=== PATIENT | female | born 1930 | race Caucasian/White ===

== ENCOUNTER 2018-05-27 13:05 | Inpatient (IN) | payer MEDICARE ==
[~2018-05-27] VITALS: Ht 154.9 cm; Wt 54.0 kg
[2018-05-27 13:32] LABS: BASO # 0.1 x10^3/uL (0.0-0.2); BASO % 1 % (0-3); EOS % 1 % (0-3); HEMATOCRIT 41.9 % (36.0-47.0); HEMOGLOBIN 13.9 g/dL (12.0-15.5); LYMPH % 51 % (24-48); MEAN CORPUSCULAR HEMOGLOBIN 30 pg (25-35); MEAN CORPUSCULAR HGB CONC 33 g/dL (31-37); MEAN CORPUSCULAR VOLUME 91 fL (79-100); MONO # 0.5 x10^3/uL (0.0-1.1); MONO % 8 % (0-9); NEUT # 2.3 x10^3uL (1.8-7.7); NEUT % 39 % (31-73); PLATELET COUNT 298 x10^3/uL (140-400); RED BLOOD COUNT 4.59 x10^6/uL (3.50-5.40); RED CELL DISTRIBUTION WIDTH 13.4 % (11.5-14.5); WHITE BLOOD COUNT 5.9 x10^3/uL (4.0-11.0)
[2018-05-27 13:40] LABS: PROTHROMBIN TIME PATIENT 13.6 SEC (11.7-14.0)
[2018-05-27 13:45] LABS: CALCIUM 9.6 mg/dL (8.5-10.1); CREATININE 0.7 mg/dL (0.6-1.0); POTASSIUM 3.7 mmol/L (3.5-5.1)
[2018-05-27 13:50] LABS: DIRECT BILIRUBIN 0.1 mg/dL (0.0-0.2); TOTAL BILIRUBIN 0.4 mg/dL (0.2-1.0); TOTAL PROTEIN 7.1 g/dL (6.4-8.2)
--- NOTE | 2018-05-27 14:21 | RAD ---
PQRS Compliance Statement: One or more of the following individualized dose reduction techniques were utilized for this examination: 1. Automated exposure control 2. Adjustment of the mA and/or kV according to patient size 3. Use of iterative reconstruction technique CT head without contrast 05/27/2018 1:41 PM INDICATION: Confusion COMPARISON: None available TECHNIQUE: Multiple axial CT images of the head were obtained from skull base through the vertex without intravenous contrast. FINDINGS: Head: Ventricles, sulci and basal cisterns are prominent compatible with mild generalized cerebral volume loss. . Low-attenuation in the periventricular white matter is suggestive of chronic small vessel ischemic changes. There is no hydrocephalus. Zuniga-white matter differentiation is normal. There is no acute intracranial hemorrhage. There is no mass, mass effect or midline shift. 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 Visualized portions of the orbits are normal with exception of bilateral lens replacement and senescent calcification. Mild mucosal thickening of the left sphenoid sinus is identified. Mastoid air cells are well aerated. Scalp and calvaria are normal. IMPRESSION: No acute intracranial hemorrhage. Mild generalized cerebral volume loss. Low-attenuation in the periventricular white matter is suggestive of chronic small vessel ischemic changes. There is a remote lacunar infarct in the left moise. Electronically signed by: Dorinda Jeffery MD (05/27/2018 2:18 PM) [id number]
[2018-05-27] MEDS ORDERED: IV NORMAL SALINE 1000ML BAG 1,000 ML IV SCH (14:33)
[2018-05-27] MEDS ORDERED: ONDANSETRON PF 4 MG/2 ML VIAL. IV PRN ×2 (14:45→15:15)
--- NOTE | 2018-05-27 14:46 | RAD ---
CHEST AP ONLY Clinical indications: CHEST PAIN COMPARISON: None available. Findings: No acute lung infiltrate or pleural effusion or pulmonary edema or lung mass or pneumothorax is seen. The heart size, pulmonary vasculature, mediastinum and both leah are unremarkable. Subluxation of the humeral head of the left shoulder is seen which may be secondary to chronic rotator cuff tear. Impression: No acute radiographic abnormality is seen. Electronically signed by: Benjamin Bell MD (05/27/2018 2:43 PM) [place] [id number]
--- NOTE | 2018-05-27 14:57 | PHYS DOC ---
Past Medical History Past Medical History: Asthma, CHF, Hypertension, Other Additional Past Medical Histor: WEAKNESS, NECK FX Past Surgical History: Other Additional Past Surgical Histo: UNKNOWN Alcohol Use: None Drug Use: None Adult General Chief Complaint Chief Complaint: ALTERED MENTAL STATUS HPI HPI 87-year-old female presenting to the emergency department today with decreased level of consciousness. She comes from the detention after they report she has decreasing level of consciousness. They last saw around 9:00 where she had normal mentation. EMS reports a more abrupt change in consciousness. The son who came later in the emergency department course states that this actually has been happening for more for 2 months. The patient denies being in any pain. For me the patient opens her eyes spontaneously makes eye contact and is oriented to year. Review of systems is negative for chest pain shortness of breath abdominal pain nausea vomiting. All other review of systems is negative. ED course: 79-year-old female presenting with decreasing level of consciousness. Here in the emergency department she is alert and oriented. On arrival vital signs show her to be afebrile with a normal heart rate. Blood pressure mildly elevated. CBC unremarkable. Chemistry panel unremarkable. Normal troponin. Normal coags. CT the head shows a remote lacunar infarct. Otherwise chest x-ray reviewed by myself shows clear lungs bilaterally without obvious infiltrate or pneumothorax. On reexamination she continued to need is to be alert however given concerns and this remote lacunar infarct we will admit her for neurology consultation. I spoke with Dr. Fisher who accepted her for admission. Basic bridge orders placed. Current Medications Current Medications Current Medications Medications (Trade) Dose Ordered Sig/No Start Time Stop Time Status Last Admin Dose Admin Ondansetron HCl (Zofran) 4 mg PRN Q8HRS PRN 05/27/18 14:45 05/28/18 14:44 UNV Sodium Chloride 1,000 ml @ 70 mls/hr [id number] 05/27/18 14:33 05/27/18 18:32 UNV Physical Exam Physical Exam Constitutional: Well developed, well nourished, no acute distress, non-toxic appearance. [] HENT: Normocephalic, atraumatic, bilateral external ears normal, oropharynx moist, no oral exudates, nose normal. [] Eyes: PERRLA, EOMI, conjunctiva normal, no discharge. [] Neck: Normal range of motion, no tenderness, supple, no stridor. [] Cardiovascular:Heart rate regular rhythm, no murmur [] Lungs & Thorax: Bilateral breath sounds clear to auscultation [] Abdomen: Bowel sounds normal, soft, no tenderness, no masses, no pulsatile masses. [] Skin: Warm, dry, no erythema, no rash. [] Back: No tenderness, no CVA tenderness. [] Extremities: No tenderness, no cyanosis, no clubbing, ROM intact, no edema. [] Neurologic: Mental status: Awake oriented and alert Cranial nerves: Extraocular movements intact, eyebrows elayne bilaterally, smile symmetric, uvula elevation nl, shoulder shrug intact bilaterally, tongue protrusion normal DTRs: 2+ Sensation: equal and normal in all extremities Strength: 5/5 in upper and lower extremities bilaterally Psychologic: Affect normal, judgement normal, mood normal. [] Current Patient Data Vital Signs Vital Signs Date Time Temp Pulse Resp B/P (MAP) Pulse Ox O2 Delivery O2 Flow Rate FiO2 05/27/18 13:05 97.6 68 18 164/80 (108) 96 Room Air 97.6 Lab Values Laboratory Tests Test 05/27/18 13:20 White Blood Count 5.9 x10^3/uL (4.0-11.0) Red Blood Count 4.59 x10^6/uL (3.50-5.40) Hemoglobin 13.9 g/dL (12.0-15.5) Hematocrit 41.9 % (36.0-47.0) Mean Corpuscular Volume 91 fL (79-100) Mean Corpuscular Hemoglobin 30 pg (25-35) Mean Corpuscular Hemoglobin Concent 33 g/dL (31-37) Red Cell Distribution Width 13.4 % (11.5-14.5) Platelet Count 298 x10^3/uL (140-400) Neutrophils (%) (Auto) 39 % (31-73) Lymphocytes (%) (Auto) 51 % (24-48) H Monocytes (%) (Auto) 8 % (0-9) Eosinophils (%) (Auto) 1 % (0-3) Basophils (%) (Auto) 1 % (0-3) Neutrophils # (Auto) 2.3 x10^3uL (1.8-7.7) Lymphocytes # (Auto) 3.0 x10^3/uL (1.0-4.8) Monocytes # (Auto) 0.5 x10^3/uL (0.0-1.1) Eosinophils # (Auto) 0.0 x10^3/uL (0.0-0.7) Basophils # (Auto) 0.1 x10^3/uL (0.0-0.2) Prothrombin Time 13.6 SEC (11.7-14.0) Prothrombin Time INR 1.1 (0.8-1.1) PTT 31 SEC (24-38) Sodium Level 137 mmol/L (136-145) Potassium Level 3.7 mmol/L (3.5-5.1) Chloride Level 98 mmol/L (98-107) Carbon Dioxide Level 28 mmol/L (21-32) Anion Gap 11 (6-14) Blood Urea Nitrogen 19 mg/dL (7-20) Creatinine 0.7 mg/dL (0.6-1.0) Estimated GFR (Cockcroft-Gault) 79.0 Glucose Level 111 mg/dL (70-99) H Calcium Level 9.6 mg/dL (8.5-10.1) Total Bilirubin 0.4 mg/dL (0.2-1.0) Direct Bilirubin 0.1 mg/dL (0.0-0.2) Aspartate Amino Transferase (AST) 31 U/L (15-37) Alanine Aminotransferase (ALT) 28 U/L (14-59) Alkaline Phosphatase 81 U/L (46-116) Troponin I Quantitative < 0.017 ng/mL (0.000-0.055) Total Protein 7.1 g/dL (6.4-8.2) Albumin 4.0 g/dL (3.4-5.0) Lipase 118 U/L (73-393) Laboratory Tests 05/27/18 13:20 Laboratory Tests 05/27/18 13:20 EKG EKG [] Radiology/Procedures Radiology/Procedures [] Course & Med Decision Making Course & Med Decision Making Pertinent Labs and Imaging studies reviewed. (See chart for details) [] Dragon Disclaimer Dragon Disclaimer This electronic medical record was generated, in whole or in part, using a voice recognition dictation system. Departure Departure Impression: Primary Impression: Decreased level of consciousness Disposition: ADMITTED INPATIENT Admitting Physician: Poonam Fisher Condition: STABLE JOCELIN DEL REAL MD May 27, 2018 14:56
[2018-05-27] MEDS ORDERED: ACETAMINOPHEN 500 MG TABLET PO PRN (15:15)
--- NOTE | 2018-05-27 15:18 | PDOC1 ---
History and Physical Date of Admission Date of Admission DATE: 05/27/18 TIME: 15:13 Identification/Chief Complaint Chief Complaint MOre forgetful now at times, dec PO, some confusion Source Source: Caregiver, Chart review, Patient History of Present Illness History of Present Illness 87-year-old white female lives in [place] and uses walker sometimes, brought in by concerned family because of the above chief complaint. Sounds like dementia features beginning. Had some neck surgeries July or August this year. Also needed some hospitalization for 1 week and another institution was told to have transient amnesia and never got back to baseline. HAd MRI, neuro etc and neg work up. She is a full code as I have verified with family. Family has noticed more forgetfulness, occasional confusion. Patient knows she is in the hospital but looks uncomfortable but that's because of her chronic neck pain - prev numerous neck sxs She actually does not want to be admitted CT head and chest x-ray is negative except for brain atrophy/chronic small vessel change. Family concerned about the decreased [id number] Blood work is negative. We are waiting for a UA. Rule out any infectious or reversible problems otherwise this may just be beginning dementia. Consulted neurology, I did order ESR TSH B12. Home meds she can continue, they cannot recall the names of her medications but it is ok to cont them all. Past Medical History CENTRAL NERVOUS SYSTEM: Dementia Past Surgical History Past Surgical History: No pertinent history Family History Family History: No Significant Social History Smoke: No ALCOHOL: none Drugs: None Current Problem List Problem List Problems Medical Problems: (1) Decreased level of consciousness Status: Acute Current Medications Current Medications Current Medications Ondansetron HCl (Zofran) 4 mg PRN Q8HRS PRN IV NAUSEA/VOMITING; Start 05/27/18 at 14:45; Stop 05/28/18 at 14:44; Status UNV Sodium Chloride 1,000 ml @ 70 mls/hr [id number] IV ; Start 05/27/18 at 14:33; Stop 05/27/18 at 18:32; Status UNV Allergies Allergies: Coded Allergies: No Known Drug Allergies (Unverified , 05/27/18) ROS Review of System limited, forgetful features-hard of hearing Physical Exam General: Cooperative, No acute distress HEENT: Atraumatic, PERRLA, EOMI Lungs: Clear to auscultation, Normal air movement Heart: S1S2, RRR, no thrills, no rubs, no gallops, no murmurs Cardiovascular: S1, S2 Breasts: Normal, Rt breast nml w/o mass, Lt breast nml w/o mass, Nipples normal Abdomen: Normal bowel sounds, Soft, No tenderness, No hepatosplenomegaly, No masses Rectal Exam: not examined PELVIC: Nml ext genitalia Extremities: No clubbing, No cyanosis, No edema, Normal pulses, No tenderness/ swelling Skin: No rashes, No breakdown, No significant lesion Neuro: Normal gait, Normal speech, Strength at 5/5 X4 ext, Normal tone, Sensation intact, Cranial nerves 3-12 NL, Reflexes 2+ Psych/Mental Status: Mental status NL, Mood NL Vitals Vitals Vital Signs Date Time Temp Pulse Resp B/P (MAP) Pulse Ox O2 Delivery O2 Flow Rate FiO2 05/27/18 13:05 97.6 68 18 164/80 (108) 96 Room Air 97.6 Labs Labs Laboratory Tests Test 05/27/18 13:20 White Blood Count 5.9 x10^3/uL (4.0-11.0) Red Blood Count 4.59 x10^6/uL (3.50-5.40) Hemoglobin 13.9 g/dL (12.0-15.5) Hematocrit 41.9 % (36.0-47.0) Mean Corpuscular Volume 91 fL (79-100) Mean Corpuscular Hemoglobin 30 pg (25-35) Mean Corpuscular Hemoglobin Concent 33 g/dL (31-37) Red Cell Distribution Width 13.4 % (11.5-14.5) Platelet Count 298 x10^3/uL (140-400) Neutrophils (%) (Auto) 39 % (31-73) Lymphocytes (%) (Auto) 51 % (24-48) Monocytes (%) (Auto) 8 % (0-9) Eosinophils (%) (Auto) 1 % (0-3) Basophils (%) (Auto) 1 % (0-3) Neutrophils # (Auto) 2.3 x10^3uL (1.8-7.7) Lymphocytes # (Auto) 3.0 x10^3/uL (1.0-4.8) Monocytes # (Auto) 0.5 x10^3/uL (0.0-1.1) Eosinophils # (Auto) 0.0 x10^3/uL (0.0-0.7) Basophils # (Auto) 0.1 x10^3/uL (0.0-0.2) Prothrombin Time 13.6 SEC (11.7-14.0) Prothromb Time International Ratio 1.1 (0.8-1.1) Activated Partial Thromboplast Time 31 SEC (24-38) Sodium Level 137 mmol/L (136-145) Potassium Level 3.7 mmol/L (3.5-5.1) Chloride Level 98 mmol/L (98-107) Carbon Dioxide Level 28 mmol/L (21-32) Anion Gap 11 (6-14) Blood Urea Nitrogen 19 mg/dL (7-20) Creatinine 0.7 mg/dL (0.6-1.0) Estimated GFR (Cockcroft-Gault) 79.0 Glucose Level 111 mg/dL (70-99) Calcium Level 9.6 mg/dL (8.5-10.1) Total Bilirubin 0.4 mg/dL (0.2-1.0) Direct Bilirubin 0.1 mg/dL (0.0-0.2) Aspartate Amino Transf (AST/SGOT) 31 U/L (15-37) Alanine Aminotransferase (ALT/SGPT) 28 U/L (14-59) Alkaline Phosphatase 81 U/L (46-116) Troponin I Quantitative < 0.017 ng/mL (0.000-0.055) Total Protein 7.1 g/dL (6.4-8.2) Albumin 4.0 g/dL (3.4-5.0) Lipase 118 U/L (73-393) Laboratory Tests Test 05/27/18 13:20 White Blood Count 5.9 x10^3/uL (4.0-11.0) Red Blood Count 4.59 x10^6/uL (3.50-5.40) Hemoglobin 13.9 g/dL (12.0-15.5) Hematocrit 41.9 % (36.0-47.0) Mean Corpuscular Volume 91 fL (79-100) Mean Corpuscular Hemoglobin 30 pg (25-35) Mean Corpuscular Hemoglobin Concent 33 g/dL (31-37) Red Cell Distribution Width 13.4 % (11.5-14.5) Platelet Count 298 x10^3/uL (140-400) Neutrophils (%) (Auto) 39 % (31-73) Lymphocytes (%) (Auto) 51 % (24-48) Monocytes (%) (Auto) 8 % (0-9) Eosinophils (%) (Auto) 1 % (0-3) Basophils (%) (Auto) 1 % (0-3) Neutrophils # (Auto) 2.3 x10^3uL (1.8-7.7) Lymphocytes # (Auto) 3.0 x10^3/uL (1.0-4.8) Monocytes # (Auto) 0.5 x10^3/uL (0.0-1.1) Eosinophils # (Auto) 0.0 x10^3/uL (0.0-0.7) Basophils # (Auto) 0.1 x10^3/uL (0.0-0.2) Prothrombin Time 13.6 SEC (11.7-14.0) Prothromb Time International Ratio 1.1 (0.8-1.1) Activated Partial Thromboplast Time 31 SEC (24-38) Sodium Level 137 mmol/L (136-145) Potassium Level 3.7 mmol/L (3.5-5.1) Chloride Level 98 mmol/L (98-107) Carbon Dioxide Level 28 mmol/L (21-32) Anion Gap 11 (6-14) Blood Urea Nitrogen 19 mg/dL (7-20) Creatinine 0.7 mg/dL (0.6-1.0) Estimated GFR (Cockcroft-Gault) 79.0 Glucose Level 111 mg/dL (70-99) Calcium Level 9.6 mg/dL (8.5-10.1) Total Bilirubin 0.4 mg/dL (0.2-1.0) Direct Bilirubin 0.1 mg/dL (0.0-0.2) Aspartate Amino Transf (AST/SGOT) 31 U/L (15-37) Alanine Aminotransferase (ALT/SGPT) 28 U/L (14-59) Alkaline Phosphatase 81 U/L (46-116) Troponin I Quantitative < 0.017 ng/mL (0.000-0.055) Total Protein 7.1 g/dL (6.4-8.2) Albumin 4.0 g/dL (3.4-5.0) Lipase 118 U/L (73-393) VTE Prophylaxis Ordered VTE Prophylaxis Devices: Yes VTE Pharmacological Prophylaxi: Yes Assessment/Plan Assessment/Plan Dementia features Geriatric Encephalopathy-occasional confusion PLAN: Okay for diet Okay to cont all home meds Neurology consult Check B12 ESR TSH Fall risk PT OT Further recs pending above FULL CODE Seen at ER MIRA NAIR MD May 27, 2018 15:18
[2018-05-27 15:31] LABS: BILIRUBIN,URINE NEGATIVE (NEG); CLARITY,URINE CLEAR; COLOR,URINE YELLOW; NITRITE,URINE NEGATIVE (NEG); PROTEIN,URINE NEGATIVE (NEG-TRACE)
[2018-05-27 15:38] LABS: BACTERIA,URINE 0 /HPF (0-FEW); WBC,URINE 0 /HPF (0-4)
[2018-05-27 17:46] VITALS: BP 162/61
[2018-05-27 19:00] VITALS: BP 138/60
[2018-05-27] MEDS: ACETAMINOPHEN/CODEINE 300/30MG TABLET. PO PRN (20:50)
[2018-05-27] MEDS: LIDOCAINE (700MG/PATCH) PATCH. TD PRN (20:51)
[2018-05-27 23:00] VITALS: BP 115/47
[2018-05-28] MEDS ORDERED: IMIP10TA2 PO (00:03)
[2018-05-28] MEDS ORDERED: RANI150T2 PO (00:03)
[2018-05-28] MEDS ORDERED: CHOL10003 PO (00:03)
[2018-05-28] MEDS ORDERED: LORA10TA3 PO (00:03)
[2018-05-28] MEDS ORDERED: ALEN70TA6 PO (00:03)
[2018-05-28] MEDS ORDERED: FLUT16SP NS (00:03)
[2018-05-28] MEDS ORDERED: MULT-480 PO (00:03)
[2018-05-28] MEDS ORDERED: BISA-42 PO (00:03)
[2018-05-28] MEDS ORDERED: ASPI-630 PO (00:03)
[2018-05-28] MEDS ORDERED: CALC1TAB75 PO (00:03)
[2018-05-28] MEDS ORDERED: MENT118G TP (00:03)
[2018-05-28] MEDS ORDERED: SENN1TAB62 PO (00:03)
[2018-05-28] MEDS ORDERED: HYDR-2145 PO (00:03)
[2018-05-28] MEDS ORDERED: ACET325T9 PO (00:03)
[2018-05-28] MEDS ORDERED: METO25TA4 PO (00:03)
[2018-05-28 02:54] VITALS: BP 110/68
[2018-05-28 06:28] LABS: BASO % 1 % (0-3); EOS % 1 % (0-3); HEMATOCRIT 37.7 % (36.0-47.0); LYMPH # 3.1 x10^3/uL (1.0-4.8); LYMPH % 55 % (24-48); MEAN CORPUSCULAR HEMOGLOBIN 31 pg (25-35); MEAN CORPUSCULAR HGB CONC 34 g/dL (31-37); MEAN CORPUSCULAR VOLUME 91 fL (79-100); MONO # 0.5 x10^3/uL (0.0-1.1); MONO % 9 % (0-9); NEUT # 1.9 x10^3uL (1.8-7.7); NEUT % 34 % (31-73); PLATELET COUNT 267 x10^3/uL (140-400); RED BLOOD COUNT 4.17 x10^6/uL (3.50-5.40); RED CELL DISTRIBUTION WIDTH 13.5 % (11.5-14.5); WHITE BLOOD COUNT 5.6 x10^3/uL (4.0-11.0)
[2018-05-28 06:47] LABS: CALCIUM 8.9 mg/dL (8.5-10.1); CREATININE 0.7 mg/dL (0.6-1.0); POTASSIUM 3.2 mmol/L (3.5-5.1)
[2018-05-28 07:00] VITALS: BP 137/72
[2018-05-28] MEDS ORDERED: POTASSIUM CHLORIDE 20 MEQ TABLET.ER. PO ONE (08:45)
[2018-05-28] MEDS ORDERED: ACETAMINOPHEN 325 MG TABLET. PO PRN (10:15)
[2018-05-28] MEDS ORDERED: BISACODYL 5 MG TABLET.DR. PO PRN (10:15)
[2018-05-28] MEDS ORDERED: FLUTICASONE 50MCG/NASAL SPRAY 16GM BOTTLE. NS PRN (10:15)
[2018-05-28] MEDS ORDERED: SENNOSIDES/DOCUSATE 8.6/50MG TABLET. PO PRN (10:15)
[2018-05-28] MEDS ORDERED: CETIRIZINE HCL 10 MG TABLET. PO PRN (10:34)
[2018-05-28] MEDS ORDERED: methylPREDNISolone ACETATE 40 MG/ML VIAL. IM ONE (10:45)
[2018-05-28] MEDS ORDERED: BUPIVACAINE MPF 0.25% 10 ML VIAL. IJ ONE (10:45)
[2018-05-28 11:00] VITALS: BP 125/63
--- NOTE | 2018-05-28 11:07 | PDOC ---
PROGRESS NOTES Chief Complaint Chief Complaint Dementia features Geriatric Encephalopathy-occasional confusion - intermittent Acute on chronic Knee pain, OA - - intermittent injections History of Present Illness History of Present Illness SHe looks better today! Family at bedside Workup infections route is negative TSH B12 also normal Neurology has yet to see Some knee pain gets intermittent injections by PCP interested in having injections today Plan: consult physiatry Neurology has yet to see-so far workup negative I think this is dementia with some hallucination features Family interested in SNU-we'll consult social work pending PT recommendations FULL CODE - as dw family Vitals Vitals Vital Signs Date Time Temp Pulse Resp B/P (MAP) Pulse Ox O2 Delivery O2 Flow Rate FiO2 05/28/18 08:00 Room Air 05/28/18 07:00 97.8 102 16 137/72 (93) 97 97.8 Physical Exam General: Alert, Oriented X3, Cooperative, No acute distress Heart: Regular rate, Normal S1, Normal S2 Lungs: Clear Abdomen: Normal bowel sounds, Soft, No tenderness, No hepatosplenomegaly, No masses Extremities: No clubbing, No cyanosis, No edema, Normal pulses, No tenderness/ swelling Skin: No rashes, No breakdown, No significant lesion Labs LABS Laboratory Tests Test 05/27/18 13:20 05/27/18 13:30 05/28/18 05:57 White Blood Count 5.9 x10^3/uL (4.0-11.0) 5.6 x10^3/uL (4.0-11.0) Red Blood Count 4.59 x10^6/uL (3.50-5.40) 4.17 x10^6/uL (3.50-5.40) Hemoglobin 13.9 g/dL (12.0-15.5) 13.0 g/dL (12.0-15.5) Hematocrit 41.9 % (36.0-47.0) 37.7 % (36.0-47.0) Mean Corpuscular Volume 91 fL (79-100) 91 fL (79-100) Mean Corpuscular Hemoglobin 30 pg (25-35) 31 pg (25-35) Mean Corpuscular Hemoglobin Concent 33 g/dL (31-37) 34 g/dL (31-37) Red Cell Distribution Width 13.4 % (11.5-14.5) 13.5 % (11.5-14.5) Platelet Count 298 x10^3/uL (140-400) 267 x10^3/uL (140-400) Neutrophils (%) (Auto) 39 % (31-73) 34 % (31-73) Lymphocytes (%) (Auto) 51 % (24-48) 55 % (24-48) Monocytes (%) (Auto) 8 % (0-9) 9 % (0-9) Eosinophils (%) (Auto) 1 % (0-3) 1 % (0-3) Basophils (%) (Auto) 1 % (0-3) 1 % (0-3) Neutrophils # (Auto) 2.3 x10^3uL (1.8-7.7) 1.9 x10^3uL (1.8-7.7) Lymphocytes # (Auto) 3.0 x10^3/uL (1.0-4.8) 3.1 x10^3/uL (1.0-4.8) Monocytes # (Auto) 0.5 x10^3/uL (0.0-1.1) 0.5 x10^3/uL (0.0-1.1) Eosinophils # (Auto) 0.0 x10^3/uL (0.0-0.7) 0.0 x10^3/uL (0.0-0.7) Basophils # (Auto) 0.1 x10^3/uL (0.0-0.2) 0.0 x10^3/uL (0.0-0.2) Erythrocyte Sedimentation Rate 15 (0-25) Prothrombin Time 13.6 SEC (11.7-14.0) Prothromb Time International Ratio 1.1 (0.8-1.1) Activated Partial Thromboplast Time 31 SEC (24-38) Sodium Level 137 mmol/L (136-145) 138 mmol/L (136-145) Potassium Level 3.7 mmol/L (3.5-5.1) 3.2 mmol/L (3.5-5.1) Chloride Level 98 mmol/L (98-107) 101 mmol/L (98-107) Carbon Dioxide Level 28 mmol/L (21-32) 23 mmol/L (21-32) Anion Gap 11 (6-14) 14 (6-14) Blood Urea Nitrogen 19 mg/dL (7-20) 18 mg/dL (7-20) Creatinine 0.7 mg/dL (0.6-1.0) 0.7 mg/dL (0.6-1.0) Estimated GFR (Cockcroft-Gault) 79.0 79.0 Glucose Level 111 mg/dL (70-99) 99 mg/dL (70-99) Calcium Level 9.6 mg/dL (8.5-10.1) 8.9 mg/dL (8.5-10.1) Total Bilirubin 0.4 mg/dL (0.2-1.0) Direct Bilirubin 0.1 mg/dL (0.0-0.2) Aspartate Amino Transf (AST/SGOT) 31 U/L (15-37) Alanine Aminotransferase (ALT/SGPT) 28 U/L (14-59) Alkaline Phosphatase 81 U/L (46-116) Troponin I Quantitative < 0.017 ng/mL (0.000-0.055) Total Protein 7.1 g/dL (6.4-8.2) Albumin 4.0 g/dL (3.4-5.0) Lipase 118 U/L (73-393) Vitamin B12 Level 820 pg/mL (247-911) Thyroid Stimulating Hormone (TSH) 3.292 uIU/mL (0.358-3.74) Urine Collection Type U cath Urine Color Yellow Urine Clarity Clear Urine pH 6.0 Urine Specific [place] 1.015 Urine Protein Negative mg/dL (NEG-TRACE) Urine Glucose (UA) Negative mg/dL (NEG) Urine Ketones (Stick) Negative mg/dL (NEG) Urine Blood Negative (NEG) Urine Nitrite Negative (NEG) Urine Bilirubin Negative (NEG) Urine Urobilinogen Dipstick 1.0 mg/dL (0.2 mg/dL) Urine Leukocyte Esterase Negative (NEG) Urine RBC 3-5 /HPF (0-2) Urine WBC 0 /HPF (0-4) Urine Renal Epithelial Cells Occ /LPF Urine Bacteria 0 /HPF (0-FEW) Urine Mucus Mod /LPF Review of Systems Review of Systems A 14 point ROS was completed with the following noted as positive: Other systems reviewed and negative. \CONSTITUTIONAL: No fever or chills EYES: No recent changes SKIN: No rash or itching CARDIOVASCULAR: No chest pain, syncope, palpitations, or edema RESPIRATORY: No SOB or cough GASTROINTESTINAL: No nausea, vomiting or abdominal pain NEUROLOGICAL: No headaches or weakness ENDOCRINE: No cold or heat intolerance GENITOURINARY: No urgency or frequency of urination MUSCULOSKELETAL: No back pain or joint pain LYMPHATICS: No enlarged lymph nodes PSYCHIATRIC: No anxiety or depression Assessment and Plan Assessmemt and Plan Problems Medical Problems: (1) Decreased level of consciousness Status: Acute Comment Review of Relevant I have reviewed the following items timoteo (where applicable) has been applied. Labs Laboratory Tests Test 05/27/18 13:20 05/27/18 13:30 05/28/18 05:57 White Blood Count 5.9 x10^3/uL (4.0-11.0) 5.6 x10^3/uL (4.0-11.0) Red Blood Count 4.59 x10^6/uL (3.50-5.40) 4.17 x10^6/uL (3.50-5.40) Hemoglobin 13.9 g/dL (12.0-15.5) 13.0 g/dL (12.0-15.5) Hematocrit 41.9 % (36.0-47.0) 37.7 % (36.0-47.0) Mean Corpuscular Volume 91 fL (79-100) 91 fL (79-100) Mean Corpuscular Hemoglobin 30 pg (25-35) 31 pg (25-35) Mean Corpuscular Hemoglobin Concent 33 g/dL (31-37) 34 g/dL (31-37) Red Cell Distribution Width 13.4 % (11.5-14.5) 13.5 % (11.5-14.5) Platelet Count 298 x10^3/uL (140-400) 267 x10^3/uL (140-400) Neutrophils (%) (Auto) 39 % (31-73) 34 % (31-73) Lymphocytes (%) (Auto) 51 % (24-48) 55 % (24-48) Monocytes (%) (Auto) 8 % (0-9) 9 % (0-9) Eosinophils (%) (Auto) 1 % (0-3) 1 % (0-3) Basophils (%) (Auto) 1 % (0-3) 1 % (0-3) Neutrophils # (Auto) 2.3 x10^3uL (1.8-7.7) 1.9 x10^3uL (1.8-7.7) Lymphocytes # (Auto) 3.0 x10^3/uL (1.0-4.8) 3.1 x10^3/uL (1.0-4.8) Monocytes # (Auto) 0.5 x10^3/uL (0.0-1.1) 0.5 x10^3/uL (0.0-1.1) Eosinophils # (Auto) 0.0 x10^3/uL (0.0-0.7) 0.0 x10^3/uL (0.0-0.7) Basophils # (Auto) 0.1 x10^3/uL (0.0-0.2) 0.0 x10^3/uL (0.0-0.2) Erythrocyte Sedimentation Rate 15 (0-25) Prothrombin Time 13.6 SEC (11.7-14.0) Prothromb Time International Ratio 1.1 (0.8-1.1) Activated Partial Thromboplast Time 31 SEC (24-38) Sodium Level 137 mmol/L (136-145) 138 mmol/L (136-145) Potassium Level 3.7 mmol/L (3.5-5.1) 3.2 mmol/L (3.5-5.1) Chloride Level 98 mmol/L (98-107) 101 mmol/L (98-107) Carbon Dioxide Level 28 mmol/L (21-32) 23 mmol/L (21-32) Anion Gap 11 (6-14) 14 (6-14) Blood Urea Nitrogen 19 mg/dL (7-20) 18 mg/dL (7-20) Creatinine 0.7 mg/dL (0.6-1.0) 0.7 mg/dL (0.6-1.0) Estimated GFR (Cockcroft-Gault) 79.0 79.0 Glucose Level 111 mg/dL (70-99) 99 mg/dL (70-99) Calcium Level 9.6 mg/dL (8.5-10.1) 8.9 mg/dL (8.5-10.1) Total Bilirubin 0.4 mg/dL (0.2-1.0) Direct Bilirubin 0.1 mg/dL (0.0-0.2) Aspartate Amino Transf (AST/SGOT) 31 U/L (15-37) Alanine Aminotransferase (ALT/SGPT) 28 U/L (14-59) Alkaline Phosphatase 81 U/L (46-116) Troponin I Quantitative < 0.017 ng/mL (0.000-0.055) Total Protein 7.1 g/dL (6.4-8.2) Albumin 4.0 g/dL (3.4-5.0) Lipase 118 U/L (73-393) Vitamin B12 Level 820 pg/mL (247-911) Thyroid Stimulating Hormone (TSH) 3.292 uIU/mL (0.358-3.74) Urine Collection Type U cath Urine Color Yellow Urine Clarity Clear Urine pH 6.0 Urine Specific [place] 1.015 Urine Protein Negative mg/dL (NEG-TRACE) Urine Glucose (UA) Negative mg/dL (NEG) Urine Ketones (Stick) Negative mg/dL (NEG) Urine Blood Negative (NEG) Urine Nitrite Negative (NEG) Urine Bilirubin Negative (NEG) Urine Urobilinogen Dipstick 1.0 mg/dL (0.2 mg/dL) Urine Leukocyte Esterase Negative (NEG) Urine RBC 3-5 /HPF (0-2) Urine WBC 0 /HPF (0-4) Urine Renal Epithelial Cells Occ /LPF Urine Bacteria 0 /HPF (0-FEW) Urine Mucus Mod /LPF Laboratory Tests Test 05/27/18 13:20 05/27/18 13:30 05/28/18 05:57 White Blood Count 5.9 x10^3/uL (4.0-11.0) 5.6 x10^3/uL (4.0-11.0) Red Blood Count 4.59 x10^6/uL (3.50-5.40) 4.17 x10^6/uL (3.50-5.40) Hemoglobin 13.9 g/dL (12.0-15.5) 13.0 g/dL (12.0-15.5) Hematocrit 41.9 % (36.0-47.0) 37.7 % (36.0-47.0) Mean Corpuscular Volume 91 fL (79-100) 91 fL (79-100) Mean Corpuscular Hemoglobin 30 pg (25-35) 31 pg (25-35) Mean Corpuscular Hemoglobin Concent 33 g/dL (31-37) 34 g/dL (31-37) Red Cell Distribution Width 13.4 % (11.5-14.5) 13.5 % (11.5-14.5) Platelet Count 298 x10^3/uL (140-400) 267 x10^3/uL (140-400) Neutrophils (%) (Auto) 39 % (31-73) 34 % (31-73) Lymphocytes (%) (Auto) 51 % (24-48) 55 % (24-48) Monocytes (%) (Auto) 8 % (0-9) 9 % (0-9) Eosinophils (%) (Auto) 1 % (0-3) 1 % (0-3) Basophils (%) (Auto) 1 % (0-3) 1 % (0-3) Neutrophils # (Auto) 2.3 x10^3uL (1.8-7.7) 1.9 x10^3uL (1.8-7.7) Lymphocytes # (Auto) 3.0 x10^3/uL (1.0-4.8) 3.1 x10^3/uL (1.0-4.8) Monocytes # (Auto) 0.5 x10^3/uL (0.0-1.1) 0.5 x10^3/uL (0.0-1.1) Eosinophils # (Auto) 0.0 x10^3/uL (0.0-0.7) 0.0 x10^3/uL (0.0-0.7) Basophils # (Auto) 0.1 x10^3/uL (0.0-0.2) 0.0 x10^3/uL (0.0-0.2) Erythrocyte Sedimentation Rate 15 (0-25) Prothrombin Time 13.6 SEC (11.7-14.0) Prothromb Time International Ratio 1.1 (0.8-1.1) Activated Partial Thromboplast Time 31 SEC (24-38) Sodium Level 137 mmol/L (136-145) 138 mmol/L (136-145) Potassium Level 3.7 mmol/L (3.5-5.1) 3.2 mmol/L (3.5-5.1) Chloride Level 98 mmol/L (98-107) 101 mmol/L (98-107) Carbon Dioxide Level 28 mmol/L (21-32) 23 mmol/L (21-32) Anion Gap 11 (6-14) 14 (6-14) Blood Urea Nitrogen 19 mg/dL (7-20) 18 mg/dL (7-20) Creatinine 0.7 mg/dL (0.6-1.0) 0.7 mg/dL (0.6-1.0) Estimated GFR (Cockcroft-Gault) 79.0 79.0 Glucose Level 111 mg/dL (70-99) 99 mg/dL (70-99) Calcium Level 9.6 mg/dL (8.5-10.1) 8.9 mg/dL (8.5-10.1) Total Bilirubin 0.4 mg/dL (0.2-1.0) Direct Bilirubin 0.1 mg/dL (0.0-0.2) Aspartate Amino Transf (AST/SGOT) 31 U/L (15-37) Alanine Aminotransferase (ALT/SGPT) 28 U/L (14-59) Alkaline Phosphatase 81 U/L (46-116) Troponin I Quantitative < 0.017 ng/mL (0.000-0.055) Total Protein 7.1 g/dL (6.4-8.2) Albumin 4.0 g/dL (3.4-5.0) Lipase 118 U/L (73-393) Vitamin B12 Level 820 pg/mL (247-911) Thyroid Stimulating Hormone (TSH) 3.292 uIU/mL (0.358-3.74) Urine Collection Type U cath Urine Color Yellow Urine Clarity Clear Urine pH 6.0 Urine Specific [place] 1.015 Urine Protein Negative mg/dL (NEG-TRACE) Urine Glucose (UA) Negative mg/dL (NEG) Urine Ketones (Stick) Negative mg/dL (NEG) Urine Blood Negative (NEG) Urine Nitrite Negative (NEG) Urine Bilirubin Negative (NEG) Urine Urobilinogen Dipstick 1.0 mg/dL (0.2 mg/dL) Urine Leukocyte Esterase Negative (NEG) Urine RBC 3-5 /HPF (0-2) Urine WBC 0 /HPF (0-4) Urine Renal Epithelial Cells Occ /LPF Urine Bacteria 0 /HPF (0-FEW) Urine Mucus Mod /LPF Medications Current Medications Ondansetron HCl (Zofran) 4 mg PRN Q8HRS PRN IV NAUSEA/VOMITING; Start 05/27/18 at 14:45; Stop 05/27/18 at 15:13; Status DC Sodium Chloride 1,000 ml @ 70 mls/hr [id number] IV Last administered on at 14:33; Start 05/27/18 at 14:33; Stop 05/27/18 at 18:32; Status DC Ondansetron HCl (Zofran) 4 mg PRN Q6HRS PRN IV NAUSEA/VOMITING; Start 05/27/18 at 15:15 Acetaminophen (Tylenol) 500 mg PRN Q6HRS PRN PO MILD PAIN / TEMP; Start at 15:15 Acetaminophen/ Codeine Phosphate (Tylenol #3) 1 tab PRN Q6HRS PRN PO MODERATE PAIN Last administered on 05/27/18at 20:50; Start 05/27/18 at 15:15 Lidocaine (Lidoderm) 1 patch PRN DAILY PRN TD TOPICAL PAIN Last administered on 05/27/18at 20:51; Start 05/27/18 at 15:15 Potassium Chloride (Klor-Con) 40 meq 1X ONCE PO ; Start 05/28/18 at 08:45; Stop 05/28/18 at 08:46; Status DC Acetaminophen (Tylenol) 650 mg PRN Q4HRS PRN PO MILD PAIN; Start 05/28/18 at 10 :15 Aspirin (Children'S Aspirin) 81 mg DAILY PO ; Start 05/28/18 at 11:00 Bisacodyl (Dulcolax Tab) 10 mg PRN DAILY PRN PO CONSTIPATION (2nd Choice); Start 05/28/18 at 10:15 Vitamin D (Vitamin D3) 3,000 unit DAILY PO ; Start 05/28/18 at 11:00 Fluticasone Propionate (Flonase) 2 spray PRN DAILY PRN NS ALLERGIES; Start at 10:15 Hydrochlorothiazide (Hydrodiuril) 25 mg DAILY PO ; Start 05/28/18 at 11:00 Metoprolol Tartrate (Lopressor) 25 mg BID PO ; Start 05/28/18 at 11:00 Senna/Docusate Sodium (Senna Plus) 1 tab PRN DAILY PRN PO CONSTIPATION (1st Choice); Start 05/28/18 at 10:15 Non-Formulary Medication (Alendronate Sodium ) 1 tab WEEKLY PO ; Start 06/04/18 at 09:00; Status UNV Calcium/Vitamin D (Oscal D 500mg/ 200uts) 1 tab DAILYWBKFT PO ; Start 05/28/18 at 12:00 Imipramine HCl (Tofranil) 12.5 mg DAILY PO ; Start 05/28/18 at 11:00 Cetirizine HCl (ZyrTEC) 10 mg PRN DAILY PRN PO ALLERGY SYMPTOMS; Start at 10:34 Multi-Ingredient Ointment (Analgesic Grady) 1 jose QID TP ; Start 05/28/18 at 12: 00 Multivitamins (Thera M Plus) 1 tab DAILY PO ; Start 05/28/18 at 11:00 Famotidine (Pepcid) 20 mg DAILY PO ; Start 05/28/18 at 11:00 Methylprednisolone Acetate (DEPO-Medrol 40MG VIAL) 40 mg 1X ONCE IM ; Start at 10:45; Stop 05/28/18 at 10:53; Status DC Bupivacaine HCl (Sensorcaine-Mpf 0.25%) 10 ml 1X ONCE IJ ; Start 05/28/18 at 10 :45; Stop 05/28/18 at 10:53; Status DC Diclofenac Sodium (Voltaren) 1 jose BID TP ; Start 05/28/18 at 11:00 Active Scripts Active Reported Senna Plus Tablet (Sennosides/Docusate Sodium) 1 Each Tablet 1 Each PO DAILY PRN Fluticasone Propionate Nasal [place] (Fluticasone Propionate) 16 Gm [place].susp 2 [place] NS DAILY PRN MDD daily Loratadine 10 Mg Tablet 1 Tab PO DAILY PRN MDD daily Dulcolax (Bisacodyl) 5 Mg Tablet.dr 10 Mg PO PRN DAILY PRN Biofreeze (Menthol) 118 Ml Gel..ml. 118 Ml TP Q2HR W/A Tylenol (Acetaminophen) 325 Mg Tablet 2 Tab PO PRN Q4HRS PRN Vitamin D3 (Cholecalciferol (Vitamin D3)) 1,000 Unit Tablet 3 Tab PO DAILY Thera-Tabs M [place] (Multivits,Ca,Minerals/Iron/Fa) 1 Each Tablet 1 Each PO DAILY Ranitidine Hcl 150 Mg Tablet 150 Mg PO DAILY Metoprolol Tartrate 25 Mg Tablet 1 Tab PO BID Imipramine Hcl 10 Mg Tablet 10 Mg PO DAILY Hydrochlorothiazide Tablet (Hydrochlorothiazide) 25 Mg Tablet 25 Mg PO DAILY Calcium 600 + Vit D 200 Tablet (Calcium Carbonate/Vitamin D3) 1 Each Tablet 1 Each PO DAILY Aspirin 81 Mg Tab.chew 1 Tab PO DAILY Alendronate Sodium 70 Mg Tablet 1 Tab PO WEEKLY Vitals/I & O Vital Sign - Last 24 Hours 05/27/18 05/27/18 05/27/18 05/27/18 13:05 14:05 15:05 16:05 Temp 97.6 97.6 Pulse 68 70 62 76 Resp 18 18 18 18 B/P (MAP) 164/80 (108) Pulse Ox 96 97 97 96 O2 Delivery Room Air 05/27/18 05/27/18 05/27/18 05/27/18 17:46 19:00 20:00 20:50 Temp 97.5 97.5 97.5 97.5 Pulse 67 78 Resp 18 18 18 B/P (MAP) 162/61 (94) 138/60 (86) Pulse Ox 95 98 98 O2 Delivery Room Air Room Air Room Air Room Air 05/27/18 05/27/18 05/28/18 05/28/18 21:50 23:00 02:54 07:00 Temp 98.3 97.7 97.8 98.3 97.7 97.8 Pulse 89 93 102 Resp 18 18 18 16 B/P (MAP) 115/47 (69) 110/68 (82) 137/72 (93) Pulse Ox 98 93 93 97 O2 Delivery Room Air Room Air Room Air Room Air 05/28/18 08:00 O2 Delivery Room Air Intake and Output 05/27/18 05/27/18 05/28/18 14:59 22:59 06:59 Intake Total 0 ml Balance 0 ml MIRA NAIR MD May 28, 2018 11:07
[2018-05-28] MEDS: CHOLECALCIFEROL (VITAMIN D3) 1,000 UNIT TABLET PO SCH (11:17)
[2018-05-28] MEDS: METOPROLOL TART IMMED RELEASE 25 MG TABLET. PO SCH ×2 (11:17→20:35)
[2018-05-28] MEDS: FAMOTIDINE 20 MG TABLET. PO SCH (11:17)
[2018-05-28] MEDS: CALCIUM CARB/VIT D3 500/200 TABLET. PO SCH (11:17)
[2018-05-28] MEDS: hydroCHLOROthiazide 25 MG TABLET PO SCH (11:17)
[2018-05-28] MEDS: ASPIRIN CHEWABLE 81 MG TABLET. PO SCH (11:17)
[2018-05-28] MEDS: MULTIVITAMIN with MINERAL TABLET. PO SCH (11:17)
[2018-05-28] MEDS: IMIPRAMINE 25 MG TABLET PO SCH (11:17)
[2018-05-28] MEDS: LIDOCAINE (700MG/PATCH) PATCH. TD PRN (11:18)
[2018-05-28] MEDS: DICLOFENAC SODIUM 1% TOPICAL GEL 100GM TUBE. TP SCH ×2 (11:18→20:34)
[2018-05-28] MEDS ORDERED: METHYL SALICYLATE/MENTHOL TOPICAL OINTMENT 29GM TUBE. TP SCH (12:00)
[2018-05-28] MEDS: ACETAMINOPHEN/CODEINE 300/30MG TABLET. PO PRN ×2 (14:24→20:35)
--- NOTE | 2018-05-28 14:44 | EKG ---
[facility] [address] [place] [address] Test Date: 2018-05-27 Test Time: 13:11:27 Pat Name: NAOMIE ROCHA Department: Room: 538 1 Gender: F Behavioral Intervention Specialist: : [id number] Requested By: JOCELIN DEL REAL Order Number: [id number] Reading MD: Cristobal Alejandre Measurements Intervals [place] Rate: 71 P: 31 PA: 168 QRS: -12 QRSD: 122 T: 25 QT: 434 QTc: 477 Interpretive Statements SINUS RHYTHM LEFTWARD AXIS Electronically Signed On 06-06-2018 12:31:05 CDT by Cristobal Alejandre
[2018-05-28 15:00] VITALS: BP 129/70
--- NOTE | 2018-05-28 16:25 | CONS ---
DATE OF CONSULTATION: 05/28/2018 ATTENDING PHYSICIAN: Dr. Fisher. The patient was seen at the request of Dr. Fisher for evaluation about her left knee joint injection. HISTORY OF PRESENT ILLNESS: This is an 87-year-old female, right handed, lives in an assisted living place, uses a walker, admitted on 05/27/2018 with increased forgetfulness and confusion and decreased oral intake. The patient was in the hospital in July or August of last year for about a week, had neck surgery and on that institution she was told that she had a transient amnesia. She never got to baseline, had an MRI scan, negative workup. The patient had a CT scan of the brain, which revealed atrophy and chronic small vessel ischemic disease. The patient with known dementia, known ALLERGIC TO KETOPROFEN, PROPOXYPHENE. The patient admits that she gets injection to her left knee every 3 months to help ease her arthritis pain, and she was also told that she had arthritis in her left shoulder. PHYSICAL EXAMINATION: Today revealed an elderly female. She is alert, oriented to time, place, person and circumstance, decreased acuity of hearing. The patient had generalized muscle weakness. Muscle strength overall being 4/5 to 4+/5 grade. She had equal perception of touch and pinprick sensation bilaterally. She had hand intrinsic muscle atrophy, some stiffness of her hips, knees and shoulders. She had relative weakness of shoulder girdle muscles, especially left. Deep tendon reflexes are decreased overall. She had equal perception of touch and pinprick sensation bilaterally. She is independent with bed mobility and transfers and walks slowly with antalgic gait and wide-based gait with a roller walker. She gets tired easily. Her skin is intact at this time. She had mild crepitus on range of motion of her left shoulder and knees with mild left knee joint effusion. 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 RECOMMENDATIONS: At her request, I have injected her left knee under aseptic skin technique after skin preparation using alcohol swab with 2 mL of 0.25% Marcaine solution mixed with 1 mL of Depo-Medrol 40 mg per 1 mL solution under aseptic skin technique after skin preparation using alcohol swab, and she tolerated the procedure satisfactorily without any side effects. I have instructed her in isometric strengthening exercise to her lower extremity muscle groups and physical modalities and stretching exercise to her shoulders. Agree with the plans for physical therapy and occupational therapy. She may benefit from continued therapy at nursing home care unit level. Dr. Fisher, I appreciate asking me to participate in the care of this interesting patient. I will be glad to follow her with you as needed for her rehabilitation. IJEOMA HARRISON MD DR: TOO/ale JOB#: [id number] / [id number]
[2018-05-28 19:00] VITALS: BP 117/74
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
[2018-05-28 23:00] VITALS: BP 154/84
[2018-05-29 03:00] VITALS: BP 133/77
[2018-05-29 07:00] VITALS: BP 141/80
[2018-05-29] MEDS: METOPROLOL TART IMMED RELEASE 25 MG TABLET. PO SCH ×2 (08:11→21:05)
[2018-05-29] MEDS: IMIPRAMINE 25 MG TABLET PO SCH (08:11)
[2018-05-29] MEDS: FAMOTIDINE 20 MG TABLET. PO SCH (08:12)
[2018-05-29] MEDS: CALCIUM CARB/VIT D3 500/200 TABLET. PO SCH (08:12)
[2018-05-29] MEDS: MULTIVITAMIN with MINERAL TABLET. PO SCH (08:12)
[2018-05-29] MEDS: hydroCHLOROthiazide 25 MG TABLET PO SCH (08:12)
[2018-05-29] MEDS: ASPIRIN CHEWABLE 81 MG TABLET. PO SCH (08:12)
[2018-05-29] MEDS: DICLOFENAC SODIUM 1% TOPICAL GEL 100GM TUBE. TP SCH ×2 (08:12→21:04)
[2018-05-29] MEDS: ACETAMINOPHEN/CODEINE 300/30MG TABLET. PO PRN ×2 (08:12→21:05)
[2018-05-29] MEDS: CHOLECALCIFEROL (VITAMIN D3) 1,000 UNIT TABLET PO SCH (08:12)
[2018-05-29] MEDS: LIDOCAINE (700MG/PATCH) PATCH. TD PRN (08:13)
--- NOTE | 2018-05-29 09:19 | PDOC ---
PROGRESS NOTES Chief Complaint Chief Complaint Dementia features Geriatric Encephalopathy-occasional confusion - intermittent Acute on chronic Knee pain, OA - - intermittent injections Insomnia - started on Tofranil by neuro HArd of hearing - left hearing aid History of Present Illness History of Present Illness SHe has no complaints to me She is back to her baseline She is holding the remote control close to left ear as she is hard of hearing and has a hearing aid there Neurology extensive note reviewed-trial of Tofranil She did sleep last night NO infection (UA and CXR clean with normal TSH and ESR) LEft knee better after physiatry injection wednesday Plan: mental health social worker for SNU screen Wednesday-daughter is an RN was agreeable to this Patient might need a little bit of coaxing re snu needs Will need Rx Tofranil on discharge as recommended by neurology Vitals Vitals Vital Signs Date Time Temp Pulse Resp B/P (MAP) Pulse Ox O2 Delivery O2 Flow Rate FiO2 05/29/18 08:12 Room Air 05/29/18 08:11 82 141/80 05/29/18 03:00 16 95 05/28/18 23:00 97.6 97.6 Physical Exam General: Alert, Oriented X3, Cooperative, No acute distress Heart: Regular rate, Normal S1, Normal S2 Lungs: Clear Abdomen: Normal bowel sounds, Soft, No tenderness, No hepatosplenomegaly, No masses Extremities: No clubbing, No cyanosis, No edema, Normal pulses, No tenderness/ swelling Skin: No rashes, No breakdown, No significant lesion Review of Systems Review of Systems A 14 point ROS was completed with the following noted as positive: Other systems reviewed and negative. \CONSTITUTIONAL: No fever or chills EYES: No recent changes SKIN: No rash or itching CARDIOVASCULAR: No chest pain, syncope, palpitations, or edema RESPIRATORY: No SOB or cough GASTROINTESTINAL: No nausea, vomiting or abdominal pain NEUROLOGICAL: No headaches or weakness ENDOCRINE: No cold or heat intolerance GENITOURINARY: No urgency or frequency of urination MUSCULOSKELETAL: No back pain or joint pain LYMPHATICS: No enlarged lymph nodes PSYCHIATRIC: No anxiety or depression Assessment and Plan Assessmemt and Plan Problems Medical Problems: (1) Decreased level of consciousness Status: Acute Comment Review of Relevant I have reviewed the following items timoteo (where applicable) has been applied. Labs Laboratory Tests Test 05/27/18 13:20 05/27/18 13:30 05/28/18 01:11 05/28/18 05:57 White Blood Count 5.9 x10^3/uL (4.0-11.0) 5.6 x10^3/uL (4.0-11.0) Red Blood Count 4.59 x10^6/uL (3.50-5.40) 4.17 x10^6/uL (3.50-5.40) Hemoglobin 13.9 g/dL (12.0-15.5) 13.0 g/dL (12.0-15.5) Hematocrit 41.9 % (36.0-47.0) 37.7 % (36.0-47.0) Mean Corpuscular Volume 91 fL (79-100) 91 fL (79-100) Mean Corpuscular Hemoglobin 30 pg (25-35) 31 pg (25-35) Mean Corpuscular Hemoglobin Concent 33 g/dL (31-37) 34 g/dL (31-37) Red Cell Distribution Width 13.4 % (11.5-14.5) 13.5 % (11.5-14.5) Platelet Count 298 x10^3/uL (140-400) 267 x10^3/uL (140-400) Neutrophils (%) (Auto) 39 % (31-73) 34 % (31-73) Lymphocytes (%) (Auto) 51 % (24-48) 55 % (24-48) Monocytes (%) (Auto) 8 % (0-9) 9 % (0-9) Eosinophils (%) (Auto) 1 % (0-3) 1 % (0-3) Basophils (%) (Auto) 1 % (0-3) 1 % (0-3) Neutrophils # (Auto) 2.3 x10^3uL (1.8-7.7) 1.9 x10^3uL (1.8-7.7) Lymphocytes # (Auto) 3.0 x10^3/uL (1.0-4.8) 3.1 x10^3/uL (1.0-4.8) Monocytes # (Auto) 0.5 x10^3/uL (0.0-1.1) 0.5 x10^3/uL (0.0-1.1) Eosinophils # (Auto) 0.0 x10^3/uL (0.0-0.7) 0.0 x10^3/uL (0.0-0.7) Basophils # (Auto) 0.1 x10^3/uL (0.0-0.2) 0.0 x10^3/uL (0.0-0.2) Erythrocyte Sedimentation Rate 15 (0-25) Prothrombin Time 13.6 SEC (11.7-14.0) Prothromb Time International Ratio 1.1 (0.8-1.1) Activated Partial Thromboplast Time 31 SEC (24-38) Sodium Level 137 mmol/L (136-145) 138 mmol/L (136-145) Potassium Level 3.7 mmol/L (3.5-5.1) 3.2 mmol/L (3.5-5.1) Chloride Level 98 mmol/L (98-107) 101 mmol/L (98-107) Carbon Dioxide Level 28 mmol/L (21-32) 23 mmol/L (21-32) Anion Gap 11 (6-14) 14 (6-14) Blood Urea Nitrogen 19 mg/dL (7-20) 18 mg/dL (7-20) Creatinine 0.7 mg/dL (0.6-1.0) 0.7 mg/dL (0.6-1.0) Estimated GFR (Cockcroft-Gault) 79.0 79.0 Glucose Level 111 mg/dL (70-99) 99 mg/dL (70-99) Calcium Level 9.6 mg/dL (8.5-10.1) 8.9 mg/dL (8.5-10.1) Total Bilirubin 0.4 mg/dL (0.2-1.0) Direct Bilirubin 0.1 mg/dL (0.0-0.2) Aspartate Amino Transf (AST/SGOT) 31 U/L (15-37) Alanine Aminotransferase (ALT/SGPT) 28 U/L (14-59) Alkaline Phosphatase 81 U/L (46-116) Troponin I Quantitative < 0.017 ng/mL (0.000-0.055) Total Protein 7.1 g/dL (6.4-8.2) Albumin 4.0 g/dL (3.4-5.0) Lipase 118 U/L (73-393) Vitamin B12 Level 820 pg/mL (247-911) Thyroid Stimulating Hormone (TSH) 3.292 uIU/mL (0.358-3.74) Urine Collection Type U cath Urine Color Yellow Urine Clarity Clear Urine pH 6.0 Urine Specific [place] 1.015 Urine Protein Negative mg/dL (NEG-TRACE) Urine Glucose (UA) Negative mg/dL (NEG) Urine Ketones (Stick) Negative mg/dL (NEG) Urine Blood Negative (NEG) Urine Nitrite Negative (NEG) Urine Bilirubin Negative (NEG) Urine Urobilinogen Dipstick 1.0 mg/dL (0.2 mg/dL) Urine Leukocyte Esterase Negative (NEG) Urine RBC 3-5 /HPF (0-2) Urine WBC 0 /HPF (0-4) Urine Renal Epithelial Cells Occ /LPF Urine Bacteria 0 /HPF (0-FEW) Urine Mucus Mod /LPF Nasal Screen MRSA (PCR) Negative (Negative) Medications Current Medications Ondansetron HCl (Zofran) 4 mg PRN Q8HRS PRN IV NAUSEA/VOMITING; Start 05/27/18 at 14:45; Stop 05/27/18 at 15:13; Status DC Sodium Chloride 1,000 ml @ 70 mls/hr [id number] IV Last administered on at 14:33; Start 05/27/18 at 14:33; Stop 05/27/18 at 18:32; Status DC Ondansetron HCl (Zofran) 4 mg PRN Q6HRS PRN IV NAUSEA/VOMITING; Start 05/27/18 at 15:15 Acetaminophen (Tylenol) 500 mg PRN Q6HRS PRN PO MILD PAIN / TEMP; Start at 15:15; Status Cancel Acetaminophen/ Codeine Phosphate (Tylenol #3) 1 tab PRN Q6HRS PRN PO MODERATE PAIN Last administered on 05/29/18at 08:12; Start 05/27/18 at 15:15 Lidocaine (Lidoderm) 1 patch PRN DAILY PRN TD TOPICAL PAIN Last administered on 05/29/18at 08:13; Start 05/27/18 at 15:15 Potassium Chloride (Klor-Con) 40 meq 1X ONCE PO Last administered on at 11:17; Start 05/28/18 at 08:45; Stop 05/28/18 at 08:46; Status DC Acetaminophen (Tylenol) 650 mg PRN Q4HRS PRN PO MILD PAIN; Start 05/28/18 at 10 :15 Aspirin (Children'S Aspirin) 81 mg DAILY PO Last administered on 05/29/18at 08: 12; Start 05/28/18 at 11:00 Bisacodyl (Dulcolax Tab) 10 mg PRN DAILY PRN PO CONSTIPATION (2nd Choice); Start 05/28/18 at 10:15 Vitamin D (Vitamin D3) 3,000 unit DAILY PO Last administered on 05/29/18 08:12 ; Start 05/28/18 at 11:00 Fluticasone Propionate (Flonase) 2 spray PRN DAILY PRN NS ALLERGIES; Start at 10:15 Hydrochlorothiazide (Hydrodiuril) 25 mg DAILY PO Last administered on at 08:12; Start 05/28/18 at 11:00 Metoprolol Tartrate (Lopressor) 25 mg BID PO Last administered on 05/29/18at 08: 11; Start 05/28/18 at 11:00 Senna/Docusate Sodium (Senna Plus) 1 tab PRN DAILY PRN PO CONSTIPATION (1st Choice); Start 05/28/18 at 10:15 Non-Formulary Medication (Alendronate Sodium ) 1 tab WEEKLY PO ; Start 06/04/18 at 09:00; Status UNV Calcium/Vitamin D (Oscal D 500mg/ 200uts) 1 tab [id number] PO Last administered on 05/29/18at 08:12; Start 05/28/18 at 12:00 Imipramine HCl (Tofranil) 12.5 mg DAILY PO Last administered on 05/29/18 08:11 ; Start 05/28/18 at 11:00 Cetirizine HCl (ZyrTEC) 10 mg PRN DAILY PRN PO ALLERGY SYMPTOMS; Start at 10:34 Multi-Ingredient Ointment (Analgesic [place]) 1 jose QID TP ; Start 05/28/18 at 12: 00; Stop 05/28/18 at 12:00; Status DC Multivitamins (Thera M Plus) 1 tab DAILY PO Last administered on 05/29/18at 08: 12; Start 05/28/18 at 11:00 Famotidine (Pepcid) 20 mg DAILY PO Last administered on 05/29/18at 08:12; Start 05/28/18 at 11:00 Methylprednisolone Acetate (DEPO-Medrol 40MG VIAL) 40 mg 1X ONCE IM ; Start at 10:45; Stop 05/28/18 at 10:53; Status DC Bupivacaine HCl (Sensorcaine-Mpf 0.25%) 10 ml 1X ONCE IJ ; Start 05/28/18 at 10 :45; Stop 05/28/18 at 10:53; Status DC Diclofenac Sodium (Voltaren) 1 jose BID TP Last administered on 05/29/18at 08:12 ; Start 05/28/18 at 11:00 Active Scripts Active Reported Senna Plus Tablet (Sennosides/Docusate Sodium) 1 Each Tablet 1 Each PO DAILY PRN Fluticasone Propionate Nasal [place] (Fluticasone Propionate) 16 Gm [place].susp 2 [place] NS DAILY PRN MDD daily Loratadine 10 Mg Tablet 1 Tab PO DAILY PRN MDD daily Dulcolax (Bisacodyl) 5 Mg Tablet.dr 10 Mg PO PRN DAILY PRN Biofreeze (Menthol) 118 Ml Gel..ml. 118 Ml TP Q2HR W/A Tylenol (Acetaminophen) 325 Mg Tablet 2 Tab PO PRN Q4HRS PRN Vitamin D3 (Cholecalciferol (Vitamin D3)) 1,000 Unit Tablet 3 Tab PO DAILY Thera-Tabs M [place] (Multivits,Ca,Minerals/Iron/Fa) 1 Each Tablet 1 Each PO DAILY Ranitidine Hcl 150 Mg Tablet 150 Mg PO DAILY Metoprolol Tartrate 25 Mg Tablet 1 Tab PO BID Imipramine Hcl 10 Mg Tablet 10 Mg PO DAILY Hydrochlorothiazide Tablet (Hydrochlorothiazide) 25 Mg Tablet 25 Mg PO DAILY Calcium 600 + Vit D 200 Tablet (Calcium Carbonate/Vitamin D3) 1 Each Tablet 1 Each PO DAILY Aspirin 81 Mg Tab.chew 1 Tab PO DAILY Alendronate Sodium 70 Mg Tablet 1 Tab PO WEEKLY Vitals/I & O Vital Sign - Last 24 Hours 05/28/18 05/28/18 05/28/18 05/28/18 11:00 11:17 14:24 15:00 Temp 97.6 97.5 97.6 97.5 Pulse 84 102 77 Resp 14 14 B/P (MAP) 125/63 (83) 137/72 129/70 (89) Pulse Ox 97 96 O2 Delivery Room Air Room Air Room Air 05/28/18 05/28/18 05/28/18 05/28/18 19:00 19:35 20:35 20:35 Temp 97.6 97.6 Pulse 77 77 Resp 14 18 B/P (MAP) 117/74 (88) 117/74 Pulse Ox 98 98 O2 Delivery Room Air Room Air Room Air 05/28/18 05/28/18 05/29/18 05/29/18 21:35 23:00 03:00 08:11 Temp 97.6 97.6 Pulse 85 87 82 Resp 18 18 16 B/P (MAP) 154/84 (107) 133/77 (95) 141/80 Pulse Ox 98 99 95 O2 Delivery Room Air Room Air Room Air 05/29/18 08:12 O2 Delivery Room Air Intake and Output 05/28/18 05/28/18 05/29/18 14:59 22:59 06:59 Intake Total 360 ml 240 ml Balance 360 ml 240 ml MIRA NAIR MD May 29, 2018 09:19
[2018-05-29 11:00] VITALS: BP 125/70
[2018-05-29 15:00] VITALS: BP 128/65
[2018-05-29 19:00] VITALS: BP 127/71
[2018-05-29 23:06] VITALS: BP 134/69
[2018-05-30 03:09] VITALS: BP 131/69
[2018-05-30 07:30] VITALS: BP 176/65
[2018-05-30] MEDS: hydroCHLOROthiazide 25 MG TABLET PO SCH (08:39)
[2018-05-30] MEDS: CHOLECALCIFEROL (VITAMIN D3) 1,000 UNIT TABLET PO SCH (08:39)
[2018-05-30] MEDS: IMIPRAMINE 25 MG TABLET PO SCH (08:39)
[2018-05-30] MEDS: FAMOTIDINE 20 MG TABLET. PO SCH (08:39)
[2018-05-30] MEDS: CALCIUM CARB/VIT D3 500/200 TABLET. PO SCH (08:39)
[2018-05-30] MEDS: MULTIVITAMIN with MINERAL TABLET. PO SCH (08:40)
[2018-05-30] MEDS: ASPIRIN CHEWABLE 81 MG TABLET. PO SCH (08:40)
[2018-05-30] MEDS: DICLOFENAC SODIUM 1% TOPICAL GEL 100GM TUBE. TP SCH (08:40)
[2018-05-30] MEDS: METOPROLOL TART IMMED RELEASE 25 MG TABLET. PO SCH (08:40)
[2018-05-30] MEDS: LIDOCAINE (700MG/PATCH) PATCH. TD PRN (08:40)
--- NOTE | 2018-05-30 10:07 | PDOC ---
PROGRESS NOTES Subjective Subjective No new complaints. Objective Objective Vital Signs Date Time Temp Pulse Resp B/P (MAP) Pulse Ox O2 Delivery O2 Flow Rate FiO2 05/30/18 08:40 82 176/65 05/30/18 07:30 97.6 16 96 Room Air 97.6 Intake and Output 05/30/18 06:59 Intake Total 440 ml Output Total 200 ml Balance 240 ml Intake Oral 440 ml Output Urine Total 200 ml # Voids 2 Physical Exam Physical Exam She is alert,supine in bed and comfortable and she admits some easing of left knee joint pain after steroid injection. She continues to require assitance for mobility and self care. Assessment Assessment Problems Medical Problems: (1) Decreased level of consciousness Status: Acute Plan Plan of Care Agree with plans for SNF transfer when medically stable. Comment Review of Relevant I have reviewed the following items timoteo (where applicable) has been applied. Medications Current Medications Ondansetron HCl (Zofran) 4 mg PRN Q8HRS PRN IV NAUSEA/VOMITING; Start 05/27/18 at 14:45; Stop 05/27/18 at 15:13; Status DC Sodium Chloride 1,000 ml @ 70 mls/hr [id number] IV Last administered on at 14:33; Start 05/27/18 at 14:33; Stop 05/27/18 at 18:32; Status DC Ondansetron HCl (Zofran) 4 mg PRN Q6HRS PRN IV NAUSEA/VOMITING; Start 05/27/18 at 15:15 Acetaminophen (Tylenol) 500 mg PRN Q6HRS PRN PO MILD PAIN / TEMP; Start at 15:15; Status Cancel Acetaminophen/ Codeine Phosphate (Tylenol #3) 1 tab PRN Q6HRS PRN PO MODERATE PAIN Last administered on 05/29/18at 21:05; Start 05/27/18 at 15:15 Lidocaine (Lidoderm) 1 patch PRN DAILY PRN TD TOPICAL PAIN Last administered on 05/30/18at 08:40; Start 05/27/18 at 15:15 Potassium Chloride (Klor-Con) 40 meq 1X ONCE PO Last administered on at 11:17; Start 05/28/18 at 08:45; Stop 05/28/18 at 08:46; Status DC Acetaminophen (Tylenol) 650 mg PRN Q4HRS PRN PO MILD PAIN; Start 05/28/18 at 10 :15 Aspirin (Children'S Aspirin) 81 mg DAILY PO Last administered on 05/30/18 08: 40; Start 05/28/18 at 11:00 Bisacodyl (Dulcolax Tab) 10 mg PRN DAILY PRN PO CONSTIPATION (2nd Choice); Start 05/28/18 at 10:15 Vitamin D (Vitamin D3) 3,000 unit DAILY PO Last administered on 05/30/18 08:39 ; Start 05/28/18 at 11:00 Fluticasone Propionate (Flonase) 2 spray PRN DAILY PRN NS ALLERGIES; Start at 10:15 Hydrochlorothiazide (Hydrodiuril) 25 mg DAILY PO Last administered on 08:39; Start 05/28/18 at 11:00 Metoprolol Tartrate (Lopressor) 25 mg BID PO Last administered on 05/30/18 08: 40; Start 05/28/18 at 11:00 Senna/Docusate Sodium (Senna Plus) 1 tab PRN DAILY PRN PO CONSTIPATION (1st Choice); Start 05/28/18 at 10:15 Non-Formulary Medication (Alendronate Sodium ) 1 tab WEEKLY PO ; Start 06/04/18 at 09:00; Status UNV Calcium/Vitamin D (Oscal D 500mg/ 200uts) 1 tab DAILYWBKFT PO Last administered on 05/30/18at 08:39; Start 05/28/18 at 12:00 Imipramine HCl (Tofranil) 12.5 mg DAILY PO Last administered on 05/30/18at 08:39 ; Start 05/28/18 at 11:00 Cetirizine HCl (ZyrTEC) 10 mg PRN DAILY PRN PO ALLERGY SYMPTOMS; Start at 10:34 Multi-Ingredient Ointment (Analgesic [place]) 1 jose QID TP ; Start 05/28/18 at 12: 00; Stop 05/28/18 at 12:00; Status DC Multivitamins (Thera M Plus) 1 tab DAILY PO Last administered on 05/30/18 08: 40; Start 05/28/18 at 11:00 Famotidine (Pepcid) 20 mg DAILY PO Last administered on 05/30/18at 08:39; Start 05/28/18 at 11:00 Methylprednisolone Acetate (DEPO-Medrol 40MG VIAL) 40 mg 1X ONCE IM ; Start at 10:45; Stop 05/28/18 at 10:53; Status DC Bupivacaine HCl (Sensorcaine-Mpf 0.25%) 10 ml 1X ONCE IJ ; Start 05/28/18 at 10 :45; Stop 05/28/18 at 10:53; Status DC Diclofenac Sodium (Voltaren) 1 jose BID TP Last administered on 05/30/18at 08:40 ; Start 05/28/18 at 11:00 Active Scripts Active Reported Senna Plus Tablet (Sennosides/Docusate Sodium) 1 Each Tablet 1 Each PO DAILY PRN Fluticasone Propionate Nasal [place] (Fluticasone Propionate) 16 Gm [place].susp 2 [place] NS DAILY PRN MDD daily Loratadine 10 Mg Tablet 1 Tab PO DAILY PRN MDD daily Dulcolax (Bisacodyl) 5 Mg Tablet.dr 10 Mg PO PRN DAILY PRN Biofreeze (Menthol) 118 Ml Gel..ml. 118 Ml TP Q2HR W/A Tylenol (Acetaminophen) 325 Mg Tablet 2 Tab PO PRN Q4HRS PRN Vitamin D3 (Cholecalciferol (Vitamin D3)) 1,000 Unit Tablet 3 Tab PO DAILY Thera-Tabs M Caplet (Multivits,Ca,Minerals/Iron/Fa) 1 Each Tablet 1 Each PO DAILY Ranitidine Hcl 150 Mg Tablet 150 Mg PO DAILY Metoprolol Tartrate 25 Mg Tablet 1 Tab PO BID Imipramine Hcl 10 Mg Tablet 10 Mg PO DAILY Hydrochlorothiazide Tablet (Hydrochlorothiazide) 25 Mg Tablet 25 Mg PO DAILY Calcium 600 + Vit D 200 Tablet (Calcium Carbonate/Vitamin D3) 1 Each Tablet 1 Each PO DAILY Aspirin 81 Mg Tab.chew 1 Tab PO DAILY Alendronate Sodium 70 Mg Tablet 1 Tab PO WEEKLY Vitals/I & O Vital Sign - Last 24 Hours 05/29/18 05/29/18 05/29/18 05/29/18 11:00 15:00 19:00 19:41 Temp 97.5 97.6 97.5 97.5 97.6 97.5 Pulse 78 71 76 Resp 17 17 20 B/P (MAP) 125/70 (88) 128/65 (86) 127/71 (89) Pulse Ox 97 97 94 O2 Delivery Room Air Room Air Room Air Room Air 05/29/18 05/29/18 05/29/18 05/29/18 21:05 21:05 22:05 23:06 Temp 98.3 98.3 Pulse 76 75 Resp 18 18 20 B/P (MAP) 127/71 134/69 (90) Pulse Ox 94 94 95 O2 Delivery Room Air Room Air Room Air 05/30/18 05/30/18 05/30/18 05/30/18 03:09 07:15 07:30 08:40 Temp 97.5 97.6 97.5 97.6 Pulse 79 82 82 Resp 20 16 B/P (MAP) 131/69 (89) 176/65 (102) 176/65 Pulse Ox 95 96 O2 Delivery Room Air Room Air Room Air Intake and Output 05/29/18 05/29/18 05/30/18 14:59 22:59 06:59 Intake Total 240 ml 200 ml Output Total 200 ml Balance 240 ml 200 ml -200 ml IJEOMA HARRISON MD May 30, 2018 10:07
[2018-05-30] MEDS ORDERED: traMADol 50 MG TABLET PO PRN (10:30)
--- NOTE | 2018-05-30 10:55 | NUR ---
KANDICE consulted for SNU evaluation. Chart reviewed and DW RN. Pt lives at [facility] and PT/OT recommends SNU. Spoke with pt and pt's daughter, Joelle in room regarding PT/OT recommendation for SNU, options and insurance coverage. Pt and daughter requested KANDICE to speak with pt's son/DPOA Crispin Bobo, phone [phone] regarding SNU options. KANDICE left a voice mail to son requesting a call back. Attempted to call son on [phone] as well but phone does not work. Will continue to follow. Addendum: 05/30/18 at 1111 by NICKOLAS WOODSON Spoke with pt's sonCrispin, phone: [phone] regarding SNU options and Medicare ratings. He reported he will look in to the SNU facilities and notify KANDICE with a placement option. Will continue to follow.
[2018-05-30 11:00] VITALS: BP 134/67
--- NOTE | 2018-05-30 11:45 | PDOC ---
PROGRESS NOTES Chief Complaint Chief Complaint Dementia features Geriatric Encephalopathy-occasional confusion - intermittent Acute on chronic Knee pain, OA - - intermittent injections Insomnia - changed to tramadol per neuro. hold imipramine given ach side effects HArd of hearing - left hearing aid History of Present Illness History of Present Illness no complaints and back to her baseline patient hard of hearing Neurology extensive note reviewed NO infection (UA and CXR clean with normal TSH and ESR) LEft knee better after physiatry injection wednesday Plan: case management social worker for SNU patient agreeable to SNU Vitals Vitals Vital Signs Date Time Temp Pulse Resp B/P (MAP) Pulse Ox O2 Delivery O2 Flow Rate FiO2 05/30/18 08:40 82 176/65 05/30/18 07:30 97.6 16 96 Room Air 97.6 Physical Exam General: Alert, Oriented X3, Cooperative, No acute distress Heart: Regular rate, Normal S1, Normal S2 Lungs: Clear Abdomen: Normal bowel sounds, Soft, No tenderness, No hepatosplenomegaly, No masses Extremities: No clubbing, No cyanosis, No edema, Normal pulses, No tenderness/ swelling Skin: No rashes, No breakdown, No significant lesion Assessment and Plan Assessmemt and Plan Problems Medical Problems: (1) Decreased level of consciousness Status: Acute Comment Review of Relevant I have reviewed the following items timoteo (where applicable) has been applied. Medications Current Medications Ondansetron HCl (Zofran) 4 mg PRN Q8HRS PRN IV NAUSEA/VOMITING; Start 05/27/18 at 14:45; Stop 05/27/18 at 15:13; Status DC Sodium Chloride 1,000 ml @ 70 mls/hr [id number] IV Last administered on at 14:33; Start 05/27/18 at 14:33; Stop 05/27/18 at 18:32; Status DC Ondansetron HCl (Zofran) 4 mg PRN Q6HRS PRN IV NAUSEA/VOMITING; Start 05/27/18 at 15:15 Acetaminophen (Tylenol) 500 mg PRN Q6HRS PRN PO MILD PAIN / TEMP; Start at 15:15; Status Cancel Acetaminophen/ Codeine Phosphate (Tylenol #3) 1 tab PRN Q6HRS PRN PO MODERATE PAIN Last administered on 05/29/18at 21:05; Start 05/27/18 at 15:15 Lidocaine (Lidoderm) 1 patch PRN DAILY PRN TD TOPICAL PAIN Last administered on 05/30/18 08:40; Start 05/27/18 at 15:15 Potassium Chloride (Klor-Con) 40 meq 1X ONCE PO Last administered on 11:17; Start 05/28/18 at 08:45; Stop 05/28/18 at 08:46; Status DC Acetaminophen (Tylenol) 650 mg PRN Q4HRS PRN PO MILD PAIN; Start 05/28/18 at 10 :15 Aspirin (Children'S Aspirin) 81 mg DAILY PO Last administered on 05/30/18 08: 40; Start 05/28/18 at 11:00 Bisacodyl (Dulcolax Tab) 10 mg PRN DAILY PRN PO CONSTIPATION (2nd Choice); Start 05/28/18 at 10:15 Vitamin D (Vitamin D3) 3,000 unit DAILY PO Last administered on 05/30/18 08:39 ; Start 05/28/18 at 11:00 Fluticasone Propionate (Flonase) 2 spray PRN DAILY PRN NS ALLERGIES; Start at 10:15 Hydrochlorothiazide (Hydrodiuril) 25 mg DAILY PO Last administered on 08:39; Start 05/28/18 at 11:00 Metoprolol Tartrate (Lopressor) 25 mg BID PO Last administered on 05/30/18 08: 40; Start 05/28/18 at 11:00 Senna/Docusate Sodium (Senna Plus) 1 tab PRN DAILY PRN PO CONSTIPATION (1st Choice); Start 05/28/18 at 10:15 Non-Formulary Medication (Alendronate Sodium ) 1 tab WEEKLY PO ; Start 06/04/18 at 09:00; Status UNV Calcium/Vitamin D (Oscal D 500mg/ 200uts) 1 tab DAILYWBKFT PO Last administered on 05/30/18 08:39; Start 05/28/18 at 12:00 Imipramine HCl (Tofranil) 12.5 mg DAILY PO Last administered on 05/30/18 08:39 ; Start 05/28/18 at 11:00; Stop 05/30/18 at 10:24; Status DC Cetirizine HCl (ZyrTEC) 10 mg PRN DAILY PRN PO ALLERGY SYMPTOMS; Start at 10:34 Multi-Ingredient Ointment (Analgesic [place]) 1 jose QID TP ; Start 05/28/18 at 12: 00; Stop 05/28/18 at 12:00; Status DC Multivitamins (Thera M Plus) 1 tab DAILY PO Last administered on 05/30/18at 08: 40; Start 05/28/18 at 11:00 Famotidine (Pepcid) 20 mg DAILY PO Last administered on 05/30/18at 08:39; Start 05/28/18 at 11:00 Methylprednisolone Acetate (DEPO-Medrol 40MG VIAL) 40 mg 1X ONCE IM Last administered on 05/28/18at 10:45; Start 05/28/18 at 10:45; Stop 05/28/18 at 10:53 ; Status DC Bupivacaine HCl (Sensorcaine-Mpf 0.25%) 10 ml 1X ONCE IJ Last administered on 05/28/18at 10:45; Start 05/28/18 at 10:45; Stop 05/28/18 at 10:53; Status DC Diclofenac Sodium (Voltaren) 1 jose BID TP Last administered on 05/30/18at 08:40 ; Start 05/28/18 at 11:00 Tramadol HCl (Ultram) 25 mg PRN QHS PRN PO pain/ sleep; Start 05/30/18 at 10:30 Active Scripts Active Reported Senna Plus Tablet (Sennosides/Docusate Sodium) 1 Each Tablet 1 Each PO DAILY PRN Fluticasone Propionate Nasal [place] (Fluticasone Propionate) 16 Gm [place].susp 2 [place] NS DAILY PRN MDD daily Loratadine 10 Mg Tablet 1 Tab PO DAILY PRN MDD daily Dulcolax (Bisacodyl) 5 Mg Tablet.dr 10 Mg PO PRN DAILY PRN Biofreeze (Menthol) 118 Ml Gel..ml. 118 Ml TP Q2HR W/A Tylenol (Acetaminophen) 325 Mg Tablet 2 Tab PO PRN Q4HRS PRN Vitamin D3 (Cholecalciferol (Vitamin D3)) 1,000 Unit Tablet 3 Tab PO DAILY Thera-Tabs M Caplet (Multivits,Ca,Minerals/Iron/Fa) 1 Each Tablet 1 Each PO DAILY Ranitidine Hcl 150 Mg Tablet 150 Mg PO DAILY Metoprolol Tartrate 25 Mg Tablet 1 Tab PO BID Imipramine Hcl 10 Mg Tablet 10 Mg PO DAILY Hydrochlorothiazide Tablet (Hydrochlorothiazide) 25 Mg Tablet 25 Mg PO DAILY Calcium 600 + Vit D 200 Tablet (Calcium Carbonate/Vitamin D3) 1 Each Tablet 1 Each PO DAILY Aspirin 81 Mg Tab.chew 1 Tab PO DAILY Alendronate Sodium 70 Mg Tablet 1 Tab PO WEEKLY Vitals/I & O Vital Sign - Last 24 Hours 05/29/18 05/29/18 05/29/18 05/29/18 15:00 19:00 19:41 21:05 Temp 97.6 97.5 97.6 97.5 Pulse 71 76 Resp 17 20 18 B/P (MAP) 128/65 (86) 127/71 (89) Pulse Ox 97 94 94 O2 Delivery Room Air Room Air Room Air Room Air 05/29/18 05/29/18 05/29/18 05/30/18 21:05 22:05 23:06 03:09 Temp 98.3 97.5 98.3 97.5 Pulse 76 75 79 Resp 18 20 20 B/P (MAP) 127/71 134/69 (90) 131/69 (89) Pulse Ox 94 95 95 O2 Delivery Room Air Room Air Room Air 05/30/18 05/30/18 05/30/18 07:15 07:30 08:40 Temp 97.6 97.6 Pulse 82 82 Resp 16 B/P (MAP) 176/65 (102) 176/65 Pulse Ox 96 O2 Delivery Room Air Room Air Intake and Output 05/29/18 05/29/18 05/30/18 15:00 23:00 07:00 Intake Total 240 ml 200 ml Output Total 200 ml Balance 240 ml 200 ml -200 ml JEFFERSON TAVERAS MD May 30, 2018 11:45
--- NOTE | 2018-05-30 12:01 | PDOC ---
PROGRESS NOTES Assessment Problems Medical Problems: (1) Decreased level of consciousness Status: Acute Episode of unresponsiveness yesterday, patient with dementia, differential diagnosis includes seizure, hypotension, other metabolic derangement, no evidence that she had a stroke or transient ischemic attack Plan Awake EEG okay to transfer back to group home Hold on starting anticonvulsant Subjective No complaints Objective Vital Signs Date Time Temp Pulse Resp B/P (MAP) Pulse Ox O2 Delivery O2 Flow Rate FiO2 05/30/18 08:40 82 176/65 05/30/18 07:30 97.6 16 96 Room Air 97.6 Intake and Output 05/30/18 07:00 Intake Total 440 ml Output Total 200 ml Balance 240 ml Intake Oral 440 ml Output Urine Total 200 ml # Voids 2 Review of Relevant I have reviewed the following items timoteo (where applicable) has been applied. Medications Current Medications Ondansetron HCl (Zofran) 4 mg PRN Q8HRS PRN IV NAUSEA/VOMITING; Start 05/27/18 at 14:45; Stop 05/27/18 at 15:13; Status DC Sodium Chloride 1,000 ml @ 70 mls/hr [id number] IV Last administered on at 14:33; Start 05/27/18 at 14:33; Stop 05/27/18 at 18:32; Status DC Ondansetron HCl (Zofran) 4 mg PRN Q6HRS PRN IV NAUSEA/VOMITING; Start 05/27/18 at 15:15 Acetaminophen (Tylenol) 500 mg PRN Q6HRS PRN PO MILD PAIN / TEMP; Start at 15:15; Status Cancel Acetaminophen/ Codeine Phosphate (Tylenol #3) 1 tab PRN Q6HRS PRN PO MODERATE PAIN Last administered on 05/29/18at 21:05; Start 05/27/18 at 15:15 Lidocaine (Lidoderm) 1 patch PRN DAILY PRN TD TOPICAL PAIN Last administered on 05/30/18at 08:40; Start 05/27/18 at 15:15 Potassium Chloride (Klor-Con) 40 meq 1X ONCE PO Last administered on at 11:17; Start 05/28/18 at 08:45; Stop 05/28/18 at 08:46; Status DC Acetaminophen (Tylenol) 650 mg PRN Q4HRS PRN PO MILD PAIN; Start 05/28/18 at 10 :15 Aspirin (Children'S Aspirin) 81 mg DAILY PO Last administered on 05/30/18 08: 40; Start 05/28/18 at 11:00 Bisacodyl (Dulcolax Tab) 10 mg PRN DAILY PRN PO CONSTIPATION (2nd Choice); Start 05/28/18 at 10:15 Vitamin D (Vitamin D3) 3,000 unit DAILY PO Last administered on 05/30/18at 08:39 ; Start 05/28/18 at 11:00 Fluticasone Propionate (Flonase) 2 spray PRN DAILY PRN NS ALLERGIES; Start at 10:15 Hydrochlorothiazide (Hydrodiuril) 25 mg DAILY PO Last administered on 08:39; Start 05/28/18 at 11:00 Metoprolol Tartrate (Lopressor) 25 mg BID PO Last administered on 05/30/18at 08: 40; Start 05/28/18 at 11:00 Senna/Docusate Sodium (Senna Plus) 1 tab PRN DAILY PRN PO CONSTIPATION (1st Choice); Start 05/28/18 at 10:15 Non-Formulary Medication (Alendronate Sodium ) 1 tab WEEKLY PO ; Start 06/04/18 at 09:00; Status UNV Calcium/Vitamin D (Oscal D 500mg/ 200uts) 1 tab DAILYWBKFT PO Last administered on 05/30/18at 08:39; Start 05/28/18 at 12:00 Imipramine HCl (Tofranil) 12.5 mg DAILY PO Last administered on 05/30/18at 08:39 ; Start 05/28/18 at 11:00; Stop 05/30/18 at 10:24; Status DC Cetirizine HCl (ZyrTEC) 10 mg PRN DAILY PRN PO ALLERGY SYMPTOMS; Start at 10:34 Multi-Ingredient Ointment (Analgesic [place]) 1 jose QID TP ; Start 05/28/18 at 12: 00; Stop 05/28/18 at 12:00; Status DC Multivitamins (Thera M Plus) 1 tab DAILY PO Last administered on 05/30/18at 08: 40; Start 05/28/18 at 11:00 Famotidine (Pepcid) 20 mg DAILY PO Last administered on 05/30/18at 08:39; Start 05/28/18 at 11:00 Methylprednisolone Acetate (DEPO-Medrol 40MG VIAL) 40 mg 1X ONCE IM Last administered on 05/28/18at 10:45; Start 05/28/18 at 10:45; Stop 05/28/18 at 10:53 ; Status DC Bupivacaine HCl (Sensorcaine-Mpf 0.25%) 10 ml 1X ONCE IJ Last administered on 05/28/18at 10:45; Start 05/28/18 at 10:45; Stop 05/28/18 at 10:53; Status DC Diclofenac Sodium (Voltaren) 1 jose BID TP Last administered on 05/30/18at 08:40 ; Start 05/28/18 at 11:00 Tramadol HCl (Ultram) 25 mg PRN QHS PRN PO pain/ sleep; Start 05/30/18 at 10:30 Active Scripts Active Reported Senna Plus Tablet (Sennosides/Docusate Sodium) 1 Each Tablet 1 Each PO DAILY PRN Fluticasone Propionate Nasal [place] (Fluticasone Propionate) 16 Gm [place].susp 2 [place] NS DAILY PRN MDD daily Loratadine 10 Mg Tablet 1 Tab PO DAILY PRN MDD daily Dulcolax (Bisacodyl) 5 Mg Tablet.dr 10 Mg PO PRN DAILY PRN Biofreeze (Menthol) 118 Ml Gel..ml. 118 Ml TP Q2HR W/A Tylenol (Acetaminophen) 325 Mg Tablet 2 Tab PO PRN Q4HRS PRN Vitamin D3 (Cholecalciferol (Vitamin D3)) 1,000 Unit Tablet 3 Tab PO DAILY Thera-Tabs M Caplet (Multivits,Ca,Minerals/Iron/Fa) 1 Each Tablet 1 Each PO DAILY Ranitidine Hcl 150 Mg Tablet 150 Mg PO DAILY Metoprolol Tartrate 25 Mg Tablet 1 Tab PO BID Imipramine Hcl 10 Mg Tablet 10 Mg PO DAILY Hydrochlorothiazide Tablet (Hydrochlorothiazide) 25 Mg Tablet 25 Mg PO DAILY Calcium 600 + Vit D 200 Tablet (Calcium Carbonate/Vitamin D3) 1 Each Tablet 1 Each PO DAILY Aspirin 81 Mg Tab.chew 1 Tab PO DAILY Alendronate Sodium 70 Mg Tablet 1 Tab PO WEEKLY Vitals/I & O Vital Sign - Last 24 Hours 05/29/18 05/29/18 05/29/1805/29/19 15:00 19:00 19:41 21:05 Temp 97.6 97.5 97.6 97.5 Pulse 71 76 Resp 17 20 18 B/P (MAP) 128/65 (86) 127/71 (89) Pulse Ox 97 94 94 O2 Delivery Room Air Room Air Room Air Room Air 05/29/18 05/29/18 05/29/18 05/30/18 21:05 22:05 23:06 03:09 Temp 98.3 97.5 98.3 97.5 Pulse 76 75 79 Resp 18 20 20 B/P (MAP) 127/71 134/69 (90) 131/69 (89) Pulse Ox 94 95 95 O2 Delivery Room Air Room Air Room Air 05/30/18 05/30/18 05/30/18 07:15 07:30 08:40 Temp 97.6 97.6 Pulse 82 82 Resp 16 B/P (MAP) 176/65 (102) 176/65 Pulse Ox 96 O2 Delivery Room Air Room Air Intake and Output 05/29/18 05/29/18 05/30/18 15:00 23:00 07:00 Intake Total 240 ml 200 ml Output Total 200 ml Balance 240 ml 200 ml -[address] head without contrast 05/27/2018 1:41 PM INDICATION: Confusion COMPARISON: None available TECHNIQUE: Multiple axial CT images of the head were obtained from skull base through the vertex without intravenous contrast. FINDINGS: Head: Ventricles, sulci and basal cisterns are prominent compatible with mild generalized cerebral volume loss. . Low-attenuation in the periventricular white matter is suggestive of chronic small vessel ischemic changes. There is no hydrocephalus. Zuniga-white matter differentiation is normal. There is no acute intracranial hemorrhage. There is no mass, mass effect or midline shift. 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 Visualized portions of the orbits are normal with exception of bilateral lens replacement and senescent calcification. Mild mucosal thickening of the left sphenoid sinus is identified. Mastoid air cells are well aerated. Scalp and calvaria are normal. IMPRESSION: No acute intracranial hemorrhage. Mild generalized cerebral volume loss. Low-attenuation in the periventricular white matter is suggestive of chronic small vessel ischemic changes. There is a remote lacunar infarct in the left moise. CALLI CHENG MD May 30, 2018 12:01
--- NOTE | 2018-05-30 12:15 | NUR ---
Spoke with pt's son who reported they have chosen [facility] (1st option) and [facility] (2nd option). SW phoned and faxed referral. Pt admission and acceptance pending. Will continue to follow.
[2018-05-30] MEDS ORDERED: TRAM50TA PO (13:58)
--- NOTE | 2018-05-30 14:00 | SNU/HH DC ---
DISCHARGE ORDERS DISCHARGE INFORMATION: DISCHARGE DATE: May 30, 2018 FINAL DIAGNOSIS Problems Medical Problems: (1) Decreased level of consciousness Status: Acute CONDITION ON DISCHARGE: Stable CODE STATUS: Code Status: DNR/DNI USP: SNF STAY <30 DAYS: Yes POST DISCHARGE ORDERS: ACTIVITY ORDERS: Activity as tolerated WEIGHT BEARING STATUS: No restrictions DIET AFTER DISCHARGE: Cardiac TREATMENT/EQUIPMENT ORDERS: Physical Therapy For: Evalulation/Treatment Occupational Therapy For: Evaluation/Treatment DISCHARGE MEDICATIONS: Home Meds Active Scripts Tramadol Hcl (TRAMADOL HCL) 50 Mg Tablet, 25 MG PO PRN QHS PRN for pain/ sleep for 5 Days, #5 TAB Prov:JEFFERSON TAVERAS MD 05/30/18 Reported Medications Sennosides/Docusate Sodium (SENNA PLUS TABLET) 1 Each Tablet, 1 EACH PO DAILY PRN for CONSTIPATION, TAB 05/28/18 Fluticasone Propionate (FLUTICASONE PROPIONATE [place] SPRAY) 16 Gm [place].susp, 2 SPRAY NS DAILY PRN for ALLERGIES MDD daily, #1 INHALER 11 Refills 05/28/18 Loratadine (LORATADINE) 10 Mg Tablet, 1 TAB PO DAILY PRN for ALLERGIES MDD daily , #30 TAB 5 Refills 05/28/18 Bisacodyl (DULCOLAX) 5 Mg Tablet.dr, 10 MG PO PRN DAILY PRN for CONSTIPATION, TAB 0 Refills 05/28/18 Menthol (BIOFREEZE) 118 Ml Gel..ml., 118 ML TP Q2HR W/A for pain, EACH 05/28/18 Acetaminophen (TYLENOL) 325 Mg Tablet, 2 TAB PO PRN Q4HRS PRN for PAIN, #30 TAB 05/28/18 Cholecalciferol (Vitamin D3) (VITAMIN D3) 1,000 Unit Tablet, 3 TAB PO DAILY for supplements, #30 TAB 5 Refills 05/28/18 Multivits,Ca,Minerals/Iron/Fa (THERA-TABS M CAPLET) 1 Each Tablet, 1 EACH PO DAILY for supplement, TAB 05/28/18 Ranitidine Hcl (RANITIDINE HCL) 150 Mg Tablet, 150 MG PO DAILY for GERD, TAB 05/28/18 Metoprolol Tartrate (METOPROLOL TARTRATE) 25 Mg Tablet, 1 TAB PO BID for htn, # 180 TAB 1 Refill 05/28/18 Imipramine Hcl (IMIPRAMINE HCL) 10 Mg Tablet, 10 MG PO DAILY for depression, TAB 05/28/18 Hydrochlorothiazide (HYDROCHLOROTHIAZIDE TABLET ) 25 Mg Tablet, 25 MG PO DAILY for DIURETIC, TAB 0 Refills 05/28/18 Calcium Carbonate/Vitamin D3 (CALCIUM 600 + VIT D 200 TABLET) 1 Each Tablet, 1 EACH PO DAILY for supplement, TAB 05/28/18 Aspirin (ASPIRIN) 81 Mg Tab.chew, 1 TAB PO DAILY for thrombprophylaxis, #30 TAB 3 Refills 05/28/18 Alendronate Sodium (ALENDRONATE SODIUM) 70 Mg Tablet, 1 TAB PO WEEKLY for osteoporosis, #4 TAB 3 Refills 05/28/18 JEFFERSON TAVERAS MD May 30, 2018 14:00
--- NOTE | 2018-05-30 14:12 | PDOC3 ---
Discharge Summary Visit Information Date of Admission: May 27, 2018 Date of Discharge: May 30, 2018 Final Diagnosis Problems Medical Problems: (1) Decreased level of consciousness Status: Acute Brief Hospital Course Allergies Allergies Coded Allergies Type Severity Reaction Last Updated Verified ketoprofen Allergy Intermediate Rash 05/28/18 Yes propoxyphene Allergy Mild Itching 05/28/18 Yes Vital Signs Vital Signs Date Time Temp Pulse Resp B/P (MAP) Pulse Ox O2 Delivery O2 Flow Rate FiO2 05/30/18 11:00 98.2 68 18 134/67 (89) 97 Room Air 98.2 Brief Hospital Course 87-year-old white female lives in [place] and uses walker sometimes, brought in by concerned family because of confusion. Sounds like dementia features beginning. Had some neck surgeries July or August this year. Also needed some hospitalization for 1 week and another institution was told to have transient amnesia and never got back to baseline. HAd MRI, neuro etc and neg work up. patient is a full code Family has noticed more forgetfulness, occasional confusion. Patient knows she is in the hospital but looks uncomfortable but that 's because of her chronic neck pain - prev numerous neck sx. She actually does not want to be admittedCT head and chest x-ray is negative except for brain atrophy/chronic small vessel change. Family concerned about the decreased [id number]. Consulted neurology on admission. Hospitalist called for admission. Patient admitted to a medical floor bed in stable condition. encephalopathy unclear cuase. still with intermittent confusion. infection ruled out. UA and CXR clean with normal TSH and ESR. no evidence of stroke or TIA. neurology initially felt to start imipramine but stopped due to ACh side effects. started tramadol prn. will need outpatient EEG. defer starting AEDs for now. patient has acute on chonic knee pain, given intermittent injections. family and patient agreeable to SNU. will discharge to facility today in stable condition. patient full code at time of discharge. Discharge Information Condition at Discharge: Improved Disposition/Orders: D/C to Another Facility Scheduled Alendronate Sodium (Alendronate Sodium) 70 Mg Tablet, 1 TAB PO WEEKLY for osteoporosis, #4 Ref 3 (Reported) Entered as Reported by: JAMIN HOOKER on 05/28/18 0003 Last Taken: Unknown Dose on 05/25/18 0500 Last Action: Converted on 1012 by VICTOR MANUEL ZALDIVAR Aspirin (Aspirin) 81 Mg Tab.chew, 1 TAB PO DAILY for thrombprophylaxis, #30 Ref 3 (Reported) Entered as Reported by: JAMIN HOOKER on 05/28/182 Last Taken: Unknown Dose on 05/27/18 0800 Last Action: Continued on 1011 by VICTOR MANUEL ZALDIVAR Calcium Carbonate/Vitamin D3 (Calcium 600 + Vit D 200 Tablet) 1 Each Tablet, 1 EACH PO DAILY for supplement, (Reported) Entered as Reported by: JAMIN HOOKER on 05/28/182 Last Taken: Unknown Dose on 05/27/18899 Last Action: Converted on 1011 by VICTOR MANUEL ZALDIVAR Cholecalciferol (Vitamin D3) (Vitamin D3) 1,000 Unit Tablet, 3 TAB PO DAILY for supplements, #30 Ref 5 (Reported) Entered as Reported by: JAMIN HOOKER on 05/28/182 Last Action: Continued on 05/28/181011 by VICTOR MANUEL ZALDIVAR Hydrochlorothiazide (Hydrochlorothiazide Tablet ) 25 Mg Tablet, 25 MG PO DAILY for DIURETIC, Ref 0 (Reported) Entered as Reported by: JAMIN HOOKER on 05/28/182 Last Taken: Unknown Dose on 05/27/18899 Last Action: Continued on 1011 by VICTOR MANUEL ZALDIVAR Menthol (Biofreeze) 118 Ml Gel..ml., 118 ML TP Q2HR W/A for pain, (Reported) Entered as Reported by: JAMIN HOOKER on 05/28/182 Last Action: Converted on 05/28/181011 by VICTOR MANUEL ZALDIVAR Metoprolol Tartrate (Metoprolol Tartrate) 25 Mg Tablet, 1 TAB PO BID for htn, # 180 Ref 1 (Reported) Entered as Reported by: JAMIN HOOKER on 05/28/182 Last Action: Continued on 05/28/181011 by VICTOR MANUEL ZALDIVAR Multivits,Ca,Minerals/Iron/Fa (Thera-Tabs M [place]) 1 Each Tablet, 1 EACH PO DAILY for supplement, (Reported) Entered as Reported by: JAMIN HOOKER on 05/28/182 Last Action: Converted on 05/28/181011 by VICTOR MANUEL ZALDIVAR Ranitidine Hcl (Ranitidine Hcl) 150 Mg Tablet, 150 MG PO DAILY for GERD, ( Reported) Entered as Reported by: JAMIN HOOKER on 05/28/182 Last Action: Converted on 05/28/181011 by VICTOR MANUEL ZALDIVAR Scheduled PRN Acetaminophen (Tylenol) 325 Mg Tablet, 2 TAB PO PRN Q4HRS PRN for PAIN, #30 ( Reported) Entered as Reported by: JAMIN HOOKER on 05/28/182 Last Action: Continued on 05/28/181011 by VICTOR MANUEL ZALDIVAR Bisacodyl (Dulcolax) 5 Mg Tablet.dr, 10 MG PO PRN DAILY PRN for CONSTIPATION, Ref 0 (Reported) Entered as Reported by: JAMIN HOOKER on 05/28/182 Last Action: Continued on 05/28/181011 by VICTOR MANUEL ZALDIVAR Fluticasone Propionate (Fluticasone Propionate Nasal [place]) 16 Gm [place].susp, 2 SPRAY NS DAILY PRN for ALLERGIES MDD daily, #1 Ref 11 (Reported) Entered as Reported by: JAMIN HOOKER on 05/28/182 Last Action: Continued on 05/28/181011 by VICTOR MANUEL ZALDIVAR Loratadine (Loratadine) 10 Mg Tablet, 1 TAB PO DAILY PRN for ALLERGIES MDD daily , #30 Ref 5 (Reported) Entered as Reported by: JAMIN HOOKER on 05/28/182 Last Action: Converted on 05/28/181011 by VICTOR MANUEL ZALDIVAR Sennosides/Docusate Sodium (Senna Plus Tablet) 1 Each Tablet, 1 EACH PO DAILY PRN for CONSTIPATION, (Reported) Entered as Reported by: JAMIN HOOKER on 05/28/182 Last Action: Continued on 05/28/181011 by VICTOR MANUEL ZALDIVAR Tramadol Hcl (Tramadol Hcl) 50 Mg Tablet, 25 MG PO PRN QHS PRN for pain/ sleep for 5 Days, #5 Prescribed by: JEFFERSON TAVERAS MD on 05/30/18 1358 Discontinued Medications Imipramine Hcl (Imipramine Hcl) 10 Mg Tablet, 10 MG PO DAILY for depression, ( Reported) Entered as Reported by: JAMIN HOOKER on 05/28/18 0003 Last Action: Converted on 05/28/18 1012 by JEFFERSON PACHECO MD May 30, 2018 14:12
--- NOTE | 2018-05-30 14:50 | NUR ---
SW following. Pt has been accepted at [facility] and orders faxed to facility. Pt will transport via facility w/c van between [phone]. Pt's choice and rights forms consented via phone by pt's son Crispin and placed on chart. Pt and pt's daughter, Joelle notified in room. Packet on chart. BETH MERRITT.
[2018-05-30 15:00] VITALS: BP 150/79
--- NOTE | 2018-05-30 15:26 | NUR ---
Report called to [facility] - report given to SHAINA Hdz. Will continue to monitor patient for changes. Pickup time is approximately [id number].
--- NOTE | 2018-05-30 17:52 | NUR ---
Discharge Note: BEVERLY ROCHA Discharge instructions and discharge home medications reviewed with Other facility and a copy given. All questions have been answered and understanding verbalized. The following instructions and handouts were given: discharge instructions, medication reconciliation, and new prescription. Discontinued lines and drains: Peripheral IV discontinued intact. Patient discharged to [facility]mediate Facility with Transport Personnel via Wheelchair
--- NOTE | 2018-05-30 18:41 | EEG ---
DATE OF SERVICE: 05/30/2018 OBJECTIVE: The patient is an 87-year-old female with an episode of unresponsiveness yesterday and history of dementia. DESCRIPTION: This is a digital study. Electrodes are placed according to the international 10-20 system. Bipolar and referential montages are available. INTERPRETATION: The waking background consists of 8 Hz, 50-100 microvolt activity, symmetrically distributed over parietooccipital regions and reactive to eye opening. Sleep is not achieved. Hyperventilation is noncontributory. Intermittent photic stimulation is noncontributory. All computer-identified abnormalities are in fact normal electroencephalogram patterns. IMPRESSION: This electroencephalogram with the patient awake only is within normal limits. There is no focal, paroxysmal or epileptiform activity. Thank you for letting us help with the patient's care. CALLI CHENG MD DR: JUNIOR/ale JOB#: [id number] / [id number]
[2018-06-04] MEDS ORDERED: NON FORMULARY ITEM (Alendronate Sodium 1 TAB) PO SCH (09:00)
== END 2018-05-30 17:54 | DRG 72 ==
LOC: ER 13:05 → OBSVTOIN 14:42 → 5 NORTH 14:42
PROVIDERS: ADMIT Internal Medicine; ATTEND Internal Medicine
PROC: 3E0U33Z Introduction of Anti-inflammatory into Joints, Percutaneous Approach (ICD-10-PCS; principal; 2018-05-28)
PROC: 3E0U3BZ Introduction of Anesthetic Agent into Joints, Percutaneous Approach (ICD-10-PCS; 2018-05-28)
DX: G93.40 Encephalopathy, unspecified (principal); F03.90 Unspecified dementia, unspecified severity, without behavioral disturbance, psychotic disturbance, mood disturbance, and anxiety; I11.0 Hypertensive heart disease with heart failure; M17.12 Unilateral primary osteoarthritis, left knee; I50.9 Heart failure, unspecified; F32.9 Major depressive disorder, single episode, unspecified; G31.9 Degenerative disease of nervous system, unspecified; G47.00 Insomnia, unspecified; G89.29 Other chronic pain; H91.90 Unspecified hearing loss, unspecified ear; J45.909 Unspecified asthma, uncomplicated; Z66 Do not resuscitate; K21.9 Gastro-esophageal reflux disease without esophagitis; M16.0 Bilateral primary osteoarthritis of hip; M19.012 Primary osteoarthritis, left shoulder; M81.0 Age-related osteoporosis without current pathological fracture; Z79.899 Other long term (current) drug therapy; Z79.82 Long term (current) use of aspirin; Z86.73 Personal history of transient ischemic attack (TIA), and cerebral infarction without residual deficits; Z88.8 Allergy status to other drugs, medicaments and biological substances
CPT/HCPCS: 36415; 70450; 71045; 80048; 80076; 81001; 82607; 83690; 84443; 84484; 85025; 85610; 85651; 85730; 87641; 93005; 95816; J1030; J3490; J7030; 97110; 97116; 97530; 97535; 99285-25

== ENCOUNTER 2018-09-29 19:09 | Inpatient (IN) | payer MEDICARE ==
[~2018-09-29] VITALS: Ht 160 cm; Wt 50.3 kg
[~2018-09-29 19:09] MED LIST changes: -LIDO700A21 TD; -OXYC1TAB15 PO
[2018-09-29 19:30] VITALS: BP 169/87
[2018-09-29] MEDS ORDERED: DOCUSATE SODIUM 100 MG CAPSULE. PO PRN (21:00)
[2018-09-29] MEDS ORDERED: FLUTICASONE 50MCG/NASAL SPRAY 16GM BOTTLE. NS PRN (21:00)
[2018-09-29] MEDS ORDERED: SENNOSIDES/DOCUSATE 8.6/50MG TABLET. PO PRN (21:00)
[2018-09-29] MEDS ORDERED: BISACODYL 5 MG TABLET.DR. PO PRN (21:00)
[2018-09-29] MEDS ORDERED: METHYL SALICYLATE/MENTHOL TOPICAL OINTMENT 29GM TUBE. TP PRN (21:15)
[2018-09-29 21:26] LABS: BILIRUBIN,URINE NEGATIVE (NEG); CLARITY,URINE CLEAR; COLOR,URINE YELLOW; NITRITE,URINE POSITIVE (NEG); PH,URINE 7.5; PROTEIN,URINE NEGATIVE (NEG-TRACE)
[2018-09-29 21:29] LABS: SQUAMOUS EPITHELIAL CELL,UR FEW /LPF
[2018-09-29 21:30] LABS: AMORPHOUS SEDIMENT,UR PRESENT /HPF; BACTERIA,URINE MODERATE /HPF (0-FEW); RBC,URINE 0 /HPF (0-2)
--- NOTE | 2018-09-29 21:35 | PDOC1 ---
History and Physical Date of Admission Date of Admission DATE: 09/29/18 TIME: 21:32 History of Present Illness History of Present Illness recent fracture of her right humerus. s/p surg repair weeks ago, was at SNU, today imaging done to arm for worsening pain to severe pain for 2 days. Xray showed misalignment of fracture from previous, sent to room 404, direct admit, pain severe with movement, ok at rest, 4/10 Past Medical History Cardiovascular: CHF Pulmonary: Asthma Musculoskeletal: Osteoarthritis Past Surgical History Past Surgical History: Other (right humerus recent) Family History Family History: Hypertension Social History Smoke: No ALCOHOL: none Drugs: None Current Medications Current Medications Current Medications Acetaminophen (Tylenol) 650 mg PRN Q4HRS PRN PO MILD PAIN 1-3; Start 09/29/18 at 21:00 Bisacodyl (Dulcolax Tab) 10 mg PRN DAILY PRN PO CONSTIPATION 2ND CHOICE; Start 09/29/18 at 21:00 Vitamin D (Vitamin D3) 3,000 unit DAILY PO ; Start 09/30/18 at 09:00 Docusate Sodium (Colace) 100 mg PRN BID PRN PO CONSTIPATION 1ST CHOICE; Start 09/29/18 at 21:00 Fluticasone Propionate (Flonase) 2 spray PRN DAILY PRN NS ALLERGIES; Start 09/29/18 at 21:00 Hydrochlorothiazide (Hydrodiuril) 25 mg DAILY PO ; Start 09/30/18 at 09:00 Metoprolol Tartrate (Lopressor) 25 mg BID PO ; Start 09/29/18 at 21:00 Senna/Docusate Sodium (Senna Plus) 1 tab PRN DAILY PRN PO CONSTIPATION 3RD CHOICE; Start 09/29/18 at 21:00 Tramadol HCl (Ultram) 25 mg PRN BID PRN PO MODERATE PAIN 4-6; Start 09/29/18 at 21:00 Non-Formulary Medication (Imipramine Hcl ) 10 mg DAILY PO ; Start 09/30/18 at 09:00; Status UNV Cetirizine HCl (ZyrTEC) 10 mg PRN DAILY PRN PO ALLERGIES; Start 09/30/18 at 09:00 Multi-Ingredient Ointment (Analgesic [place]) 1 jose PRN QID PRN TP MUSCLE PAIN; Start 09/29/18 at 21:15 Multivitamins (Thera M Plus) 1 tab DAILY PO ; Start 09/30/18 at 09:00 Famotidine (Pepcid) 20 mg DAILY PO ; Start 09/30/18 at 09:00 Oxycodone/ Acetaminophen (Percocet 5/325) 1 tab PRN Q4HRS PRN PO SEVERE PAIN 7- 10; Start 09/29/18 at 21:00 Active Scripts Active Enoxaparin Sodium 40 Mg/0.4 Ml Disp.syrin 40 Mg SQ DAILY Colace (Docusate Sodium) 100 Mg Capsule 100 Mg PO PRN BID PRN Tramadol Hcl 50 Mg Tablet 25 Mg PO BID PRN Reported Imipramine Hcl 10 Mg Tablet 10 Mg PO DAILY Senna Plus Tablet (Sennosides/Docusate Sodium) 1 Each Tablet 1 Each PO DAILY PRN Fluticasone Propionate Nasal [place] (Fluticasone Propionate) 16 Gm [place].susp 2 [place] NS DAILY PRN MDD daily Loratadine 10 Mg Tablet 1 Tab PO DAILY PRN MDD daily Dulcolax (Bisacodyl) 5 Mg Tablet.dr 10 Mg PO PRN DAILY PRN Biofreeze (Menthol) 118 Ml Gel..ml. 118 Ml TP Q2HR W/A Tylenol (Acetaminophen) 325 Mg Tablet 2 Tab PO PRN Q4HRS PRN Vitamin D3 (Cholecalciferol (Vitamin D3)) 1,000 Unit Tablet 3 Tab PO DAILY Thera-Tabs M [place] (Multivits,Ca,Minerals/Iron/Fa) 1 Each Tablet 1 Each PO DAILY Ranitidine Hcl 150 Mg Tablet 150 Mg PO DAILY Metoprolol Tartrate 25 Mg Tablet 1 Tab PO BID Hydrochlorothiazide Tablet (Hydrochlorothiazide) 25 Mg Tablet 25 Mg PO DAILY Calcium 600 + Vit D 200 Tablet (Calcium Carbonate/Vitamin D3) 1 Each Tablet 1 Each PO DAILY Aspirin 81 Mg Tab.chew 1 Tab PO DAILY Alendronate Sodium 70 Mg Tablet 1 Tab PO WEEKLY Allergies Allergies: Coded Allergies: hydrocodone (Verified Allergy, Intermediate, 08/18/18) confusion,hallucination ketoprofen (Verified Allergy, Intermediate, Rash, 05/28/18) propoxyphene (Verified Allergy, Mild, Itching, 05/28/18) ROS General: No: Night Sweats, Fatigue, Malaise, Appetite, Other PSYCHOLOGICAL ROS: YES: Disorientation, Memory difficulties; No: Anxiety, Behavioral Disorder, Concentration difficultie, Decreased libido, Depression, Hallucinations, Hostility, Irritablity, Mood Swings, Obsessive thoughts, Other Eyes: No Blurry vision, No Decreased vision, No Double vision, No Dry eyes, No Excessive tearing, No Eye Pain, No Itchy Eyes, No Loss of vision, No P hotophobia, No Scotomata, No Uses contacts, No Uses glasses, No Other HEENT: No: Heacaches, Visual Changes, Hearing change, Nasal congestion, Nasal discharge, Oral lesions, Sinus pain, Sore Throat, Epistaxis, Sneezing, Snoring, Tinnitus, Vertigo, Vocal changes, Other Respiratory: No: Cough, Hemoptysis, Orthopnea, Pleuritic Pain, Shortness of breath, SOB with excertion, Sputum Changes, Stridor, Tachypnea, Wheezing, Other Cardiovascular: No Chest Pain, No Palpitations, No Orthopnea, No Paroxysmal Noc. Dyspnea, No Edema, No Lt Headedness, No Other Gastrointestinal: No Nausea, No Vomiting, No Abdominal Pain, No Diarrhea, No Constipation, No Melena, No Hematochezia, No Other Genitourinary: No Dysuria, No Frequency, No Incontinence, No Hematuria, No Retention, No Discharge, No Urgency, No Pain, No Flank Pain, No Other, No , No , No , No , No , No , No Musculoskeletal: Yes Joint Pain, Yes Joint Stiffness Neurological: Yes Weakness; No Behavorial Changes, No Bowel/Bladder ControlChng, No Confusion, No Dizziness, No Headaches, No Impaired Coord/balance, No Memory Loss, No N umbness/Tingling, No Seizures, No Other Skin: No Dry Skin, No Eczema, No Hair Changes, No Lumps, No Mole Changes, No Mottling, No Nail Changes, No Pruritus, No Rash, No Skin Lesion Changes, No Other, No Acne Physical Exam General: Alert, Cooperative, No acute distress, Other (disoriented, family here to asssit) HEENT: Atraumatic, PERRLA Lungs: Clear to auscultation Heart: S1S2, no murmurs Abdomen: Normal bowel sounds, Soft Extremities: No clubbing, Normal pulses, Other (right arm very painful to move or touch) Skin: No breakdown, No significant lesion Neuro: Normal gait, Normal tone, Sensation intact Psych/Mental Status: Mood NL Labs Labs Laboratory Tests Test 09/29/18 20:45 Urine Collection Type Clean catch Urine Color Yellow Urine Clarity Clear Urine pH 7.5 Urine Specific [place] 1.010 Urine Protein Negative mg/dL (NEG-TRACE) Urine Glucose (UA) Negative mg/dL (NEG) Urine Ketones (Stick) Negative mg/dL (NEG) Urine Blood Negative (NEG) Urine Nitrite Positive (NEG) Urine Bilirubin Negative (NEG) Urine Urobilinogen Dipstick 1.0 mg/dL (0.2 mg/dL) Urine Leukocyte Esterase Trace (NEG) Urine RBC 0 /HPF (0-2) Urine WBC 1-4 /HPF (0-4) Urine Squamous Epithelial Cells Few /LPF Urine Amorphous Sediment Present /HPF Urine Bacteria Moderate /HPF (0-FEW) Laboratory Tests Test 09/29/18 20:45 Urine Collection Type Clean catch Urine Color Yellow Urine Clarity Clear Urine pH 7.5 Urine Specific [place] 1.010 Urine Protein Negative mg/dL (NEG-TRACE) Urine Glucose (UA) Negative mg/dL (NEG) Urine Ketones (Stick) Negative mg/dL (NEG) Urine Blood Negative (NEG) Urine Nitrite Positive (NEG) Urine Bilirubin Negative (NEG) Urine Urobilinogen Dipstick 1.0 mg/dL (0.2 mg/dL) Urine Leukocyte Esterase Trace (NEG) Urine RBC 0 /HPF (0-2) Urine WBC 1-4 /HPF (0-4) Urine Squamous Epithelial Cells Few /LPF Urine Amorphous Sediment Present /HPF Urine Bacteria Moderate /HPF (0-FEW) VTE Prophylaxis Ordered VTE Prophylaxis Devices: Yes VTE Pharmacological Prophylaxi: Yes Assessment/Plan Assessment/Plan humerus fracture, not healing well misalingment severe pain dementia htn, chronic diastolic CHF asthma admit DADA HEMPHILL MD Sep 29, 2018 21:35
[2018-09-29] MEDS: oxyCODONE/APAP 5/325 1 TAB TABLET PO PRN (21:45)
[2018-09-29] MEDS: METOPROLOL TART IMMED RELEASE 25 MG TABLET. PO SCH (21:45)
--- NOTE | 2018-09-29 22:39 | NUR ---
pt arrived at 1938 from [facility] per EMS, transferred to room 404, Dr Gandara came and examined pt, new orders noted, family informed of POC and current treatment. Will continue to monitor pt and give support.
[2018-09-29 23:42] VITALS: BP 138/67
[2018-09-30] VITALS (12 sets, daily range): BP systolic 127–155; BP diastolic 64–86
[2018-09-30 07:47] LABS: BASO % 1 % (0-3); EOS # 0.1 x10^3/uL (0.0-0.7); EOS % 1 % (0-3); HEMATOCRIT 34.4 % (36.0-47.0); HEMOGLOBIN 11.7 g/dL (12.0-15.5); LYMPH # 2.4 x10^3/uL (1.0-4.8); LYMPH % 49 % (24-48); MEAN CORPUSCULAR HEMOGLOBIN 32 pg (25-35); MEAN CORPUSCULAR HGB CONC 34 g/dL (31-37); MEAN CORPUSCULAR VOLUME 95 fL (79-100); MONO # 0.4 x10^3/uL (0.0-1.1); MONO % 9 % (0-9); NEUT # 1.9 x10^3/uL (1.8-7.7); NEUT % 40 % (31-73); PLATELET COUNT 399 x10^3/uL (140-400); RED BLOOD COUNT 3.61 x10^6/uL (3.50-5.40); WHITE BLOOD COUNT 4.9 x10^3/uL (4.0-11.0)
[2018-09-30 07:56] LABS: CALCIUM 8.8 mg/dL (8.5-10.1); CREATININE 0.6 mg/dL (0.6-1.0); GFR 94.3; POTASSIUM 3.9 mmol/L (3.5-5.1)
--- NOTE | 2018-09-30 08:51 | PDOC ---
PROGRESS NOTES Chief Complaint Chief Complaint r arm pain Healing displaced right humeral midshaft fracture with increasing angulation at the fracture site relative to the prior exam. dementia htn, chronic diastolic CHF asthma History of Present Illness History of Present Illness ortho eval today stable otherwise Vitals Vitals Vital Signs Date Time Temp Pulse Resp B/P (MAP) Pulse Ox O2 Delivery O2 Flow Rate FiO2 09/30/18 08:00 Room Air 09/30/18 07:00 97.6 81 18 127/74 (91) 96 97.6 Physical Exam General: Alert, Cooperative, No acute distress, Other (disoriented, family here to asssit) Lungs: Clear Abdomen: Normal bowel sounds, Soft Extremities: No clubbing, Normal pulses, Other (right arm very painful to move or touch) Skin: No breakdown, No significant lesion Labs LABS Laboratory Tests Test 09/29/18 20:45 09/30/18 07:15 Urine Collection Type Clean catch Urine Color Yellow Urine Clarity Clear Urine pH 7.5 Urine Specific [place] 1.010 Urine Protein Negative mg/dL (NEG-TRACE) Urine Glucose (UA) Negative mg/dL (NEG) Urine Ketones (Stick) Negative mg/dL (NEG) Urine Blood Negative (NEG) Urine Nitrite Positive (NEG) Urine Bilirubin Negative (NEG) Urine Urobilinogen Dipstick 1.0 mg/dL (0.2 mg/dL) Urine Leukocyte Esterase Trace (NEG) Urine RBC 0 /HPF (0-2) Urine WBC 1-4 /HPF (0-4) Urine Squamous Epithelial Cells Few /LPF Urine Amorphous Sediment Present /HPF Urine Bacteria Moderate /HPF (0-FEW) White Blood Count 4.9 x10^3/uL (4.0-11.0) Red Blood Count 3.61 x10^6/uL (3.50-5.40) Hemoglobin 11.7 g/dL (12.0-15.5) Hematocrit 34.4 % (36.0-47.0) Mean Corpuscular Volume 95 fL (79-100) Mean Corpuscular Hemoglobin 32 pg (25-35) Mean Corpuscular Hemoglobin Concent 34 g/dL (31-37) Red Cell Distribution Width 16.0 % (11.5-14.5) Platelet Count 399 x10^3/uL (140-400) Neutrophils (%) (Auto) 40 % (31-73) Lymphocytes (%) (Auto) 49 % (24-48) Monocytes (%) (Auto) 9 % (0-9) Eosinophils (%) (Auto) 1 % (0-3) Basophils (%) (Auto) 1 % (0-3) Neutrophils # (Auto) 1.9 x10^3/uL (1.8-7.7) Lymphocytes # (Auto) 2.4 x10^3/uL (1.0-4.8) Monocytes # (Auto) 0.4 x10^3/uL (0.0-1.1) Eosinophils # (Auto) 0.1 x10^3/uL (0.0-0.7) Basophils # (Auto) 0.0 x10^3/uL (0.0-0.2) Sodium Level 137 mmol/L (136-145) Potassium Level 3.9 mmol/L (3.5-5.1) Chloride Level 102 mmol/L (98-107) Carbon Dioxide Level 26 mmol/L (21-32) Anion Gap 9 (6-14) Blood Urea Nitrogen 12 mg/dL (7-20) Creatinine 0.6 mg/dL (0.6-1.0) Estimated GFR (Cockcroft-Gault) 94.3 Glucose Level 95 mg/dL (70-99) Calcium Level 8.8 mg/dL (8.5-10.1) Review of Systems Review of Systems no nv.vd. Comment Review of Relevant I have reviewed the following items timoteo (where applicable) has been applied. Labs Laboratory Tests Test 09/29/18 20:45 09/30/18 07:15 Urine Collection Type Clean catch Urine Color Yellow Urine Clarity Clear Urine pH 7.5 Urine Specific [place] 1.010 Urine Protein Negative mg/dL (NEG-TRACE) Urine Glucose (UA) Negative mg/dL (NEG) Urine Ketones (Stick) Negative mg/dL (NEG) Urine Blood Negative (NEG) Urine Nitrite Positive (NEG) Urine Bilirubin Negative (NEG) Urine Urobilinogen Dipstick 1.0 mg/dL (0.2 mg/dL) Urine Leukocyte Esterase Trace (NEG) Urine RBC 0 /HPF (0-2) Urine WBC 1-4 /HPF (0-4) Urine Squamous Epithelial Cells Few /LPF Urine Amorphous Sediment Present /HPF Urine Bacteria Moderate /HPF (0-FEW) White Blood Count 4.9 x10^3/uL (4.0-11.0) Red Blood Count 3.61 x10^6/uL (3.50-5.40) Hemoglobin 11.7 g/dL (12.0-15.5) Hematocrit 34.4 % (36.0-47.0) Mean Corpuscular Volume 95 fL (79-100) Mean Corpuscular Hemoglobin 32 pg (25-35) Mean Corpuscular Hemoglobin Concent 34 g/dL (31-37) Red Cell Distribution Width 16.0 % (11.5-14.5) Platelet Count 399 x10^3/uL (140-400) Neutrophils (%) (Auto) 40 % (31-73) Lymphocytes (%) (Auto) 49 % (24-48) Monocytes (%) (Auto) 9 % (0-9) Eosinophils (%) (Auto) 1 % (0-3) Basophils (%) (Auto) 1 % (0-3) Neutrophils # (Auto) 1.9 x10^3/uL (1.8-7.7) Lymphocytes # (Auto) 2.4 x10^3/uL (1.0-4.8) Monocytes # (Auto) 0.4 x10^3/uL (0.0-1.1) Eosinophils # (Auto) 0.1 x10^3/uL (0.0-0.7) Basophils # (Auto) 0.0 x10^3/uL (0.0-0.2) Sodium Level 137 mmol/L (136-145) Potassium Level 3.9 mmol/L (3.5-5.1) Chloride Level 102 mmol/L (98-107) Carbon Dioxide Level 26 mmol/L (21-32) Anion Gap 9 (6-14) Blood Urea Nitrogen 12 mg/dL (7-20) Creatinine 0.6 mg/dL (0.6-1.0) Estimated GFR (Cockcroft-Gault) 94.3 Glucose Level 95 mg/dL (70-99) Calcium Level 8.8 mg/dL (8.5-10.1) Laboratory Tests Test 09/29/18 20:45 09/30/18 07:15 Urine Collection Type Clean catch Urine Color Yellow Urine Clarity Clear Urine pH 7.5 Urine Specific [place] 1.010 Urine Protein Negative mg/dL (NEG-TRACE) Urine Glucose (UA) Negative mg/dL (NEG) Urine Ketones (Stick) Negative mg/dL (NEG) Urine Blood Negative (NEG) Urine Nitrite Positive (NEG) Urine Bilirubin Negative (NEG) Urine Urobilinogen Dipstick 1.0 mg/dL (0.2 mg/dL) Urine Leukocyte Esterase Trace (NEG) Urine RBC 0 /HPF (0-2) Urine WBC 1-4 /HPF (0-4) Urine Squamous Epithelial Cells Few /LPF Urine Amorphous Sediment Present /HPF Urine Bacteria Moderate /HPF (0-FEW) White Blood Count 4.9 x10^3/uL (4.0-11.0) Red Blood Count 3.61 x10^6/uL (3.50-5.40) Hemoglobin 11.7 g/dL (12.0-15.5) Hematocrit 34.4 % (36.0-47.0) Mean Corpuscular Volume 95 fL (79-100) Mean Corpuscular Hemoglobin 32 pg (25-35) Mean Corpuscular Hemoglobin Concent 34 g/dL (31-37) Red Cell Distribution Width 16.0 % (11.5-14.5) Platelet Count 399 x10^3/uL (140-400) Neutrophils (%) (Auto) 40 % (31-73) Lymphocytes (%) (Auto) 49 % (24-48) Monocytes (%) (Auto) 9 % (0-9) Eosinophils (%) (Auto) 1 % (0-3) Basophils (%) (Auto) 1 % (0-3) Neutrophils # (Auto) 1.9 x10^3/uL (1.8-7.7) Lymphocytes # (Auto) 2.4 x10^3/uL (1.0-4.8) Monocytes # (Auto) 0.4 x10^3/uL (0.0-1.1) Eosinophils # (Auto) 0.1 x10^3/uL (0.0-0.7) Basophils # (Auto) 0.0 x10^3/uL (0.0-0.2) Sodium Level 137 mmol/L (136-145) Potassium Level 3.9 mmol/L (3.5-5.1) Chloride Level 102 mmol/L (98-107) Carbon Dioxide Level 26 mmol/L (21-32) Anion Gap 9 (6-14) Blood Urea Nitrogen 12 mg/dL (7-20) Creatinine 0.6 mg/dL (0.6-1.0) Estimated GFR (Cockcroft-Gault) 94.3 Glucose Level 95 mg/dL (70-99) Calcium Level 8.8 mg/dL (8.5-10.1) Medications Current Medications Acetaminophen (Tylenol) 650 mg PRN Q4HRS PRN PO MILD PAIN 1-3; Start 09/29/18 at 21:00 Bisacodyl (Dulcolax Tab) 10 mg PRN DAILY PRN PO CONSTIPATION 2ND CHOICE; Start 09/29/18 at 21:00 Vitamin D (Vitamin D3) 3,000 unit DAILY PO ; Start 09/30/18 at 09:00 Docusate Sodium (Colace) 100 mg PRN BID PRN PO CONSTIPATION 1ST CHOICE Last administered on 09/29/18at 21:45; Start 09/29/18 at 21:00 Fluticasone Propionate (Flonase) 2 spray PRN DAILY PRN NS ALLERGIES; Start 09/29/18 at 21:00 Hydrochlorothiazide (Hydrodiuril) 25 mg DAILY PO ; Start 09/30/18 at 09:00 Metoprolol Tartrate (Lopressor) 25 mg BID PO Last administered on 09/29/18at 21:45; Start 09/29/18 at 21:00 Senna/Docusate Sodium (Senna Plus) 1 tab PRN DAILY PRN PO CONSTIPATION 3RD CHOICE; Start 09/29/18 at 21:00 Tramadol HCl (Ultram) 25 mg PRN BID PRN PO MODERATE PAIN 4-6; Start 09/29/18 at 21:00 Imipramine HCl (Tofranil) 12.5 mg DAILY PO ; Start 09/30/18 at 09:00 Cetirizine HCl (ZyrTEC) 10 mg PRN DAILY PRN PO ALLERGIES; Start 09/30/18 at 09:00 Multi-Ingredient Ointment (Analgesic [place]) 1 jose PRN QID PRN TP MUSCLE PAIN; Start 09/29/18 at 21:15 Multivitamins (Thera M Plus) 1 tab DAILY PO ; Start 09/30/18 at 09:00 Famotidine (Pepcid) 20 mg DAILY PO ; Start 09/30/18 at 09:00 Oxycodone/ Acetaminophen (Percocet 5/325) 1 tab PRN Q4HRS PRN PO SEVERE PAIN 7- 10 Last administered on 09/29/18at 21:45; Start 09/29/18 at 21:00 Active Scripts Active Enoxaparin Sodium 40 Mg/0.4 Ml Disp.syrin 40 Mg SQ DAILY Colace (Docusate Sodium) 100 Mg Capsule 100 Mg PO PRN BID PRN Tramadol Hcl 50 Mg Tablet 25 Mg PO BID PRN Reported Imipramine Hcl 10 Mg Tablet 10 Mg PO DAILY Senna Plus Tablet (Sennosides/Docusate Sodium) 1 Each Tablet 1 Each PO DAILY PRN Fluticasone Propionate Nasal [place] (Fluticasone Propionate) 16 Gm [place].susp 2 [place] NS DAILY PRN MDD daily Loratadine 10 Mg Tablet 1 Tab PO DAILY PRN MDD daily Dulcolax (Bisacodyl) 5 Mg Tablet.dr 10 Mg PO PRN DAILY PRN Biofreeze (Menthol) 118 Ml Gel..ml. 118 Ml TP Q2HR W/A Tylenol (Acetaminophen) 325 Mg Tablet 2 Tab PO PRN Q4HRS PRN Vitamin D3 (Cholecalciferol (Vitamin D3)) 1,000 Unit Tablet 3 Tab PO DAILY Thera-Tabs M Caplet (Multivits,Ca,Minerals/Iron/Fa) 1 Each Tablet 1 Each PO DAILY Ranitidine Hcl 150 Mg Tablet 150 Mg PO DAILY Metoprolol Tartrate 25 Mg Tablet 1 Tab PO BID Hydrochlorothiazide Tablet (Hydrochlorothiazide) 25 Mg Tablet 25 Mg PO DAILY Calcium 600 + Vit D 200 Tablet (Calcium Carbonate/Vitamin D3) 1 Each Tablet 1 Each PO DAILY Aspirin 81 Mg Tab.chew 1 Tab PO DAILY Alendronate Sodium 70 Mg Tablet 1 Tab PO WEEKLY Vitals/I & O Vital Sign - Last 24 Hours 09/29/18 09/29/18 09/29/18 09/29/18 19:30 20:00 21:45 21:45 Temp 98.3 98.3 Pulse 77 77 Resp 19 20 B/P (MAP) 169/87 (114) 169/87 Pulse Ox 100 100 O2 Delivery Room Air Room Air Room Air 09/29/18 09/29/18 09/30/18 09/30/18 23:34 23:42 03:45 07:00 Temp 98.0 97.9 97.6 98.0 97.9 97.6 Pulse 75 70 81 Resp 18 17 18 18 B/P (MAP) 138/67 (90) 136/64 (88) 127/74 (91) Pulse Ox 100 94 94 96 O2 Delivery Room Air Room Air Room Air Room Air 09/30/18 08:00 O2 Delivery Room Air Intake and Output 09/29/18 09/29/18 09/30/18 15:00 23:00 07:00 Intake Total 0 ml Balance 0 ml DADA HEMPHILL MD Sep 30, 2018 08:51
[2018-09-30] MEDS: IMIPRAMINE 25 MG TABLET PO SCH (09:00)
[2018-09-30] MEDS ORDERED: CETIRIZINE HCL 10 MG TABLET. PO PRN (09:00)
[2018-09-30] MEDS: hydroCHLOROthiazide 25 MG TABLET PO SCH (09:00)
[2018-09-30] MEDS: CHOLECALCIFEROL (VITAMIN D3) 1,000 UNIT TABLET PO SCH (09:00)
[2018-09-30] MEDS: FAMOTIDINE 20 MG TABLET. PO SCH (09:00)
[2018-09-30] MEDS: METOPROLOL TART IMMED RELEASE 25 MG TABLET. PO SCH ×2 (09:00→22:33)
[2018-09-30] MEDS: MULTIVITAMIN with MINERAL TABLET. PO SCH (09:00)
--- NOTE | 2018-09-30 12:36 | NUR ---
SS following for discharge planning. SS reviewed pt chart and received notification that pt was from [facility], ; fax [phone]. 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 SS will continue to follow for discharge planning.
--- NOTE | 2018-09-30 15:59 | RAD ---
AP and lateral views of the right humerus with comparison of 09/29/2018. INDICATION: Evaluate humeral alignment. FINDINGS: There is persistent mild malalignment of the mid transverse humeral fracture. There is bony callus formation consistent with healing identified. Alignment is improved when compared with yesterday's examination. Electronically signed by: Seth Birmingham MD (09/30/2018 3:56 PM) [id number]
[2018-09-30] MEDS ORDERED: IV RINGERS,LACTATED 1000ML 1,000 ML IV SCH (16:02)
[2018-09-30] MEDS ORDERED: PROPOFOL 20 ML IV ONE (16:02)
[2018-09-30] MEDS ORDERED: PROCHLORPERAZINE 10 MG/2 ML VIAL. IV PRN (16:15)
[2018-09-30] MEDS ORDERED: ONDANSETRON PF 4 MG/2 ML VIAL. IV PRN (16:15)
[2018-09-30] MEDS ORDERED: fentaNYL PF VIAL 100 MCG/2 ML VIAL IV PRN ×2 (16:15)
--- NOTE | 2018-09-30 17:21 | RAD ---
Examination: 2 views of the right humerus HISTORY: History of closed reduction COMPARISON: Same day exam 8:22 AM Findings/ impression: Posterolateral displaced fracture of the midshaft of the right humerus is again identified with surrounding bony callus formation similar to prior exam. Electronically signed by: Albaro Wills MD (09/30/2018 5:18 PM) [id number]
--- NOTE | 2018-09-30 22:22 | PDOC4 ---
Operative Note Operative Note Date of surgery: 09/30/2018 Preoperative diagnosis: Angulation/malunion left humerus shaft fracture Postoperative diagnosis: Same Operative procedure: Closed reduction left humerus shaft fracture Surgeon: Angela Anesthesia: Deep sedation provided by anesthesia Complications: None Operative indications: Please see my detailed consultation for detailed operative indications Operative procedure: Patient was identified procedure verified and after timeout performed and deep sedation provided by anesthesia a closed reduction was carried out to improve the alignment of the right humerus shaft fracture and near anatomic alignment noted on an anterior posterior radiograph post reduction and slight apex anterior angulation noted on the lateral view. I elected to accept this due to her ongoing good stability and a concern for over reduction specifically due to concerns with stretch on the radial nerve that I discussed with the family preoperatively. She was fit in a clamshell splint and recovered in satisfactory condition MIKE SORENSON MD Sep 30, 2018 22:22
[2018-10-01 03:00] VITALS: BP 137/77
[2018-10-01 07:00] VITALS: BP 147/77
[2018-10-01] MEDS: FAMOTIDINE 20 MG TABLET. PO SCH (08:19)
[2018-10-01] MEDS: CHOLECALCIFEROL (VITAMIN D3) 1,000 UNIT TABLET PO SCH (08:19)
[2018-10-01] MEDS: METOPROLOL TART IMMED RELEASE 25 MG TABLET. PO SCH ×2 (08:20→20:45)
[2018-10-01] MEDS: MULTIVITAMIN with MINERAL TABLET. PO SCH (08:20)
[2018-10-01] MEDS: IMIPRAMINE 25 MG TABLET PO SCH (08:21)
[2018-10-01] MEDS: hydroCHLOROthiazide 25 MG TABLET PO SCH (08:21)
[2018-10-01] MEDS: oxyCODONE/APAP 5/325 1 TAB TABLET PO PRN (09:21)
[2018-10-01 11:00] VITALS: BP 125/68
--- NOTE | 2018-10-01 13:36 | PDOC ---
PROGRESS NOTES Chief Complaint Chief Complaint r arm pain Healing displaced right humeral midshaft fracture with increasing angulation at the fracture site relative to the prior exam. dementia htn, chronic diastolic CHF asthma History of Present Illness History of Present Illness neck pain today surg yesterday cannot get comfortable, poss neck strain from surg stable otherwise Vitals Vitals Vital Signs Date Time Temp Pulse Resp B/P (MAP) Pulse Ox O2 Delivery O2 Flow Rate FiO2 10/01/18 11:00 97.6 72 18 125/68 (87) 96 Room Air 97.6 09/30/18 17:55 97.0 Physical Exam General: Alert, Cooperative, No acute distress, Other (disoriented, family here to asssit) Lungs: Clear Abdomen: Normal bowel sounds, Soft Extremities: No clubbing, Normal pulses, Other (right arm very painful to move or touch) Skin: No breakdown, No significant lesion Comment Review of Relevant I have reviewed the following items timoteo (where applicable) has been applied. Labs Laboratory Tests Test 09/29/18 20:45 09/30/18 02:00 09/30/18 07:15 Urine Collection Type Clean catch Urine Color Yellow Urine Clarity Clear Urine pH 7.5 Urine Specific [place] 1.010 Urine Protein Negative mg/dL (NEG-TRACE) Urine Glucose (UA) Negative mg/dL (NEG) Urine Ketones (Stick) Negative mg/dL (NEG) Urine Blood Negative (NEG) Urine Nitrite Positive (NEG) Urine Bilirubin Negative (NEG) Urine Urobilinogen Dipstick 1.0 mg/dL (0.2 mg/dL) Urine Leukocyte Esterase Trace (NEG) Urine RBC 0 /HPF (0-2) Urine WBC 1-4 /HPF (0-4) Urine Squamous Epithelial Cells Few /LPF Urine Amorphous Sediment Present /HPF Urine Bacteria Moderate /HPF (0-FEW) Nasal Screen MRSA (PCR) Negative (Negative) White Blood Count 4.9 x10^3/uL (4.0-11.0) Red Blood Count 3.61 x10^6/uL (3.50-5.40) Hemoglobin 11.7 g/dL (12.0-15.5) Hematocrit 34.4 % (36.0-47.0) Mean Corpuscular Volume 95 fL (79-100) Mean Corpuscular Hemoglobin 32 pg (25-35) Mean Corpuscular Hemoglobin Concent 34 g/dL (31-37) Red Cell Distribution Width 16.0 % (11.5-14.5) Platelet Count 399 x10^3/uL (140-400) Neutrophils (%) (Auto) 40 % (31-73) Lymphocytes (%) (Auto) 49 % (24-48) Monocytes (%) (Auto) 9 % (0-9) Eosinophils (%) (Auto) 1 % (0-3) Basophils (%) (Auto) 1 % (0-3) Neutrophils # (Auto) 1.9 x10^3/uL (1.8-7.7) Lymphocytes # (Auto) 2.4 x10^3/uL (1.0-4.8) Monocytes # (Auto) 0.4 x10^3/uL (0.0-1.1) Eosinophils # (Auto) 0.1 x10^3/uL (0.0-0.7) Basophils # (Auto) 0.0 x10^3/uL (0.0-0.2) Sodium Level 137 mmol/L (136-145) Potassium Level 3.9 mmol/L (3.5-5.1) Chloride Level 102 mmol/L (98-107) Carbon Dioxide Level 26 mmol/L (21-32) Anion Gap 9 (6-14) Blood Urea Nitrogen 12 mg/dL (7-20) Creatinine 0.6 mg/dL (0.6-1.0) Estimated GFR (Cockcroft-Gault) 94.3 Glucose Level 95 mg/dL (70-99) Calcium Level 8.8 mg/dL (8.5-10.1) Medications Current Medications Acetaminophen (Tylenol) 650 mg PRN Q4HRS PRN PO MILD PAIN 1-3; Start 09/29/18 at 21:00 Bisacodyl (Dulcolax Tab) 10 mg PRN DAILY PRN PO CONSTIPATION 2ND CHOICE; Start 09/29/18 at 21:00 Vitamin D (Vitamin D3) 3,000 unit DAILY PO Last administered on 10/01/18at 08:21; Start 09/30/18 at 09:00 Docusate Sodium (Colace) 100 mg PRN BID PRN PO CONSTIPATION 1ST CHOICE Last administered on 09/29/18at 21:45; Start 09/29/18 at 21:00 Fluticasone Propionate (Flonase) 2 spray PRN DAILY PRN NS ALLERGIES; Start 09/29/18 at 21:00 Hydrochlorothiazide (Hydrodiuril) 25 mg DAILY PO Last administered on 10/01/18at 08:21; Start 09/30/18 at 09:00 Metoprolol Tartrate (Lopressor) 25 mg BID PO Last administered on 10/01/18at 08:21; Start 09/29/18 at 21:00 Senna/Docusate Sodium (Senna Plus) 1 tab PRN DAILY PRN PO CONSTIPATION 3RD CHOICE; Start 09/29/18 at 21:00 Tramadol HCl (Ultram) 25 mg PRN BID PRN PO MODERATE PAIN 4-6; Start 09/29/18 at 21:00 Imipramine HCl (Tofranil) 12.5 mg DAILY PO Last administered on 10/01/18at 08:21; Start 09/30/18 at 09:00 Cetirizine HCl (ZyrTEC) 10 mg PRN DAILY PRN PO ALLERGIES; Start 09/30/18 at 09:00 Multi-Ingredient Ointment (Analgesic [place]) 1 jose PRN QID PRN TP MUSCLE PAIN; Start 09/29/18 at 21:15 Multivitamins (Thera M Plus) 1 tab DAILY PO Last administered on 10/01/18at 08:21; Start 09/30/18 at 09:00 Famotidine (Pepcid) 20 mg DAILY PO Last administered on 10/01/18at 08:21; Start 09/30/18 at 09:00 Oxycodone/ Acetaminophen (Percocet 5/325) 1 tab PRN Q4HRS PRN PO SEVERE PAIN 7- 10 Last administered on 10/01/18at 09:21; Start 09/29/18 at 21:00 Ondansetron HCl (Zofran) 4 mg PRN Q6HRS PRN IV NAUSEA/VOMITING; Start 09/30/18 at 16:15; Stop 09/30/18 at 22:00; Status DC Fentanyl Citrate (Fentanyl 2ml Vial) 25 mcg PRN Q5MIN PRN IV MILD PAIN 1-3; Start 09/30/18 at 16:15; Stop 09/30/18 at 22:00; Status DC Fentanyl Citrate (Fentanyl 2ml Vial) 50 mcg PRN Q5MIN PRN IV MODERATE TO SEVERE PAIN; Start 09/30/18 at 16:15; Stop 09/30/18 at 22:00; Status DC Ringer's Solution 1,000 ml @ 30 mls/hr Q24H IV Last administered on 09/30/18at 16:26; Start 09/30/18 at 16:02; Stop 10/01/18 at 04:01; Status DC Prochlorperazine Edisylate (Compazine) 5 mg PACU PRN PRN IV NAUSEA, MRX1; Start 09/30/18 at 16:15; Stop 09/30/18 at 22:00; Status DC Propofol 20 ml @ As Directed STK-MED ONCE IV ; Start 09/30/18 at 16:02; Stop 09/30/18 at 16:03; Status DC Active Scripts Active Enoxaparin Sodium 40 Mg/0.4 Ml Disp.syrin 40 Mg SQ DAILY Colace (Docusate Sodium) 100 Mg Capsule 100 Mg PO PRN BID PRN Tramadol Hcl 50 Mg Tablet 25 Mg PO BID PRN Reported Imipramine Hcl 10 Mg Tablet 10 Mg PO DAILY Senna Plus Tablet (Sennosides/Docusate Sodium) 1 Each Tablet 1 Each PO DAILY PRN Fluticasone Propionate Nasal [place] (Fluticasone Propionate) 16 Gm [place].susp 2 [place] NS DAILY PRN MDD daily Loratadine 10 Mg Tablet 1 Tab PO DAILY PRN MDD daily Dulcolax (Bisacodyl) 5 Mg Tablet.dr 10 Mg PO PRN DAILY PRN Biofreeze (Menthol) 118 Ml Gel..ml. 118 Ml TP Q2HR W/A Tylenol (Acetaminophen) 325 Mg Tablet 2 Tab PO PRN Q4HRS PRN Vitamin D3 (Cholecalciferol (Vitamin D3)) 1,000 Unit Tablet 3 Tab PO DAILY Thera-Tabs M Caplet (Multivits,Ca,Minerals/Iron/Fa) 1 Each Tablet 1 Each PO DAILY Ranitidine Hcl 150 Mg Tablet 150 Mg PO DAILY Metoprolol Tartrate 25 Mg Tablet 1 Tab PO BID Hydrochlorothiazide Tablet (Hydrochlorothiazide) 25 Mg Tablet 25 Mg PO DAILY Calcium 600 + Vit D 200 Tablet (Calcium Carbonate/Vitamin D3) 1 Each Tablet 1 Each PO DAILY Aspirin 81 Mg Tab.chew 1 Tab PO DAILY Alendronate Sodium 70 Mg Tablet 1 Tab PO WEEKLY Vitals/I & O Vital Sign - Last 24 Hours 09/30/18 09/30/18 09/30/18 09/30/18 15:00 15:34 16:31 16:45 Temp 98.0 97.9 97.9 98.0 97.9 97.9 Pulse 92 92 88 Resp 18 15 20 B/P (MAP) 144/81 (102) 155/77 125/68 Pulse Ox 96 96 92 O2 Delivery Room Air Room Air Nasal Cannula Room Air O2 Flow Rate 4.5 4.5 09/30/18 09/30/18 09/30/18 09/30/18 16:46 17:01 17:25 17:55 Temp 97.9 97.9 97.9 97.9 Pulse 84 86 90 98 Resp 22 22 14 14 B/P (MAP) 160/80 150/82 146/81 (102) 155/82 (106) Pulse Ox 99 96 97 O2 Delivery Nasal Cannula Room Air Room Air Room Air O2 Flow Rate 2 97.0 09/30/18 09/30/18 09/30/18 09/30/18 18:10 18:25 18:55 19:30 Temp 97.8 97.8 Pulse 100 105 105 98 Resp 14 14 14 18 B/P (MAP) 137/76 (96) 133/76 (95) 145/86 (105) 136/73 (94) Pulse Ox 97 98 96 98 O2 Delivery Room Air Room Air Room Air Room Air 09/30/18 09/30/18 09/30/18 09/30/18 19:45 21:35 22:33 23:03 Temp 98.1 97.8 98.1 97.8 Pulse 107 103 101 Resp 18 18 B/P (MAP) 127/77 (94) 146/81 146/81 (102) Pulse Ox 97 93 O2 Delivery Room Air Room Air Room Air 10/01/18 10/01/18 10/01/18 10/01/18 03:00 07:00 08:00 08:21 Temp 98.7 97.4 98.7 97.4 Pulse 84 85 85 Resp 18 18 B/P (MAP) 137/77 (97) 147/77 (100) 147/77 Pulse Ox 93 93 O2 Delivery Room Air Room Air Room Air 10/01/18 10/01/18 10/01/18 09:21 10:37 11:00 Temp 97.6 97.6 Pulse 72 Resp 18 B/P (MAP) 125/68 (87) Pulse Ox 96 O2 Delivery Nasal Cannula Room Air Room Air Intake and Output 09/30/18 09/30/18 10/01/18 15:00 23:00 07:00 Intake Total 100 ml 360 ml Balance 100 ml 360 ml DADA HEMPHILL MD Oct 01, 2018 13:36
[2018-10-01 15:00] VITALS: BP_SYST 105; BP_SYST 116; BP_DIAS 48; BP_DIAS 65
[2018-10-01] MEDS: LIDOCAINE (700MG/PATCH) PATCH. TD SCH (15:31)
--- NOTE | 2018-10-01 16:41 | CONS ---
DATE OF CONSULTATION: 09/30/2018 ORTHOPEDIC CONSULTATION REQUESTING PHYSICIAN: Maryann Gandara M.D. REASON FOR CONSULTATION: Malaligned right humerus fracture. HISTORY OF PRESENT ILLNESS: The patient is an 87-year-old female that had undergone apparently previous nonoperative treatment of her right humerus and was at [facility] and was reported to have worsening pain to her right arm for the past couple of days. Her family was here including her son, power of mergers and acquisitions attorney and another family member that noted that she seemed to have pain on movement and her arm looked like it was more deformed. She was therefore admitted for further evaluation and treatment. PAST MEDICAL HISTORY: Significant for congestive heart failure, arthritis and asthma. PAST SURGICAL HISTORY: Negative. It was listed that she had had surgery on her right humerus, but I do not see any evidence of that. FAMILY HISTORY: Hypertension. SOCIAL HISTORY: Denies smoking, alcohol or drug use. MEDICATIONS: List is reviewed. ALLERGIES: INCLUDE HYDROCODONE, KETOPROFEN AND PROPOXYPHENE. REVIEW OF SYSTEMS: Significant for some pain in the right humerus area and sometimes some confusion, disorientation and memory difficulties and overall weakness and some joint stiffness that are all somewhat chronic. PHYSICAL EXAMINATION: A pleasant, cooperative 87-year-old female. She does have obvious deformity to her right mid shaft humerus. It does not appear to be grossly unstable; however, very angulated and a clamshell brace that she had on the humerus, the portion designed to be on the medial aspect was actually clamped along the lateral aspect with the lateral portion of the clamshell and she had obvious deformity with no compromise of her skin. She does have good range of motion, normal stability of bilateral elbows, minimal motion of the right shoulder, more limited than the left and normal alignment stability of bilateral wrists, some mild swelling in the right upper extremity, but she can flex and extend the fingers on both hands without difficulty. No hip, knee or ankle joint malalignment or tenderness. IMAGING: X-rays show a midshaft right humerus fracture with significant angulation and callus formation. She had had better alignment previously on previous x-ray views going back several weeks and this is markedly worse and more angulated showing some displacement. IMPRESSION: Right humerus fracture with malalignment and potential malunion. TREATMENT PLAN: I discussed with her and her family the treatment options. We could accept what alignment there is or undergo possible closed reduction and reapplication of her clamshell brace. I did indicate that the major risk of a closed reduction procedure is the possibility of radial nerve stretching and potential damage that may affect her ability to at least temporarily or possibly permanently extend her wrist or fingers and sensation over the radial nerve distribution, radial side dorsal on the hand. We talked through the relative risks of both approaches. The family did want this corrected as well as possible and we decided on closed reduction procedure, which will occur today with sedation provided by Anesthesia. MIKE SORENSON MD DR: ALICIA/ale JOB#: [id number] / [id number]
[2018-10-01 19:00] VITALS: BP 141/84
[2018-10-01] MEDS: traMADol 50 MG TABLET PO PRN (20:47)
[2018-10-01] MEDS: PATCH REMOVAL. MC SCH (20:55)
[2018-10-01 23:00] VITALS: BP 136/75
[2018-10-02] MEDS: oxyCODONE/APAP 5/325 1 TAB TABLET PO PRN ×2 (02:57→08:35)
[2018-10-02 03:00] VITALS: BP_SYST 124; BP_DIAS 78; BP_DIAS 80
[2018-10-02 07:00] VITALS: BP 126/72
[2018-10-02] MEDS: FAMOTIDINE 20 MG TABLET. PO SCH (08:34)
[2018-10-02] MEDS: IMIPRAMINE 25 MG TABLET PO SCH (08:34)
[2018-10-02] MEDS: LIDOCAINE (700MG/PATCH) PATCH. TD SCH (08:34)
[2018-10-02] MEDS: hydroCHLOROthiazide 25 MG TABLET PO SCH (08:34)
[2018-10-02] MEDS: MULTIVITAMIN with MINERAL TABLET. PO SCH (08:35)
[2018-10-02] MEDS: METOPROLOL TART IMMED RELEASE 25 MG TABLET. PO SCH ×2 (08:35→21:52)
[2018-10-02] MEDS: CHOLECALCIFEROL (VITAMIN D3) 1,000 UNIT TABLET PO SCH (08:35)
--- NOTE | 2018-10-02 10:09 | NUR ---
Patient is refusing to be turned. Multiple attempts have been made this am to try and off load some pressure off the patient's back, but patient keeps moving herself off the wedge when turned.
--- NOTE | 2018-10-02 10:31 | PDOC ---
PROGRESS NOTES Chief Complaint Chief Complaint r arm pain Healing displaced right humeral midshaft fracture with increasing angulation at the fracture site relative to the prior exam. dementia htn, chronic diastolic CHF asthma History of Present Illness History of Present Illness neck pain and back pain refused turns at night, up to chair this AM, looks better than yesterday surg 2 days stable otherwise Vitals Vitals Vital Signs Date Time Temp Pulse Resp B/P (MAP) Pulse Ox O2 Delivery O2 Flow Rate FiO2 10/02/18 08:35 79 126/72 10/02/18 08:00 Room Air 2.0 10/02/18 07:00 97.9 14 94 97.9 Physical Exam General: Alert, Cooperative, No acute distress, Other (disoriented, family here to asssit) Lungs: Clear Abdomen: Normal bowel sounds, Soft Extremities: No clubbing, Normal pulses, Other (right arm very painful to move or touch) Skin: No breakdown, No significant lesion Comment Review of Relevant I have reviewed the following items timoteo (where applicable) has been applied. Labs Microbiology 09/29/18 Urine Culture - Final, Complete 09/29/18 Urine Culture Result 1 (ALMA) - Final, Complete Medications Current Medications Acetaminophen (Tylenol) 650 mg PRN Q4HRS PRN PO MILD PAIN 1-3; Start 09/29/18 at 21:00 Bisacodyl (Dulcolax Tab) 10 mg PRN DAILY PRN PO CONSTIPATION 2ND CHOICE; Start 09/29/18 at 21:00 Vitamin D (Vitamin D3) 3,000 unit DAILY PO Last administered on 10/02/18at 08:35; Start 09/30/18 at 09:00 Docusate Sodium (Colace) 100 mg PRN BID PRN PO CONSTIPATION 1ST CHOICE Last administered on 09/29/18at 21:45; Start 09/29/18 at 21:00 Fluticasone Propionate (Flonase) 2 spray PRN DAILY PRN NS ALLERGIES; Start 09/29/18 at 21:00 Hydrochlorothiazide (Hydrodiuril) 25 mg DAILY PO Last administered on 10/02/18at 08:35; Start 09/30/18 at 09:00 Metoprolol Tartrate (Lopressor) 25 mg BID PO Last administered on 10/02/18at 08:35; Start 09/29/18 at 21:00 Senna/Docusate Sodium (Senna Plus) 1 tab PRN DAILY PRN PO CONSTIPATION 3RD CHOICE; Start 09/29/18 at 21:00 Tramadol HCl (Ultram) 25 mg PRN BID PRN PO MODERATE PAIN 4-6 Last administered on 10/01/18at 20:55; Start 09/29/18 at 21:00 Imipramine HCl (Tofranil) 12.5 mg DAILY PO Last administered on 10/02/18at 08:35; Start 09/30/18 at 09:00 Cetirizine HCl (ZyrTEC) 10 mg PRN DAILY PRN PO ALLERGIES; Start 09/30/18 at 09 :00 Multi-Ingredient Ointment (Analgesic [place]) 1 jose PRN QID PRN TP MUSCLE PAIN; Start 09/29/18 at 21:15 Multivitamins (Thera M Plus) 1 tab DAILY PO Last administered on 10/02/18at 08:35; Start 09/30/18 at 09:00 Famotidine (Pepcid) 20 mg DAILY PO Last administered on 10/02/18at 08:35; Start 09/30/18 at 09:00 Oxycodone/ Acetaminophen (Percocet 5/325) 1 tab PRN Q4HRS PRN PO SEVERE PAIN 7- 10 Last administered on 10/02/18at 08:35; Start 09/29/18 at 21:00 Ondansetron HCl (Zofran) 4 mg PRN Q6HRS PRN IV NAUSEA/VOMITING; Start 09/30/18 at 16:15; Stop 09/30/18 at 22:00; Status DC Fentanyl Citrate (Fentanyl 2ml Vial) 25 mcg PRN Q5MIN PRN IV MILD PAIN 1-3; Start 09/30/18 at 16:15; Stop 09/30/18 at 22:00; Status DC Fentanyl Citrate (Fentanyl 2ml Vial) 50 mcg PRN Q5MIN PRN IV MODERATE TO SEVERE PAIN; Start 09/30/18 at 16:15; Stop 09/30/18 at 22:00; Status DC Ringer's Solution 1,000 ml @ 30 mls/hr Q24H IV Last administered on 09/30/18at 16:26; Start 09/30/18 at 16:02; Stop 10/01/18 at 04:01; Status DC Prochlorperazine Edisylate (Compazine) 5 mg PACU PRN PRN IV NAUSEA, MRX1; Start 09/30/18 at 16:15; Stop 09/30/18 at 22:00; Status DC Propofol 20 ml @ As Directed STK-MED ONCE IV ; Start 09/30/18 at 16:02; Stop 09/30/18 at 16:03; Status DC Lidocaine (Lidoderm) 1 patch DAILY TD Last administered on 10/02/18at 08:35; Start 10/01/18 at 15:00 Miscellaneous (Lidoderm Patch Removal) 1 ea QHS MC Last administered on 10/01/18at 20:55; Start 10/01/18 at 21:00 Active Scripts Active Enoxaparin Sodium 40 Mg/0.4 Ml Disp.syrin 40 Mg SQ DAILY Colace (Docusate Sodium) 100 Mg Capsule 100 Mg PO PRN BID PRN Tramadol Hcl 50 Mg Tablet 25 Mg PO BID PRN Reported Imipramine Hcl 10 Mg Tablet 10 Mg PO DAILY Senna Plus Tablet (Sennosides/Docusate Sodium) 1 Each Tablet 1 Each PO DAILY PRN Fluticasone Propionate Nasal [place] (Fluticasone Propionate) 16 Gm [place].susp 2 [place] NS DAILY PRN MDD daily Loratadine 10 Mg Tablet 1 Tab PO DAILY PRN MDD daily Dulcolax (Bisacodyl) 5 Mg Tablet.dr 10 Mg PO PRN DAILY PRN Biofreeze (Menthol) 118 Ml Gel..ml. 118 Ml TP Q2HR W/A Tylenol (Acetaminophen) 325 Mg Tablet 2 Tab PO PRN Q4HRS PRN Vitamin D3 (Cholecalciferol (Vitamin D3)) 1,000 Unit Tablet 3 Tab PO DAILY Thera-Tabs M Caplet (Multivits,Ca,Minerals/Iron/Fa) 1 Each Tablet 1 Each PO DAILY Ranitidine Hcl 150 Mg Tablet 150 Mg PO DAILY Metoprolol Tartrate 25 Mg Tablet 1 Tab PO BID Hydrochlorothiazide Tablet (Hydrochlorothiazide) 25 Mg Tablet 25 Mg PO DAILY Calcium 600 + Vit D 200 Tablet (Calcium Carbonate/Vitamin D3) 1 Each Tablet 1 Each PO DAILY Aspirin 81 Mg Tab.chew 1 Tab PO DAILY Alendronate Sodium 70 Mg Tablet 1 Tab PO WEEKLY Vitals/I & O Vital Sign - Last 24 Hours 10/01/18 10/01/18 10/01/18 8/17/19 10:37 11:00 15:00 19:00 Temp 97.6 97.6 98.3 97.6 97.6 98.3 Pulse 72 80 88 Resp 18 18 18 B/P (MAP) 125/68 (87) 116/65 (82) 141/84 (103) Pulse Ox 96 93 93 O2 Delivery Room Air Room Air Room Air Room Air 10/01/18 10/01/18 10/01/18 10/01/18 20:24 20:55 20:55 21:47 Pulse 80 Resp 16 16 B/P (MAP) 116/65 O2 Delivery Room Air Room Air Room Air 10/01/18 10/02/18 10/02/18 10/02/18 23:00 02:57 03:00 04:24 Temp 99.1 98.6 99.1 98.6 Pulse 89 80 Resp 18 16 18 13 B/P (MAP) 136/75 (95) 124/80 (95) Pulse Ox 94 96 O2 Delivery Room Air Room Air Room Air Room Air 10/02/18 10/02/18 10/02/18 07:00 08:00 08:35 Temp 97.9 97.9 Pulse 79 79 Resp 14 B/P (MAP) 126/72 (90) 126/72 Pulse Ox 94 O2 Delivery Room Air Room Air O2 Flow Rate 2.0 DADA HEMPHILL MD Oct 02, 2018 10:31
[2018-10-02 11:00] VITALS: BP 120/65
[2018-10-02] MEDS: traMADol 50 MG TABLET PO PRN (11:00)
[2018-10-02 15:00] VITALS: BP 126/72
[2018-10-02 19:00] VITALS: BP 136/76
[2018-10-02] MEDS: PATCH REMOVAL. MC SCH (21:00)
[2018-10-02] MEDS: ACETAMINOPHEN 325 MG TABLET. PO PRN (21:51)
[2018-10-02 23:00] VITALS: BP 118/70
[2018-10-03 03:00] VITALS: BP 118/59
[2018-10-03] MEDS: traMADol 50 MG TABLET PO PRN ×2 (03:50→21:18)
[2018-10-03 07:00] VITALS: BP 125/65
[2018-10-03] MEDS: LIDOCAINE (700MG/PATCH) PATCH. TD SCH (08:50)
[2018-10-03] MEDS: FAMOTIDINE 20 MG TABLET. PO SCH (08:51)
[2018-10-03] MEDS: METOPROLOL TART IMMED RELEASE 25 MG TABLET. PO SCH ×2 (08:51→21:18)
[2018-10-03] MEDS: CHOLECALCIFEROL (VITAMIN D3) 1,000 UNIT TABLET PO SCH (08:51)
[2018-10-03] MEDS: MULTIVITAMIN with MINERAL TABLET. PO SCH (08:52)
[2018-10-03] MEDS: hydroCHLOROthiazide 25 MG TABLET PO SCH (08:53)
[2018-10-03] MEDS: IMIPRAMINE 25 MG TABLET PO SCH (08:53)
--- NOTE | 2018-10-03 10:39 | PDOC ---
PROGRESS NOTES Chief Complaint Chief Complaint r arm pain Healing displaced right humeral midshaft fracture with increasing angulation at the fracture site relative to the prior exam. dementia htn, chronic diastolic CHF asthma History of Present Illness History of Present Illness neck pain and back pain refused turns at night, up to chair this AM, surg 3 days 27 MIN PT EXAM, CHART REVIEW, > 50% OF TIME SPENT WITH EXAM, CHART REVIEW, PT CARE COORDINATION Vitals Vitals Vital Signs Date Time Temp Pulse Resp B/P (MAP) Pulse Ox O2 Delivery O2 Flow Rate FiO2 10/03/18 08:53 77 125/65 10/03/18 07:40 Room Air 2.0 10/03/18 07:00 98.1 16 93 98.1 Physical Exam General: Alert, Cooperative, No acute distress, Other (disoriented, family here to asssit) Heart: Regular rate Lungs: Clear Abdomen: Normal bowel sounds, Soft Extremities: No clubbing, Normal pulses, Other (right arm very painful to move or touch) Skin: No breakdown, No significant lesion Labs LABS STATUS: ADM IN TLOC: SPEC #: [id number] ENMANUEL: 09/29/18 STATUS: COMP REQ #: [id number] RECD: 09/29/[address] [facility] DR: DADA HEMPHILL MD SOURCE: URINE CC ENTR: 09/29/18 [facility] DR: CHANTE MENA II, MD SPDESC: UNKNOWN PCP NAME ORDERED: URINE CULTURE Procedure Result URINE CULTURE Final Final report URINE CULTURE RES 1 Final Lactobacillus species 25,000-50,000 colony forming units per mL Susceptibility not normally performed on this organism. Performed at: - [facility] [address], [place], [place] [id number] Handbag Finisher: INGRID Tolbert MD, Phone: [phone] AP and lateral views of the right humerus with comparison of 09/29/2018. INDICATION: Evaluate humeral alignment. FINDINGS: There is persistent mild malalignment of the mid transverse humeral fracture. There is bony callus formation consistent with healing identified. Alignment is improved when compared with yesterday's examination. Electronically signed by: Seth Birmingham MD (09/30/2018 3:56 PM) [id number] DICTATED and SIGNED BY: SETH BIRMINGHAM MD DATE: 09/30/18 5416 Assessment and Plan Assessmemt and Plan Problems Medical Problems: (1) Right humeral fracture Status: Acute Comment Review of Relevant I have reviewed the following items timoteo (where applicable) has been applied. Labs Microbiology 09/29/18 Urine Culture - Final, Complete 09/29/18 Urine Culture Result 1 (ALMA) - Final, Complete Medications Current Medications Acetaminophen (Tylenol) 650 mg PRN Q4HRS PRN PO MILD PAIN 1-3 Last administered on 10/02/18at 21:52; Start 09/29/18 at 21:00 Bisacodyl (Dulcolax Tab) 10 mg PRN DAILY PRN PO CONSTIPATION 2ND CHOICE; Start 09/29/18 at 21:00 Vitamin D (Vitamin D3) 3,000 unit DAILY PO Last administered on 10/03/18at 0 8:53; Start 09/30/18 at 09:00 Docusate Sodium (Colace) 100 mg PRN BID PRN PO CONSTIPATION 1ST CHOICE Last administered on 09/29/18at 21:45; Start 09/29/18 at 21:00 Fluticasone Propionate (Flonase) 2 spray PRN DAILY PRN NS ALLERGIES; Start 09/29/18 at 21:00 Hydrochlorothiazide (Hydrodiuril) 25 mg DAILY PO Last administered on 10/03/18 08:53; Start 09/30/18 at 09:00 Metoprolol Tartrate (Lopressor) 25 mg BID PO Last administered on 10/03/18 08:53; Start 09/29/18 at 21:00 Senna/Docusate Sodium (Senna Plus) 1 tab PRN DAILY PRN PO CONSTIPATION 3RD CHOICE; Start 09/29/18 at 21:00 Tramadol HCl (Ultram) 25 mg PRN BID PRN PO MODERATE PAIN 4-6 Last administered on 10/03/18 03:50; Start 09/29/18 at 21:00 Imipramine HCl (Tofranil) 12.5 mg DAILY PO Last administered on 10/03/18 08:53; Start 09/30/18 at 09:00 Cetirizine HCl (ZyrTEC) 10 mg PRN DAILY PRN PO ALLERGIES; Start 09/30/18 at 09: 00 Multi-Ingredient Ointment (Analgesic [place]) 1 jose PRN QID PRN TP MUSCLE PAIN; Start 09/29/18 at 21:15 Multivitamins (Thera M Plus) 1 tab DAILY PO Last administered on 10/03/18 08:53; Start 09/30/18 at 09:00 Famotidine (Pepcid) 20 mg DAILY PO Last administered on 10/03/18 08:53; Start 09/30/18 at 09:00 Oxycodone/ Acetaminophen (Percocet 5/325) 1 tab PRN Q4HRS PRN PO SEVERE PAIN 7- 10 Last administered on 10/02/18 08:35; Start 09/29/18 at 21:00 Ondansetron HCl (Zofran) 4 mg PRN Q6HRS PRN IV NAUSEA/VOMITING; Start 09/30/18 at 16:15; Stop 09/30/18 at 22:00; Status DC Fentanyl Citrate (Fentanyl 2ml Vial) 25 mcg PRN Q5MIN PRN IV MILD PAIN 1-3; Start 09/30/18 at 16:15; Stop 09/30/18 at 22:00; Status DC Fentanyl Citrate (Fentanyl 2ml Vial) 50 mcg PRN Q5MIN PRN IV MODERATE TO SEVERE PAIN; Start 09/30/18 at 16:15; Stop 09/30/18 at 22:00; Status DC Ringer's Solution 1,000 ml @ 30 mls/hr Q24H IV Last administered on 09/30/18at 16:26; Start 09/30/18 at 16:02; Stop 10/01/18 at 04:01; Status DC Prochlorperazine Edisylate (Compazine) 5 mg PACU PRN PRN IV NAUSEA, MRX1; Start 09/30/18 at 16:15; Stop 09/30/18 at 22:00; Status DC Propofol 20 ml @ As Directed STK-MED ONCE IV ; Start 09/30/18 at 16:02; Stop 09/30/18 at 16:03; Status DC Lidocaine (Lidoderm) 1 patch DAILY TD Last administered on 10/03/18at 08:53; Start 10/01/18 at 15:00 Miscellaneous (Lidoderm Patch Removal) 1 ea QHS MC Last administered on 10/02/18at 21:52; Start 10/01/18 at 21:00 Active Scripts Active Enoxaparin Sodium 40 Mg/0.4 Ml Disp.syrin 40 Mg SQ DAILY Colace (Docusate Sodium) 100 Mg Capsule 100 Mg PO PRN BID PRN Tramadol Hcl 50 Mg Tablet 25 Mg PO BID PRN Reported Imipramine Hcl 10 Mg Tablet 10 Mg PO DAILY Senna Plus Tablet (Sennosides/Docusate Sodium) 1 Each Tablet 1 Each PO DAILY PRN Fluticasone Propionate Nasal [place] (Fluticasone Propionate) 16 Gm [place].susp 2 [place] NS DAILY PRN MDD daily Loratadine 10 Mg Tablet 1 Tab PO DAILY PRN MDD daily Dulcolax (Bisacodyl) 5 Mg Tablet.dr 10 Mg PO PRN DAILY PRN Biofreeze (Menthol) 118 Ml Gel..ml. 118 Ml TP Q2HR W/A Tylenol (Acetaminophen) 325 Mg Tablet 2 Tab PO PRN Q4HRS PRN Vitamin D3 (Cholecalciferol (Vitamin D3)) 1,000 Unit Tablet 3 Tab PO DAILY Thera-Tabs M Caplet (Multivits,Ca,Minerals/Iron/Fa) 1 Each Tablet 1 Each PO DAILY Ranitidine Hcl 150 Mg Tablet 150 Mg PO DAILY Metoprolol Tartrate 25 Mg Tablet 1 Tab PO BID Hydrochlorothiazide Tablet (Hydrochlorothiazide) 25 Mg Tablet 25 Mg PO DAILY Calcium 600 + Vit D 200 Tablet (Calcium Carbonate/Vitamin D3) 1 Each Tablet 1 Each PO DAILY Aspirin 81 Mg Tab.chew 1 Tab PO DAILY Alendronate Sodium 70 Mg Tablet 1 Tab PO WEEKLY Vitals/I & O Vital Sign - Last 24 Hours 10/02/18 10/02/18 10/02/18 10/02/18 11:00 11:00 12:03 15:00 Temp 97.9 97.7 97.9 97.7 Pulse 81 82 Resp 14 14 B/P (MAP) 120/65 (83) 126/72 (90) Pulse Ox 94 94 94 93 O2 Delivery Room Air Room Air Room Air Room Air O2 Flow Rate 2.0 2.0 10/02/18 10/02/18 10/02/18 10/02/18 15:00 19:00 19:30 21:52 Temp 97.7 98.0 97.7 98.0 Pulse 82 85 92 Resp 14 20 B/P (MAP) 126/72 (90) 136/76 (96) 110/63 Pulse Ox 93 94 O2 Delivery Room Air Room Air Room Air 10/02/18 10/03/18 10/03/18 10/03/18 23:00 03:00 03:50 05:17 Temp 97.9 98.1 97.9 98.1 Pulse 91 80 Resp 16 18 16 16 B/P (MAP) 118/70 (86) 118/59 (78) Pulse Ox 96 94 O2 Delivery Room Air Room Air Room Air Room Air 10/03/18 10/03/18 10/03/18 07:00 07:40 08:53 Temp 98.1 98.1 Pulse 77 77 Resp 16 B/P (MAP) 125/65 (85) 125/65 Pulse Ox 93 O2 Delivery Room Air Room Air O2 Flow Rate 2.0 Intake and Output 10/02/18 10/02/18 10/03/18 14:59 22:59 06:59 Intake Total 75 ml 450 ml 170 ml Balance 75 ml 450 ml 170 ml ARMAND COYNE MD Oct 03, 2018 10:39
[2018-10-03 11:00] VITALS: BP 141/72
[2018-10-03 12:41] LABS: BASO # 0.1 x10^3/uL (0.0-0.2); BASO % 1 % (0-3); EOS # 0.1 x10^3/uL (0.0-0.7); EOS % 2 % (0-3); HEMATOCRIT 35.8 % (36.0-47.0); LYMPH # 2.6 x10^3/uL (1.0-4.8); LYMPH % 43 % (24-48); MEAN CORPUSCULAR HEMOGLOBIN 32 pg (25-35); MEAN CORPUSCULAR HGB CONC 34 g/dL (31-37); MEAN CORPUSCULAR VOLUME 95 fL (79-100); MONO # 0.5 x10^3/uL (0.0-1.1); MONO % 9 % (0-9); NEUT # 2.9 x10^3/uL (1.8-7.7); NEUT % 47 % (31-73); PLATELET COUNT 334 x10^3/uL (140-400); RED BLOOD COUNT 3.77 x10^6/uL (3.50-5.40); RED CELL DISTRIBUTION WIDTH 15.6 % (11.5-14.5); WHITE BLOOD COUNT 6.1 x10^3/uL (4.0-11.0)
--- NOTE | 2018-10-03 12:44 | NUR ---
SS following up with discharge planning. Pt is currently on room air. PT/OT recommended retirement unit at discharge. SS met with pt to discuss retirement unit and discharge planning. Pt agreeable to retirement unit and requested that referral be phoned and faxed to [facility], ; fax [phone]. SS phoned and faxed referral. SS will await acceptance decision and will proceed accordingly with discharge planning.
[2018-10-03 12:54] LABS: ALBUMIN 3.5 g/dL (3.4-5.0); CREATININE 0.7 mg/dL (0.6-1.0); TOTAL BILIRUBIN 0.6 mg/dL (0.2-1.0)
--- NOTE | 2018-10-03 12:56 | NUR ---
SS following up with discharge planning. SS spoke with pt's son, Crispin Bobo, , via phone in regards to discharge planning. Pt's son reported that he wants pt to return to [facility] at discharge. SS notified [facility]. SS will continue to follow for discharge planning.
[2018-10-03 15:00] VITALS: BP 114/65
[2018-10-03] MEDS: ACETAMINOPHEN 325 MG TABLET. PO PRN (18:00)
[2018-10-03 19:00] VITALS: BP 141/77
[2018-10-03] MEDS: PATCH REMOVAL. MC SCH (21:00)
[2018-10-03 23:00] VITALS: BP 116/70
[2018-10-04 03:00] VITALS: BP 154/83
[2018-10-04 07:00] VITALS: BP 105/58
[2018-10-04] MEDS: MULTIVITAMIN with MINERAL TABLET. PO SCH (08:05)
[2018-10-04] MEDS: FAMOTIDINE 20 MG TABLET. PO SCH (08:05)
[2018-10-04] MEDS: hydroCHLOROthiazide 25 MG TABLET PO SCH (08:06)
[2018-10-04] MEDS: CHOLECALCIFEROL (VITAMIN D3) 1,000 UNIT TABLET PO SCH (08:06)
[2018-10-04] MEDS: IMIPRAMINE 25 MG TABLET PO SCH (08:06)
[2018-10-04] MEDS: LIDOCAINE (700MG/PATCH) PATCH. TD SCH (08:09)
[2018-10-04] MEDS: METOPROLOL TART IMMED RELEASE 25 MG TABLET. PO SCH (09:00)
[2018-10-04] MEDS: oxyCODONE/APAP 5/325 1 TAB TABLET PO PRN (10:53)
--- NOTE | 2018-10-04 10:53 | PDOC ---
PROGRESS NOTES Chief Complaint Chief Complaint discharge dx r arm pain Healing displaced right humeral midshaft fracture with increasing angulation at the fracture site relative to the prior exam. dementia htn, chronic diastolic CHF asthma History of Present Illness History of Present Illness neck pain and back pain refused turns at night, up to chair prn, surg 3 days 37 MIN PT EXAM, CHART REVIEW d/c planning time , > 50% OF TIME SPENT WITH EXAM, CHART REVIEW, PT CARE COORDINATION Vitals Vitals Vital Signs Date Time Temp Pulse Resp B/P (MAP) Pulse Ox O2 Delivery O2 Flow Rate FiO2 10/04/18 08:00 Room Air 10/04/18 07:00 98.0 71 16 105/58 (74) 98 98.0 10/03/18 07:40 2.0 Physical Exam General: Alert, Cooperative, No acute distress, Other (disoriented, family here to asssit) Heart: Regular rate, Normal S1 Lungs: Clear Abdomen: Normal bowel sounds, Soft Extremities: No clubbing, Normal pulses, Other (right arm very painful to move or touch) Skin: No breakdown, No significant lesion Labs LABS Laboratory Tests Test 10/03/18 12:05 White Blood Count 6.1 x10^3/uL (4.0-11.0) Red Blood Count 3.77 x10^6/uL (3.50-5.40) Hemoglobin 12.0 g/dL (12.0-15.5) Hematocrit 35.8 % (36.0-47.0) Mean Corpuscular Volume 95 fL (79-100) Mean Corpuscular Hemoglobin 32 pg (25-35) Mean Corpuscular Hemoglobin Concent 34 g/dL (31-37) Red Cell Distribution Width 15.6 % (11.5-14.5) Platelet Count 334 x10^3/uL (140-400) Neutrophils (%) (Auto) 47 % (31-73) Lymphocytes (%) (Auto) 43 % (24-48) Monocytes (%) (Auto) 9 % (0-9) Eosinophils (%) (Auto) 2 % (0-3) Basophils (%) (Auto) 1 % (0-3) Neutrophils # (Auto) 2.9 x10^3/uL (1.8-7.7) Lymphocytes # (Auto) 2.6 x10^3/uL (1.0-4.8) Monocytes # (Auto) 0.5 x10^3/uL (0.0-1.1) Eosinophils # (Auto) 0.1 x10^3/uL (0.0-0.7) Basophils # (Auto) 0.1 x10^3/uL (0.0-0.2) Sodium Level 132 mmol/L (136-145) Potassium Level 3.0 mmol/L (3.5-5.1) Chloride Level 96 mmol/L (98-107) Carbon Dioxide Level 25 mmol/L (21-32) Anion Gap 11 (6-14) Blood Urea Nitrogen 17 mg/dL (7-20) Creatinine 0.7 mg/dL (0.6-1.0) Estimated GFR (Cockcroft-Gault) 79.0 BUN/Creatinine Ratio 24 (6-20) Glucose Level 114 mg/dL (70-99) Calcium Level 9.0 mg/dL (8.5-10.1) Total Bilirubin 0.6 mg/dL (0.2-1.0) Aspartate Amino Transf (AST/SGOT) 21 U/L (15-37) Alanine Aminotransferase (ALT/SGPT) 25 U/L (14-59) Alkaline Phosphatase 119 U/L (46-116) Total Protein 7.0 g/dL (6.4-8.2) Albumin 3.5 g/dL (3.4-5.0) Albumin/Globulin Ratio 1.0 (1.0-1.7) Assessment and Plan Assessmemt and Plan Problems Medical Problems: (1) Right humeral fracture Status: Acute Comment Review of Relevant I have reviewed the following items timoteo (where applicable) has been applied. Labs Laboratory Tests Test 10/03/18 12:05 White Blood Count 6.1 x10^3/uL (4.0-11.0) Red Blood Count 3.77 x10^6/uL (3.50-5.40) Hemoglobin 12.0 g/dL (12.0-15.5) Hematocrit 35.8 % (36.0-47.0) Mean Corpuscular Volume 95 fL (79-100) Mean Corpuscular Hemoglobin 32 pg (25-35) Mean Corpuscular Hemoglobin Concent 34 g/dL (31-37) Red Cell Distribution Width 15.6 % (11.5-14.5) Platelet Count 334 x10^3/uL (140-400) Neutrophils (%) (Auto) 47 % (31-73) Lymphocytes (%) (Auto) 43 % (24-48) Monocytes (%) (Auto) 9 % (0-9) Eosinophils (%) (Auto) 2 % (0-3) Basophils (%) (Auto) 1 % (0-3) Neutrophils # (Auto) 2.9 x10^3/uL (1.8-7.7) Lymphocytes # (Auto) 2.6 x10^3/uL (1.0-4.8) Monocytes # (Auto) 0.5 x10^3/uL (0.0-1.1) Eosinophils # (Auto) 0.1 x10^3/uL (0.0-0.7) Basophils # (Auto) 0.1 x10^3/uL (0.0-0.2) Sodium Level 132 mmol/L (136-145) Potassium Level 3.0 mmol/L (3.5-5.1) Chloride Level 96 mmol/L (98-107) Carbon Dioxide Level 25 mmol/L (21-32) Anion Gap 11 (6-14) Blood Urea Nitrogen 17 mg/dL (7-20) Creatinine 0.7 mg/dL (0.6-1.0) Estimated GFR (Cockcroft-Gault) 79.0 BUN/Creatinine Ratio 24 (6-20) Glucose Level 114 mg/dL (70-99) Calcium Level 9.0 mg/dL (8.5-10.1) Total Bilirubin 0.6 mg/dL (0.2-1.0) Aspartate Amino Transf (AST/SGOT) 21 U/L (15-37) Alanine Aminotransferase (ALT/SGPT) 25 U/L (14-59) Alkaline Phosphatase 119 U/L (46-116) Total Protein 7.0 g/dL (6.4-8.2) Albumin 3.5 g/dL (3.4-5.0) Albumin/Globulin Ratio 1.0 (1.0-1.7) Laboratory Tests Test 10/03/18 12:05 White Blood Count 6.1 x10^3/uL (4.0-11.0) Red Blood Count 3.77 x10^6/uL (3.50-5.40) Hemoglobin 12.0 g/dL (12.0-15.5) Hematocrit 35.8 % (36.0-47.0) Mean Corpuscular Volume 95 fL (79-100) Mean Corpuscular Hemoglobin 32 pg (25-35) Mean Corpuscular Hemoglobin Concent 34 g/dL (31-37) Red Cell Distribution Width 15.6 % (11.5-14.5) Platelet Count 334 x10^3/uL (140-400) Neutrophils (%) (Auto) 47 % (31-73) Lymphocytes (%) (Auto) 43 % (24-48) Monocytes (%) (Auto) 9 % (0-9) Eosinophils (%) (Auto) 2 % (0-3) Basophils (%) (Auto) 1 % (0-3) Neutrophils # (Auto) 2.9 x10^3/uL (1.8-7.7) Lymphocytes # (Auto) 2.6 x10^3/uL (1.0-4.8) Monocytes # (Auto) 0.5 x10^3/uL (0.0-1.1) Eosinophils # (Auto) 0.1 x10^3/uL (0.0-0.7) Basophils # (Auto) 0.1 x10^3/uL (0.0-0.2) Sodium Level 132 mmol/L (136-145) Potassium Level 3.0 mmol/L (3.5-5.1) Chloride Level 96 mmol/L (98-107) Carbon Dioxide Level 25 mmol/L (21-32) Anion Gap 11 (6-14) Blood Urea Nitrogen 17 mg/dL (7-20) Creatinine 0.7 mg/dL (0.6-1.0) Estimated GFR (Cockcroft-Gault) 79.0 BUN/Creatinine Ratio 24 (6-20) Glucose Level 114 mg/dL (70-99) Calcium Level 9.0 mg/dL (8.5-10.1) Total Bilirubin 0.6 mg/dL (0.2-1.0) Aspartate Amino Transf (AST/SGOT) 21 U/L (15-37) Alanine Aminotransferase (ALT/SGPT) 25 U/L (14-59) Alkaline Phosphatase 119 U/L (46-116) Total Protein 7.0 g/dL (6.4-8.2) Albumin 3.5 g/dL (3.4-5.0) Albumin/Globulin Ratio 1.0 (1.0-1.7) Microbiology 09/29/18 Urine Culture - Final, Complete 09/29/18 Urine Culture Result 1 (ALMA) - Final, Complete Medications Current Medications Acetaminophen (Tylenol) 650 mg PRN Q4HRS PRN PO MILD PAIN 1-3 Last administered on 10/03/18 18:00; Start 09/29/18 at 21:00 Bisacodyl (Dulcolax Tab) 10 mg PRN DAILY PRN PO CONSTIPATION 2ND CHOICE; Start 09/29/18 at 21:00 Vitamin D (Vitamin D3) 3,000 unit DAILY PO Last administered on 10/04/18 08:09; Start 09/30/18 at 09:00 Docusate Sodium (Colace) 100 mg PRN BID PRN PO CONSTIPATION 1ST CHOICE Last administered on 09/29/18 21:45; Start 09/29/18 at 21:00 Fluticasone Propionate (Flonase) 2 spray PRN DAILY PRN NS ALLERGIES; Start 09/29/18 at 21:00 Hydrochlorothiazide (Hydrodiuril) 25 mg DAILY PO Last administered on 10/04/18 08:09; Start 09/30/18 at 09:00 Metoprolol Tartrate (Lopressor) 25 mg BID PO Last administered on 10/03/18 21:18; Start 09/29/18 at 21:00 Senna/Docusate Sodium (Senna Plus) 1 tab PRN DAILY PRN PO CONSTIPATION 3RD CHOICE; Start 09/29/18 at 21:00 Tramadol HCl (Ultram) 25 mg PRN BID PRN PO MODERATE PAIN 4-6 Last administered on 10/03/18 21:18; Start 09/29/18 at 21:00 Imipramine HCl (Tofranil) 12.5 mg DAILY PO Last administered on 10/04/18 08:09; Start 09/30/18 at 09:00 Cetirizine HCl (ZyrTEC) 10 mg PRN DAILY PRN PO ALLERGIES; Start 09/30/18 at 09:00 Multi-Ingredient Ointment (Analgesic [place]) 1 jose PRN QID PRN TP MUSCLE PAIN Last administered on 10/03/18at 21:18; Start 09/29/18 at 21:15 Multivitamins (Thera M Plus) 1 tab DAILY PO Last administered on 10/04/18at 08:09; Start 09/30/18 at 09:00 Famotidine (Pepcid) 20 mg DAILY PO Last administered on 10/04/18at 08:09; Start 09/30/18 at 09:00 Oxycodone/ Acetaminophen (Percocet 5/325) 1 tab PRN Q4HRS PRN PO SEVERE PAIN 7- 10 Last administered on 10/02/18at 08:35; Start 09/29/18 at 21:00 Ondansetron HCl (Zofran) 4 mg PRN Q6HRS PRN IV NAUSEA/VOMITING; Start 09/30/18 at 16:15; Stop 09/30/18 at 22:00; Status DC Fentanyl Citrate (Fentanyl 2ml Vial) 25 mcg PRN Q5MIN PRN IV MILD PAIN 1-3; Start 09/30/18 at 16:15; Stop 09/30/18 at 22:00; Status DC Fentanyl Citrate (Fentanyl 2ml Vial) 50 mcg PRN Q5MIN PRN IV MODERATE TO SEVERE PAIN; Start 09/30/18 at 16:15; Stop 09/30/18 at 22:00; Status DC Ringer's Solution 1,000 ml @ 30 mls/hr Q24H IV Last administered on 09/30/18at 16:26; Start 09/30/18 at 16:02; Stop 10/01/18 at 04:01; Status DC Prochlorperazine Edisylate (Compazine) 5 mg PACU PRN PRN IV NAUSEA, MRX1; Start 09/30/18 at 16:15; Stop 09/30/18 at 22:00; Status DC Propofol 20 ml @ As Directed STK-MED ONCE IV ; Start 09/30/18 at 16:02; Stop 09/30/18 at 16:03; Status DC Lidocaine (Lidoderm) 1 patch DAILY TD Last administered on 10/04/18at 08:09; Start 10/01/18 at 15:00 Miscellaneous (Lidoderm Patch Removal) 1 ea QHS MC Last administered on 10/03/18at 21:18; Start 10/01/18 at 21:00 Active Scripts Active Enoxaparin Sodium 40 Mg/0.4 Ml Disp.syrin 40 Mg SQ DAILY Colace (Docusate Sodium) 100 Mg Capsule 100 Mg PO PRN BID PRN Tramadol Hcl 50 Mg Tablet 25 Mg PO BID PRN Reported Imipramine Hcl 10 Mg Tablet 10 Mg PO DAILY Senna Plus Tablet (Sennosides/Docusate Sodium) 1 Each Tablet 1 Each PO DAILY PRN Fluticasone Propionate Nasal [place] (Fluticasone Propionate) 16 Gm [place].susp 2 S [place] NS DAILY PRN MDD daily Loratadine 10 Mg Tablet 1 Tab PO DAILY PRN MDD daily Dulcolax (Bisacodyl) 5 Mg Tablet.dr 10 Mg PO PRN DAILY PRN Biofreeze (Menthol) 118 Ml Gel..ml. 118 Ml TP Q2HR W/A Tylenol (Acetaminophen) 325 Mg Tablet 2 Tab PO PRN Q4HRS PRN Vitamin D3 (Cholecalciferol (Vitamin D3)) 1,000 Unit Tablet 3 Tab PO DAILY Thera-Tabs M Caplet (Multivits,Ca,Minerals/Iron/Fa) 1 Each Tablet 1 Each PO DAILY Ranitidine Hcl 150 Mg Tablet 150 Mg PO DAILY Metoprolol Tartrate 25 Mg Tablet 1 Tab PO BID Hydrochlorothiazide Tablet (Hydrochlorothiazide) 25 Mg Tablet 25 Mg PO DAILY Calcium 600 + Vit D 200 Tablet (Calcium Carbonate/Vitamin D3) 1 Each Tablet 1 Each PO DAILY Aspirin 81 Mg Tab.chew 1 Tab PO DAILY Alendronate Sodium 70 Mg Tablet 1 Tab PO WEEKLY Vitals/I & O Vital Sign - Last 24 Hours 10/03/18 10/03/18 10/03/18 10/03/18 11:00 15:00 19:00 19:30 Temp 97.9 98.1 98.4 97.9 98.1 98.4 Pulse 67 73 81 Resp 18 16 16 B/P (MAP) 141/72 (95) 114/65 (81) 141/77 (98) Pulse Ox 96 100 95 O2 Delivery Room Air Room Air Room Air Room Air 10/03/18 10/03/18 10/03/18 10/03/18 21:18 21:18 22:54 23:00 Temp 97.9 97.9 Pulse 84 70 Resp 16 14 16 B/P (MAP) 135/68 116/70 (85) Pulse Ox 95 95 O2 Delivery Room Air Room Air Room Air 10/04/18 10/04/18 10/04/18 03:00 07:00 08:00 Temp 98.1 98.0 98.1 98.0 Pulse 92 71 Resp 16 16 B/P (MAP) 154/83 (106) 105/58 (74) Pulse Ox 92 98 O2 Delivery Room Air Room Air Room Air Intake and Output 10/03/18 10/03/18 10/04/18 14:59 22:59 06:59 Intake Total 240 ml Balance 240 ml ARMAND COYNE MD Oct 04, 2018 10:53
[2018-10-04 11:00] VITALS: BP 125/68
--- NOTE | 2018-10-04 12:20 | NUR ---
SS following up with discharge planning. Pt accepted at [facility], ; fax [phone]. Physician and pt's RN notified. SS currently awaiting discharge orders for long term unit and will proceed accordingly with discharge planning.
--- NOTE | 2018-10-04 12:52 | PDOC3 ---
Discharge Summary Date of Admission: Sep 29, 2018 Date of Discharge: Oct 04, 2018 Follow-Up: 1-2 days Admitting Diagnosis comment: discharge dx r arm pain Healing displaced right humeral midshaft fracture with increasing angulation at the fracture site relative to the prior exam. dementia htn, chronic diastolic CHF asthma History of Present Illness History of Present Illness neck pain and back pain refused turns at night, up to chair prn, surg 3 days 37 MIN PT EXAM, CHART REVIEW d/c planning time , > 50% OF TIME SPENT WITH EXAM, CHART REVIEW, PT CARE COORDINATION Vitals Vitals Vital Signs Date Time Temp Pulse Resp B/P (MAP) Pulse Ox O2 Delivery O2 Flow Rate FiO2 10/04/18 08:00 Room Air 10/04/18 07:00 98.0 71 16 105/58 (74) 98 98.0 10/03/18 07:40 2.0 Physical Exam General: Alert, Cooperative, No acute distress, Other (disoriented, family here to asssit) Heart: Regular rate, Normal S1 Lungs: Clear Abdomen: Normal bowel sounds, Soft Extremities: No clubbing, Normal pulses, Other (right arm very painful to move or touch) Skin: No breakdown, No significant lesion FINAL DIAGNOSIS Problems Medical Problems: (1) Right humeral fracture Status: Acute Brief Hospital Course Ms. Bobo is a 87 old [sex] who presented with [ humeral fx ] Discharge Medications Current Medications Acetaminophen (Tylenol) 650 mg PRN Q4HRS PRN PO MILD PAIN 1-3 Last administered on 10/03/18at 18:00; Start 09/29/18 at 21:00 Bisacodyl (Dulcolax Tab) 10 mg PRN DAILY PRN PO CONSTIPATION 2ND CHOICE; Start 09/29/18 at 21:00 Vitamin D (Vitamin D3) 3,000 unit DAILY PO Last administered on 10/04/18at 08:09; Start 09/30/18 at 09:00 Docusate Sodium (Colace) 100 mg PRN BID PRN PO CONSTIPATION 1ST CHOICE Last administered on 09/29/18at 21:45; Start 09/29/18 at 21:00 Fluticasone Propionate (Flonase) 2 spray PRN DAILY PRN NS ALLERGIES; Start 09/29/18 at 21:00 Hydrochlorothiazide (Hydrodiuril) 25 mg DAILY PO Last administered on 10/04/18 08:09; Start 09/30/18 at 09:00 Metoprolol Tartrate (Lopressor) 25 mg BID PO Last administered on 10/03/18 21:18; Start 09/29/18 at 21:00 Senna/Docusate Sodium (Senna Plus) 1 tab PRN DAILY PRN PO CONSTIPATION 3RD CHOICE; Start 09/29/18 at 21:00 Tramadol HCl (Ultram) 25 mg PRN BID PRN PO MODERATE PAIN 4-6 Last administered on 10/03/18 21:18; Start 09/29/18 at 21:00 Imipramine HCl (Tofranil) 12.5 mg DAILY PO Last administered on 10/04/18 08:09; Start 09/30/18 at 09:00 Cetirizine HCl (ZyrTEC) 10 mg PRN DAILY PRN PO ALLERGIES; Start 09/30/18 at 09:00 Multi-Ingredient Ointment (Analgesic [place]) 1 jose PRN QID PRN TP MUSCLE PAIN Last administered on 10/03/18 21:18; Start 09/29/18 at 21:15 Multivitamins (Thera M Plus) 1 tab DAILY PO Last administered on 10/04/18 08:09; Start 09/30/18 at 09:00 Famotidine (Pepcid) 20 mg DAILY PO Last administered on 10/04/18 08:09; Start 09/30/18 at 09:00 Oxycodone/ Acetaminophen (Percocet 5/325) 1 tab PRN Q4HRS PRN PO SEVERE PAIN 7- 10 Last administered on 10/04/18at 10:53; Start 09/29/18 at 21:00 Ondansetron HCl (Zofran) 4 mg PRN Q6HRS PRN IV NAUSEA/VOMITING; Start 09/30/18 at 16:15; Stop 09/30/18 at 22:00; Status DC Fentanyl Citrate (Fentanyl 2ml Vial) 25 mcg PRN Q5MIN PRN IV MILD PAIN 1-3; Start 09/30/18 at 16:15; Stop 09/30/18 at 22:00; Status DC Fentanyl Citrate (Fentanyl 2ml Vial) 50 mcg PRN Q5MIN PRN IV MODERATE TO SEVERE PAIN; Start 09/30/18 at 16:15; Stop 09/30/18 at 22:00; Status DC Ringer's Solution 1,000 ml @ 30 mls/hr Q24H IV Last administered on 09/30/18at 16:26; Start 09/30/18 at 16:02; Stop 10/01/18 at 04:01; Status DC Prochlorperazine Edisylate (Compazine) 5 mg PACU PRN PRN IV NAUSEA, MRX1; Start 09/30/18 at 16:15; Stop 09/30/18 at 22:00; Status DC Propofol 20 ml @ As Directed STK-MED ONCE IV ; Start 09/30/18 at 16:02; Stop 09/30/18 at 16:03; Status DC Lidocaine (Lidoderm) 1 patch DAILY TD Last administered on 10/04/18at 08:09; Start 10/01/18 at 15:00 Miscellaneous (Lidoderm Patch Removal) 1 ea QHS MC Last administered on 10/03/18at 21:18; Start 10/01/18 at 21:00 Active Scripts Active Enoxaparin Sodium 40 Mg/0.4 Ml Disp.syrin 40 Mg SQ DAILY Colace (Docusate Sodium) 100 Mg Capsule 100 Mg PO PRN BID PRN Tramadol Hcl 50 Mg Tablet 25 Mg PO BID PRN Reported Imipramine Hcl 10 Mg Tablet 10 Mg PO DAILY Senna Plus Tablet (Sennosides/Docusate Sodium) 1 Each Tablet 1 Each PO DAILY PRN Fluticasone Propionate Nasal [place] (Fluticasone Propionate) 16 Gm [place].susp 2 [place] NS DAILY PRN MDD daily Loratadine 10 Mg Tablet 1 Tab PO DAILY PRN MDD daily Dulcolax (Bisacodyl) 5 Mg Tablet.dr 10 Mg PO PRN DAILY PRN Biofreeze (Menthol) 118 Ml Gel..ml. 118 Ml TP Q2HR W/A Tylenol (Acetaminophen) 325 Mg Tablet 2 Tab PO PRN Q4HRS PRN Vitamin D3 (Cholecalciferol (Vitamin D3)) 1,000 Unit Tablet 3 Tab PO DAILY Thera-Tabs M Caplet (Multivits,Ca,Minerals/Iron/Fa) 1 Each Tablet 1 Each PO DAILY Ranitidine Hcl 150 Mg Tablet 150 Mg PO DAILY Metoprolol Tartrate 25 Mg Tablet 1 Tab PO BID Hydrochlorothiazide Tablet (Hydrochlorothiazide) 25 Mg Tablet 25 Mg PO DAILY Calcium 600 + Vit D 200 Tablet (Calcium Carbonate/Vitamin D3) 1 Each Tablet 1 Each PO DAILY Aspirin 81 Mg Tab.chew 1 Tab PO DAILY Alendronate Sodium 70 Mg Tablet 1 Tab PO WEEKLY Vital Signs Vital Signs Date Time Temp Pulse Resp B/P (MAP) Pulse Ox O2 Delivery O2 Flow Rate FiO2 10/04/18 11:55 Room Air 10/04/18 11:00 98.0 80 16 125/68 (87) 92 98.0 10/03/18 07:40 2.0 Labs Laboratory Tests Test 10/03/18 12:05 White Blood Count 6.1 x10^3/uL (4.0-11.0) Red Blood Count 3.77 x10^6/uL (3.50-5.40) Hemoglobin 12.0 g/dL (12.0-15.5) Hematocrit 35.8 % (36.0-47.0) Mean Corpuscular Volume 95 fL (79-100) Mean Corpuscular Hemoglobin 32 pg (25-35) Mean Corpuscular Hemoglobin Concent 34 g/dL (31-37) Red Cell Distribution Width 15.6 % (11.5-14.5) Platelet Count 334 x10^3/uL (140-400) Neutrophils (%) (Auto) 47 % (31-73) Lymphocytes (%) (Auto) 43 % (24-48) Monocytes (%) (Auto) 9 % (0-9) Eosinophils (%) (Auto) 2 % (0-3) Basophils (%) (Auto) 1 % (0-3) Neutrophils # (Auto) 2.9 x10^3/uL (1.8-7.7) Lymphocytes # (Auto) 2.6 x10^3/uL (1.0-4.8) Monocytes # (Auto) 0.5 x10^3/uL (0.0-1.1) Eosinophils # (Auto) 0.1 x10^3/uL (0.0-0.7) Basophils # (Auto) 0.1 x10^3/uL (0.0-0.2) Sodium Level 132 mmol/L (136-145) Potassium Level 3.0 mmol/L (3.5-5.1) Chloride Level 96 mmol/L (98-107) Carbon Dioxide Level 25 mmol/L (21-32) Anion Gap 11 (6-14) Blood Urea Nitrogen 17 mg/dL (7-20) Creatinine 0.7 mg/dL (0.6-1.0) Estimated GFR (Cockcroft-Gault) 79.0 BUN/Creatinine Ratio 24 (6-20) Glucose Level 114 mg/dL (70-99) Calcium Level 9.0 mg/dL (8.5-10.1) Total Bilirubin 0.6 mg/dL (0.2-1.0) Aspartate Amino Transf (AST/SGOT) 21 U/L (15-37) Alanine Aminotransferase (ALT/SGPT) 25 U/L (14-59) Alkaline Phosphatase 119 U/L (46-116) Total Protein 7.0 g/dL (6.4-8.2) Albumin 3.5 g/dL (3.4-5.0) Albumin/Globulin Ratio 1.0 (1.0-1.7) Allergies Allergies Coded Allergies Type Severity Reaction Last Updated Verified hydrocodone Allergy Intermediate 08/18/18 Yes ketoprofen Allergy Intermediate Rash 05/28/18 Yes propoxyphene Allergy Mild Itching 05/28/18 Yes Disposition/Orders: Other (d/c to snf) Patient Instructions d./c planning 37 min ARMAND COYNE MD Oct 04, 2018 12:52
[2018-10-04] MEDS ORDERED: OXYC1TAB15 PO (12:54)
[2018-10-04] MEDS ORDERED: LIDO700A21 TD (12:54)
--- NOTE | 2018-10-04 12:55 | SNU/HH DC ---
DISCHARGE ORDERS DISCHARGE INFORMATION: FINAL DIAGNOSIS Problems Medical Problems: (1) Right humeral fracture Status: Acute CONDITION ON DISCHARGE: Stable CODE STATUS: Code Status: Full NURSING HOME: SNF STAY <30 DAYS: Yes HOSPICE: HOSPICE: No HOSPICE EVAL & TREAT: No LTAC: ADMIT TO LTAC: No POST DISCHARGE ORDERS: ACTIVITY ORDERS: Activity as tolerated WEIGHT BEARING STATUS: Non weight bearing DIET AFTER DISCHARGE: Regular WOUND/INCISION CARE: No wound care needed CHECKS AFTER DISCHARGE: CHECKS AFTER DISCHARGE: Check blood press - daily TREATMENT/EQUIPMENT ORDERS: ADAPTIVE EQUIPMENT NEEDED: Brace/splint Physical Therapy For: Evalulation/Treatment Occupational Therapy For: Evaluation/Treatment DISCHARGE MEDICATIONS: Home Meds Active Scripts Lidocaine (Lidocaine PATCH ) 1 Each Adh..patch, 1 PATCH TD DAILY for pain for 10 Days, #10 PATCH Prov:ARMAND COYNE MD 10/04/18 Oxycodone/Apap 5-325 (PERCOCET 5-325 MG TABLET ) 1 Each Tablet, 1 TAB PO PRN Q4HRS PRN for SEVERE PAIN 7-10 for 10 Days, #20 TAB Prov:ARMAND COYNE MD 10/04/18 Enoxaparin Sodium (ENOXAPARIN SODIUM) 40 Mg/0.4 Ml Disp.syrin, 40 MG SQ DAILY for clot prevention, #2 DIS.SYR Prov:DADA HEMPHILL MD 08/19/18 Docusate Sodium (COLACE) 100 Mg Capsule, 100 MG PO PRN BID PRN for CONSTIPATION, #30 CAP Prov:DADA HEMPHILL MD 08/19/18 Tramadol Hcl (TRAMADOL HCL) 50 Mg Tablet, 25 MG PO BID PRN for PAIN, #15 TAB Prov:DADA HEMPHILL MD 08/19/18 Reported Medications Imipramine Hcl (IMIPRAMINE HCL) 10 Mg Tablet, 10 MG PO DAILY for depression, TAB 08/16/18 Sennosides/Docusate Sodium (SENNA PLUS TABLET) 1 Each Tablet, 1 EACH PO DAILY PRN for CONSTIPATION, TAB 05/28/18 Fluticasone Propionate (FLUTICASONE PROPIONATE [place] SPR[place]) 16 Gm [place].susp, 2 [place]AY NS DAILY PRN for ALLERGIES MDD daily, #1 INHALER 11 Refills 05/28/18 Loratadine (LORATADINE) 10 Mg Tablet, 1 TAB PO DAILY PRN for ALLERGIES MDD daily, #30 TAB 5 Refills 05/28/18 Bisacodyl (DULCOLAX) 5 Mg Tablet.dr, 10 MG PO PRN DAILY PRN for CONSTIPATION, TAB 0 Refills 05/28/18 Menthol (BIOFREEZE) 118 Ml Gel..ml., 118 ML TP Q2HR W/A for pain, EACH 05/28/18 Acetaminophen (TYLENOL) 325 Mg Tablet, 2 TAB PO PRN Q4HRS PRN for PAIN, #30 TAB 05/28/18 Cholecalciferol (Vitamin D3) (VITAMIN D3) 1,000 Unit Tablet, 3 TAB PO DAILY for supplements, #30 TAB 5 Refills 05/28/18 Multivits,Ca,Minerals/Iron/Fa (THERA-TABS M CAPLET) 1 Each Tablet, 1 EACH PO DAILY for supplement, TAB 05/28/18 Ranitidine Hcl (RANITIDINE HCL) 150 Mg Tablet, 150 MG PO DAILY for GERD, TAB 05/28/18 Metoprolol Tartrate (METOPROLOL TARTRATE) 25 Mg Tablet, 1 TAB PO BID for htn, #180 TAB 1 Refill 05/28/18 Hydrochlorothiazide (HYDROCHLOROTHIAZIDE TABLET ) 25 Mg Tablet, 25 MG PO DAILY for DIURETIC, TAB 0 Refills 05/28/18 Calcium Carbonate/Vitamin D3 (CALCIUM 600 + VIT D 200 TABLET) 1 Each Tablet, 1 EACH PO DAILY for supplement, TAB 05/28/18 Aspirin (ASPIRIN) 81 Mg Tab.chew, 1 TAB PO DAILY for thrombprophylaxis, #30 TAB 3 Refills 05/28/18 Alendronate Sodium (ALENDRONATE SODIUM) 70 Mg Tablet, 1 TAB PO WEEKLY for osteoporosis, #4 TAB 3 Refills 05/28/18 ARMAND COYNE MD Oct 04, 2018 12:55
--- NOTE | 2018-10-04 13:25 | NUR ---
SS following up with discharge planning. Pt accepted at [facility], ; fax [phone]. SS phoned and faxed discharge orders to [facility]. Pt will discharge today and go to [facility] at 1600 via [facility] ambulance, . Pt, pt's son, and pt's RN notified.
[2018-10-04 15:00] VITALS: BP 115/66
== END 2018-10-04 16:46 | disposition home or self-care (01) | DRG 563 ==
LOC: 4 NORTH 19:57
PROVIDERS: ADMIT Internal Medicine; ATTEND Internal Medicine
PROC: 0PSFXZZ Reposition Right Humeral Shaft, External Approach (ICD-10-PCS; principal; 2018-09-30)
DX: S42.301A Unspecified fracture of shaft of humerus, right arm, initial encounter for closed fracture (principal); I50.32 Chronic diastolic (congestive) heart failure; F03.90 Unspecified dementia, unspecified severity, without behavioral disturbance, psychotic disturbance, mood disturbance, and anxiety; I11.0 Hypertensive heart disease with heart failure; J45.909 Unspecified asthma, uncomplicated; Z82.49 Family history of ischemic heart disease and other diseases of the circulatory system; X58.XXXA Exposure to other specified factors, initial encounter; M19.90 Unspecified osteoarthritis, unspecified site; Z79.82 Long term (current) use of aspirin; Z79.899 Other long term (current) drug therapy; Z88.8 Allergy status to other drugs, medicaments and biological substances; Y93.89 Activity, other specified; Y92.89 Other specified places as the place of occurrence of the external cause; Y99.8 Other external cause status
CPT/HCPCS: 36415; 73060; 80048; 80053; 81001; 85025; 87086; 87641; J2704; J7120; 97110; 97116; 97530; 97535; G0378

== ENCOUNTER → 2018-09-29 | Outpatient (CLI) | payer MEDICARE ==
[~2018-09-29] MED LIST: ACET325T9 PO; ALEN70TA6 PO; ASPI-630 PO; BISA-42 PO; CALC1TAB75 PO; CHOL10003 PO; DOCU-109 PO; ENOX40DI3 SQ; FLUT16SP NS; HYDR-2145 PO; IMIP10TA2 PO; LIDO700A21 TD; LORA10TA3 PO; MENT118G TP; METO25TA4 PO; MULT-480 PO; OXYC1TAB15 PO; RANI150T2 PO; SENN1TAB62 PO; TRAM50TA PO
--- NOTE | 2018-09-30 01:24 | RAD ---
Single view right humerus dated 09/29/2018. Comparison made to 09/08/2018. CLINICAL INDICATION: Follow-up fracture. FINDINGS: Single view of humerus shows a complete fracture at the right humeral midshaft with approximately 1 shaft width displacement at the fracture site. There is some increasing lateral angulation relative to the prior exam with increasing callus formation. No new fractures identified. IMPRESSION: Healing displaced right humeral midshaft fracture with increasing angulation at the fracture site relative to the prior exam. Electronically signed by: Víctor Vines MD (09/30/2018 1:21 AM) [id number]
[2018-09-30 07:00] VITALS: BP 127/74
== END | disposition home or self-care (01) ==
LOC: EDSTATUS 09-30 09:06
PROVIDERS: ATTEND Internal Medicine
DX: S42.391D Other fracture of shaft of right humerus, subsequent encounter for fracture with routine healing (principal); X58.XXXD Exposure to other specified factors, subsequent encounter
CPT/HCPCS: 73060